=== PATIENT | male | born 1950 | race Caucasian/White ===

== ENCOUNTER 2016-03-28 03:35 | Emergency (ER) | payer OTHER ==
--- NOTE | 2016-03-28 04:19 | ER Document Report ---
ED Foreign Body - General Chief Complaint: Swallowed Foreign Body Stated Complaint: THROAT PROBLEMS Time seen by provider: 04:15 Notes: Patient is a 65-year-old male that comes emergency department for chief complaint of suspected swallowing of a foreign body, he states that he woke to feeling a small creature at the back of his throat and he states he accidentally swallowed this. Patient states there are tons of "tiny mice and lizards" in his room above a garage and he thinks he swallowed one. He states he had a mild discomfort at the back of his throat, denies any other symptoms. TRAVEL OUTSIDE OF THE [place] IN LAST 30 DAYS: No - Related Data Allergies/Adverse Reactions: "cholesterol medicines" Allergy (Uncoded 03/28/16 04:17) Past Medical History - General Information source: Patient - Social History Smoking Status: Never Smoker Chew tobacco use (# tins/day): No Frequency of alcohol use: None Drug Abuse: None Lives with: Alone Family History: Reviewed & Not Pertinent Patient has suicidal ideation: No Patient has homicidal ideation: No - Past Medical History Cardiac Medical History: Reports: Hx Atrial Fibrillation, Hx Hypertension Denies: Hx DVT Neurological Medical History: Reports: Hx Seizures Renal/ Medical History: Denies: Hx Peritoneal Dialysis Past Surgical History: Reports: Hx Neurologic Surgery - as a child for seizures - has not had seizures since that time. - Immunizations Immunizations up to date: Yes Hx Diphtheria, Pertussis, Tetanus Vaccination: No Review of Systems - Review of Systems Constitutional: No symptoms reported EENT: See HPI Cardiovascular: No symptoms reported Respiratory: See HPI Gastrointestinal: No symptoms reported Genitourinary: No symptoms reported Male Genitourinary: No symptoms reported Musculoskeletal: No symptoms reported Skin: No symptoms reported Hematologic/Lymphatic: No symptoms reported Neurological/Psychological: No symptoms reported Physical Exam - Vital signs Vitals: Temp Pulse BP Pulse Ox 97.9 F 114 H 140/74 H 94 03/28/16 03:40 03/28/16 03:40 03/28/16 03:40 03/28/16 03:40 Interpretation: Normal - General General appearance: Appears well, Alert In distress: None - HEENT Head: Normocephalic, Atraumatic Eyes: Normal Conjunctiva: Normal Extraocular movements intact: Yes Eyelashes: Normal Pupils: PERRL Nasal: Normal Mouth/Lips: Normal Mucous membranes: Normal Pharynx: Normal Neck: Normal - Respiratory Respiratory status: No respiratory distress. No: Respiratory distress, Tachypnea Chest status: Nontender Breath sounds: Normal. No: Decreased air movement, Wheezing Chest palpation: Normal - Cardiovascular Rhythm: Irregularly irregular, Tachycardia Heart sounds: S1 appreciated, S2 appreciated Murmur: No - Abdominal Inspection: Normal Distension: No distension Bowel sounds: Normal Tenderness: Nontender. No: Tender, Guarding Organomegaly: No organomegaly - Back Back: Normal, Nontender. No: Tender - Extremities General upper extremity: Normal inspection, Nontender, Normal color, Normal ROM , Normal temperature General lower extremity: Normal inspection, Nontender, Normal color, Normal ROM , Normal temperature, Normal weight bearing. 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 On reexamination patient states his throat no longer feels irritated, he denies any current symptoms. Patient found to have an elevated heart rate, patient is in atrial fibrillation. 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 Patient declines any additional workup, refuses any additional evaluation, states that he does agree that he will return immediately if he develops any chest pain, shortness of breath, dizziness , or any other concerning or worsening symptoms. Despite patient's slightly strange chief complaint, he is informed and clear with his statements about his medical history, his treatments and plan, and he does state clearly symptoms he will return for. - Vital Signs Vital signs: Temp Pulse Resp BP Pulse Ox 98.5 F 116 H 28 H 134/87 H 93 03/28/16 05:09 03/28/16 05:09 03/28/16 05:09 03/28/16 05:09 03/28/16 05:09 Discharge - Discharge Clinical Impression: Throat discomfort Condition: Stable Disposition: HOME, SELF-CARE Additional Instructions: No foreign bodies are seen on imaging, it is possibly swallowed an insect, no concerning findings on imaging. Your heart rate is elevated beyond a normal range, please continue your medications, call your provider for additional management as discussed. Please return immediately for any concerning symptoms including shortness of breath, chest pain, dizziness, etc.
[2016-03-28 05:10] VITALS: BP 134/87
== END 2016-03-28 05:40 | disposition home or self-care (01) ==
LOC: ER 03:35
DX: R09.89 Other specified symptoms and signs involving the circulatory and respiratory systems (principal); I48.91 Unspecified atrial fibrillation; I10 Essential (primary) hypertension; Z79.02 Long term (current) use of antithrombotics/antiplatelets
CPT/HCPCS: 70360; 71020; 99283

== ENCOUNTER 2016-07-17 12:53 | Emergency (ER) | payer SELFPAY ==
--- NOTE | 2016-07-17 13:46 | ER Document Report ---
ED Medical Screen (RME) - General Chief Complaint: Breathing Difficulty Stated Complaint: DIFFICULTY BREATHING Time Seen by Provider: 07/17/16 13:41 Mode of Arrival: Ambulatory Information source: Patient TRAVEL OUTSIDE OF THE [place] 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 Allergies/Adverse Reactions: Penicillins Allergy (Verified 07/17/16 12:56) "cholesterol medicines" Allergy (Uncoded 03/28/16 04:17) Past Medical History - General Information source: Patient - Social History Cigarette use (# per day): No - Past Medical History Cardiac Medical History: Reports: Hx Atrial Fibrillation, Hx Hypertension Denies: Hx DVT Pulmonary Medical History: Reports: None Neurological Medical History: Reports: Hx Seizures Endocrine Medical History: Reports: None Renal/ Medical History: Denies: Hx Peritoneal Dialysis Psychiatric Medical History: Reports: None Past Surgical History: Reports: Hx Neurologic Surgery - as a child for seizures - has not had seizures since that time. - Immunizations Immunizations up to date: Yes Hx Diphtheria, Pertussis, Tetanus Vaccination: No Review of Systems - Review of Systems Constitutional: No symptoms reported EENT: No symptoms reported Cardiovascular: Dyspnea Respiratory: Cough, Short of breath. denies: Wheezing Gastrointestinal: No symptoms reported Neurological/Psychological: No symptoms reported Physical Exam - Vital signs Vitals: Temp Pulse Resp BP Pulse Ox 98.3 F 97 26 H 156/102 H 94 07/17/16 12:56 07/17/16 12:56 07/17/16 12:56 07/17/16 12:56 07/17/16 12:56 Interpretation: Hypertensive, Tachypneic. No: Tachycardic, Hypoxic, Febrile - General General appearance: Appears well, Alert In distress: None - HEENT Head: Normocephalic Eyes: Normal - Respiratory Respiratory status: No respiratory distress Breath sounds: Rales - BIBASILAR - Cardiovascular Rhythm: Irregularly irregular - Abdominal Inspection: Morbidly Obese Course - Vital Signs Vital signs: Temp Pulse Resp BP Pulse Ox 98.3 F 97 26 H 156/102 H 94 07/17/16 12:56 07/17/16 12:56 07/17/16 12:56 07/17/16 12:56 07/17/16 12:56
[2016-07-17] MEDS ORDERED: IPRATROPIUM/ALBUTEROL 0.5-2.5 MG/3 ML AMPUL NEB ONE (14:31)
[2016-07-17 14:40] LABS: ABSOLUTE BASOPHILS # (AUTO) 0.1 10^3/uL (0.0-0.2); ABSOLUTE EOSINOPHILS # (AUTO) 0.5 10^3/uL (0.0-0.6); ABSOLUTE LYMPHOCYTES (AUTO) 1.3 10^3/uL (0.5-4.7); ABSOLUTE MONOCYTES (AUTO) 0.8 10^3/uL (0.1-1.4); ABSOLUTE NEUT (AUTO) 5.7 10^3/uL (1.7-8.2); BASOPHILS % (AUTO) 0.9 % (0-2); EOSINOPHILS % (AUTO) 5.8 % (0-6); HEMATOCRIT 41.8 % (37.9-51.0); HGB HCT DIFFERENCE 0.2; LYMPHOCYTES % (AUTO) 16.1 % (13-45); MEAN CORPUSCULAR HEMOGLOBIN 29.1 pg (27.0-33.4); MEAN CORPUSCULAR HGB CONC 33.5 g/dL (32.0-36.0); MEAN CORPUSCULAR VOLUME 87 fl (80-97); MONOCYTES % (AUTO) 9.4 % (3-13); RED BLOOD COUNT 4.82 10^6/uL (4.35-5.55); RED CELL DISTRIBUTION WIDTH 13.5 % (11.5-14.0); SEGMENTED NEUTROPHILS % (AUTO) 67.8 % (42-78); WHITE BLOOD COUNT 8.4 10^3/uL (4.0-10.5)
--- NOTE | 2016-07-17 14:57 | RADIOLOGY REPORT (SQ) ---
EXAM DESCRIPTION: CHEST PA/LAT COMPLETED DATE/TIME: 07/17/2016 2:39 pm REASON FOR STUDY: DYSPNEA, COUGH COMPARISON: 03/28/2016, 03/12/2015 NUMBER OF VIEWS: Two view TECHNIQUE: Frontal and lateral radiographic images of the chest acquired. LIMITATIONS: None. FINDINGS: LUNGS AND PLEURA: Chronic pleural thickening left costophrenic angle. Chronic volume loss on the left. No effusions. MEDIASTINUM AND HILAR STRUCTURES: Stable heart size and mediastinal structures. HEART AND VASCULAR STRUCTURES: Stable appearance. BONES: No acute findings. HARDWARE: None in the chest. OTHER: No other significant finding. IMPRESSION: Stable, chronic changes. TECHNICAL DOCUMENTATION: JOB ID: [id number] [employer]- All Rights Reserved
[2016-07-17 14:58] LABS: ALANINE AMINOTRANSFERASE 28 U/L (21-72); ALBUMIN 3.8 g/dL (3.5-5.0); ALKALINE PHOSPHATASE 72 U/L (38-126); ANION GAP 10 (5-19); ASPARTATE AMINO TRANSFERASE 30 U/L (17-59); BILIRUBIN,DIRECT 0.3 mg/dL (0.0-0.4); BILIRUBIN,TOTAL 0.5 mg/dL (0.2-1.3); BLOOD UREA NITROGEN 11 mg/dL (7-20); CALCIUM 9.2 mg/dL (8.4-10.2); CARBON DIOXIDE 26 mmol/L (22-30); CHLORIDE 102 mmol/L (98-107); CREATININE RESULT 0.71 mg/dL (0.52-1.25); GLUCOSE 102 mg/dL (75-110); POTASSIUM 4.1 mmol/L (3.6-5.0); TOTAL PROTEIN 6.8 g/dL (6.3-8.2)
--- NOTE | 2016-07-17 15:01 | ER Document Report ---
ED General - General Chief Complaint: Breathing Difficulty Stated Complaint: DIFFICULTY BREATHING Time Seen by Provider: 07/17/16 13:41 Mode of Arrival: Ambulatory Information source: Patient Notes: 66-year-old male presents with complaints of shortness of breath. Patient notes that he has a history of A. fib is on Eliquis patient denies any fevers or chills admits that he is just feeling weak. Denies any chest pain denies any bloody bowel movements or vomiting TRAVEL OUTSIDE OF THE [place] IN LAST 30 DAYS: No - HPI Onset: Other - 2 week duration Onset/Duration: Persistent Quality of pain: No pain Severity: Mild Pain Level: Denies Associated symptoms: Shortness of breath, Weakness Exacerbated by: Denies Relieved by: Denies Similar symptoms previously: Yes Recently seen / treated by doctor: Yes - Related Data Allergies/Adverse Reactions: Penicillins Allergy (Verified 07/17/16 12:56) "cholesterol medicines" Allergy (Uncoded 03/28/16 04:17) Past Medical History - General Information source: Patient - Social History Smoking Status: Never Smoker Cigarette use (# per day): No Chew tobacco use (# tins/day): No Smoking Education Provided: No Frequency of alcohol use: None Family History: Reviewed & Not Pertinent Patient has suicidal ideation: No Patient has homicidal ideation: No - Past Medical History Cardiac Medical History: Reports: Hx Atrial Fibrillation, Hx Hypertension Denies: Hx DVT Pulmonary Medical History: Reports: None Neurological Medical History: Reports: Hx Seizures Endocrine Medical History: Reports: None Renal/ Medical History: Denies: Hx Peritoneal Dialysis Psychiatric Medical History: Reports: None Past Surgical History: Reports: Hx Neurologic Surgery - as a child for seizures - has not had seizures since that time. - Immunizations Immunizations up to date: Yes Hx Diphtheria, Pertussis, Tetanus Vaccination: No Review of Systems - Review of Systems Notes: REVIEW OF SYSTEMS: CONSTITUTIONAL : Denies fever, chills, or sweats. Denies recent illness. EENT: Denies eye, ear, throat, or mouth pain or symptoms. Denies nasal or sinus congestion or discharge. Denies throat, tongue, or mouth swelling or difficulty swallowing. CARDIOVASCULAR: Denies chest pain. Denies palpitations or racing or irregular heart beat. Denies ankle edema. RESPIRATORY: Admits to shortness of breath GASTROINTESTINAL: Denies abdominal pain or distention. Denies nausea, vomiting , or diarrhea. Denies blood in vomitus, stools, or per rectum. Denies black, tarry stools. Denies constipation. GENITOURINARY: Denies difficulty urinating, painful urination, burning, frequency, blood in urine, or discharge. MUSCULOSKELETAL: Denies back or neck pain or stiffness. Denies joint pain or swelling. SKIN: Denies rash, lesions or sores. HEMATOLOGIC : Denies easy bruising or bleeding. LYMPHATIC: Denies swollen, enlarged glands. NEUROLOGICAL: Denies confusion or altered mental status. Denies passing out or loss of consciousness. Denies dizziness or lightheadedness. Denies headache. Denies weakness or paralysis or loss of use of either side. Denies problems with gait or speech. Denies sensory loss, numbness, or tingling. Denies seizures. PSYCHIATRIC: Denies anxiety or stress. Denies depression, suicidal ideation, or homicidal ideation. ALL OTHER SYSTEMS REVIEWED AND NEGATIVE. Dictation was performed using [employer] voice recognition software PHYSICAL EXAMINATION: GENERAL: Well-appearing, well-nourished and in no acute distress. HEAD: Atraumatic, normocephalic. EYES: Pupils equal round and reactive to light, extraocular movements intact, sclera anicteric, conjunctiva are normal. ENT: Nares patent, oropharynx clear without exudates. Moist mucous membranes. NECK: Normal range of motion, supple without lymphadenopathy LUNGS: Breath sounds clear to auscultation bilaterally and equal. No wheezes rales or rhonchi. HEART: Irregular rate and rhythm ABDOMEN: Soft, nontender, nondistended abdomen. No guarding, no rebound. No masses appreciated. Musculoskeletal: Normal range of motion, no pitting or edema. No cyanosis. NEUROLOGICAL: Cranial nerves grossly intact. Normal speech, normal gait. Normal sensory, motor exams PSYCH: Normal mood, normal affect. SKIN: Warm, Dry, normal turgor, no rashes or lesions noted. Physical Exam - Vital signs Vitals: Temp Pulse Resp BP Pulse Ox 98.3 F 97 26 H 156/102 H 94 07/17/16 12:56 07/17/16 12:56 07/17/16 12:56 07/17/16 12:56 07/17/16 12:56 Course - Re-evaluation Re-evalutation: 07/17/16 15:01 Patient is currently in a flutter, he states he is on Cardizem and Eliquis. Otherwise he appears well, a CT of the chest has been ordered nonetheless. 07/17/16 17:25 CT noted no significant abnormality. Patient is otherwise well-appearing in no distress. 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 Patient is covered with both blood thinner and rate control therefore I do not expect his a flutter to be a specific issue After performing a Medical Screening Examination, I estimate there is LOW risk for INTRACRANIAL HEMORRHAGE, ISCHEMIC CVA, MALIGNANT DYSRHYTHMIA, ACUTE CORONARY SYNDROME, MENINGITIS, PULMONARY EMBOLISM, or SEPSIS thus I consider the discharge disposition reasonable. I have reevaluated this patient multiple times and no significant life threatening changes are noted. The patient and I have discussed the diagnosis and risks, and we agree with discharging home with close follow-up with the understanding that symptoms and presentations can change. We also discussed returning to the Emergency Department immediately if new or worsening symptoms occur. We have discussed the symptoms which are most concerning (e.g., changing or worsening pain, weakness, vomiting, fever) that necessitate immediate return. - Vital Signs Vital signs: Temp Pulse Resp BP Pulse Ox 98.3 F 97 26 H 156/102 H 94 07/17/16 12:56 07/17/16 12:56 07/17/16 12:56 07/17/16 12:56 07/17/16 12:56 - Laboratory Result Diagrams: 07/17/16 14:25 07/17/16 14:25 - Diagnostic Test Radiology reviewed: Image reviewed, Reports reviewed - EKG Interpretation by Me EKG shows normal: Sinus rhythm, [place], Intervals Rhythm: A.Flutter Discharge - Discharge Clinical Impression: Atrial flutter Qualifiers: Atrial flutter type: typical Qualified Code(s): I48.3 - Typical atrial flutter High blood pressure Qualifiers: Hypertension type: essential hypertension Qualified Code(s): I10 - Essential ( primary) hypertension Condition: Stable Disposition: HOME, SELF-CARE Instructions: Atrial Fibrillation ([facility]) Referrals: [facility] [Primary Care Provider] - Follow up tomorrow
[2016-07-17 15:19] LABS: TROPONIN I < 0.012 ng/mL
--- NOTE | 2016-07-17 16:41 | RADIOLOGY REPORT (SQ) ---
EXAM DESCRIPTION: CTA CHEST COMPLETED DATE/TIME: 07/17/2016 4:18 pm REASON FOR STUDY: hx afib , sob COMPARISON: None. TECHNIQUE: CT scan of the chest performed using helical scanning technique with dynamic intravenous contrast injection. Images reviewed with lung, soft tissue and bone windows. Reconstructed coronal and sagittal MPR images reviewed. Additional 3 dimensional post-processing performed to develop Maximal Intensity Projection images (TX P). All images stored on PACS. All CT scanners at this facility use dose modulation, iterative reconstruction, and/or weight based d osing when appropriate to reduce radiation dose to as low as reasonably achievable (ALARA). [facility]: Dose Right [facility]: CareDose [facility]: Dose Right [facility]: Teradose 4D [facility]: [employer] CONTRAST TYPE AND DOSE: 86 mL Isovue 370- low osmolar. RENAL FUNCTION: GFR > 60. RADIATION DOSE: 79.69 mGy. LIMITATIONS: None. FINDINGS: LUNGS AND PLEURA: No pneumothorax. Chronic interstitial changes and platelike atelectasis in the left upper lobe and middle lobe. Small bilateral Subpleural nodularity some of which appears calcified. No pleural effusions. AORTA AND GREAT VESSELS: No aneurysm or dissection. HEART: No pericardial effusion. PULMONARY ARTERIES: No emboli visualized in the main pulmonary arteries or the segmental branches. HILAR AND MEDIASTINAL STRUCTURES: Scattered small nodes. HARDWARE: None in the chest. UPPER ABDOMEN: 5 cm left renal cyst. Limited exam. THYROID AND OTHER SOFT TISSUES: No masses. No adenopathy. BONES: No acute or significant finding. 3D MIPS: Confirm above findings. OTHER: No other significant finding. IMPRESSION: No emboli visualized in the main pulmonary arteries or the segmental branches. Chronic interstitial changes and platelike atelectasis in the left upper lobe and middle lobe. Smal l bilateral Subpleural nodularity some of which appears calcified. Consider follow-up scan in 4-6 mo nths to document stability of pulmonary findings. TECHNICAL DOCUMENTATION: JOB ID: [id number] Quality ID # [id number]: Final reports with documentation of one or more dose reduction techniques (e.g., Au tomated exposure control, adjustment of the mA and/or kV according to patient size, use of iterative reconstruction technique) 2010 [employer]- All Rights Reserved
--- NOTE | 2016-07-17 17:06 | EKG REPORT ---
SEVERITY:- ABNORMAL ECG - ATRIAL FLUTTER, A-RATE 283 NONSPECIFIC INTRAVENTRICULAR CONDUCTION DELAY : Confirmed by: Nona Burris 17-Jul-2016 17:05:51
[2016-07-17 17:46] VITALS: BP 135/102
== END 2016-07-17 17:46 | disposition home or self-care (01) ==
LOC: ER 12:53
DX: I48.3 Typical atrial flutter (principal); I10 Essential (primary) hypertension; R53.1 Weakness; R06.02 Shortness of breath
CPT/HCPCS: 93005; 94640; 99285; 36415; 85025; 80053; 84484; 83880; 71020; 71275; 93010; J7620

== ENCOUNTER 2017-02-28 10:22 | Emergency (ER) | payer OTHER ==
--- NOTE | 2017-02-28 10:37 | ER Document Report ---
ED Medical Screen (RME) - General Chief Complaint: Dizziness Stated Complaint: POSSIBLE SIDE EFFECTS TO MEDICATION Time Seen by Provider: 02/28/17 10:36 Mode of Arrival: Wheelchair Information source: Patient TRAVEL OUTSIDE OF THE [place] IN LAST 30 DAYS: No - HPI Patient complains to provider of: dizziness Onset: Other - pt. states he was recently started on diltiazem and feels the medicine is making him dizzy and sleepy - Related Data Allergies/Adverse Reactions: Penicillins Allergy (Verified 02/28/17 10:26) "cholesterol medicines" Allergy (Uncoded 02/28/17 10:26) Past Medical History - Past Medical History Cardiac Medical History: Reports: Hx Atrial Fibrillation, Hx Hypertension Denies: Hx DVT Neurological Medical History: Reports: Hx Seizures Renal/ Medical History: Denies: Hx Peritoneal Dialysis Past Surgical History: Reports: Hx Neurologic Surgery - as a child for seizures - has not had seizures since that time. - Immunizations Immunizations up to date: Yes Hx Diphtheria, Pertussis, Tetanus Vaccination: No Physical Exam - Vital signs Vitals: Temp Pulse Resp BP Pulse Ox 98.1 F 105 H 24 H 164/109 H 92 02/28/17 10:28 02/28/17 10:28 02/28/17 10:28 02/28/17 10:28 02/28/17 10:28 Course - Vital Signs Vital signs: Temp Pulse Resp BP Pulse Ox 98.1 F 105 H 24 H 164/109 H 92 02/28/17 10:28 02/28/17 10:28 02/28/17 10:28 02/28/17 10:28 02/28/17 10:28
[2017-02-28 11:45] LABS: ABSOLUTE BASOPHILS # (AUTO) 0.1 10^3/uL (0.0-0.2); ABSOLUTE EOSINOPHILS # (AUTO) 0.3 10^3/uL (0.0-0.6); ABSOLUTE LYMPHOCYTES (AUTO) 1.4 10^3/uL (0.5-4.7); ABSOLUTE NEUT (AUTO) 7.4 10^3/uL (1.7-8.2); BASOPHILS % (AUTO) 0.5 % (0-2); EOSINOPHILS % (AUTO) 2.6 % (0-6); HEMATOCRIT 42.5 % (37.9-51.0); HEMOGLOBIN 14.6 g/dL (13.5-17.0); LYMPHOCYTES % (AUTO) 13.9 % (13-45); MEAN CORPUSCULAR HEMOGLOBIN 29.8 pg (27.0-33.4); MEAN CORPUSCULAR HGB CONC 34.4 g/dL (32.0-36.0); MEAN CORPUSCULAR VOLUME 87 fl (80-97); MONOCYTES % (AUTO) 10.1 % (3-13); PLATELET COUNT 240 10^3/uL (150-450); RED BLOOD COUNT 4.91 10^6/uL (4.35-5.55); RED CELL DISTRIBUTION WIDTH 13.9 % (11.5-14.0); SEGMENTED NEUTROPHILS % (AUTO) 72.9 % (42-78); TOTAL CELLS COUNTED % (AUTO) 100 %; WHITE BLOOD COUNT 10.2 10^3/uL (4.0-10.5)
[2017-02-28 12:01] LABS: ALBUMIN 4.2 g/dL (3.5-5.0); ANION GAP 10 (5-19); BLOOD UREA NITROGEN 13 mg/dL (7-20); CARBON DIOXIDE 29 mmol/L (22-30); CHLORIDE 101 mmol/L (98-107); GLUCOSE 104 mg/dL (75-110); POTASSIUM 4.2 mmol/L (3.6-5.0); SODIUM 139.9 mmol/L (137-145); TOTAL PROTEIN 6.7 g/dL (6.3-8.2)
[2017-02-28 12:03] LABS: ALANINE AMINOTRANSFERASE 27 U/L (21-72); ALKALINE PHOSPHATASE 80 U/L (38-126); ASPARTATE AMINO TRANSFERASE 26 U/L (17-59); BILIRUBIN,DIRECT 0.2 mg/dL (0.0-0.4); BILIRUBIN,TOTAL 0.5 mg/dL (0.2-1.3); CALCIUM 9.7 mg/dL (8.4-10.2); CREATINE KINASE 132 U/L (55-170)
[2017-02-28 12:08] LABS: APPEARANCE,URINE CLEAR; BILIRUBIN,URINE NEGATIVE (NEGATIVE); COLOR,URINE YELLOW; GLUCOSE, URINE NEGATIVE (NEGATIVE); KETONES,URINE NEGATIVE (NEGATIVE); LEUKOCYTE ESTERASE,URINE NEGATIVE (NEGATIVE); NITRITE,URINE NEGATIVE (NEGATIVE); PROTEIN,URINE NEGATIVE (NEGATIVE); URINE SPECIFIC GRAVITY 1.013
[2017-02-28 12:13] LABS: CREATINE KINASE MB 1.67 ng/mL (<4.55)
[2017-02-28 12:16] LABS: TROPONIN I < 0.012 ng/mL
--- NOTE | 2017-02-28 13:00 | RADIOLOGY REPORT (SQ) ---
EXAM DESCRIPTION: CT HEAD WITHOUT COMPLETED DATE/TIME: 02/28/2017 12:29 pm REASON FOR STUDY: dizziness COMPARISON: None. TECHNIQUE: Axial images acquired through the brain without intravenous contrast. Images reviewed wi th bone, brain and subdural windows. Images stored on PACS. All CT scanners at this facility use dose modulation, iterative reconstruction, and/or weight based d osing when appropriate to reduce radiation dose to as low as reasonably achievable (ALARA). [facility]: Dose Right [facility]: CareDose [facility]: Dose Right [facility]: Teradose 4D [facility]: [employer] RADIATION DOSE: CT Rad equipment meets quality standard of care and radiation dose reduction techniq ues were employed. CTDIvol: 60.5 mGy. DLP: 1163 mGy-cm. mGy. LIMITATIONS: None. FINDINGS: VENTRICLES: Normal size and contour. CEREBRUM: No hemorrhage. No midline shift. Encephalomalacia is noted at the left temporal lobe. O therwise, the lopez-white matter differentiation is preserved. There is no evidence for acute territo rial infarct. CEREBELLUM: No hemorrhage. No alteration of density. No evidence for acute infarction. EXTRAAXIAL SPACES: There is hyperdensity along the left cerebral convexity measuring up to 2 mm in th ickness. ORBITS AND GLOBE: Symmetrical contour of the globes. CALVARIUM: Postsurgical changes of craniotomy at the left calvarium. No depressed fracture. PARANASAL SINUSES: Mild mucosal thickening at the maxillary sinuses. SOFT TISSUES: No hematoma. IMPRESSION: Linear hyperdensity along the left cerebral convexity, may represent a small subdural he morrhage versus postsurgical changes. Comparison with prior studies would be helpful. If none are a vailable, short-term followup CT can be obtained to re-evaluate. No acute territorial infarct. Encephalomalacia at the left temporal lobe, may be related to prior lebron rgery. EVIDENCE OF ACUTE STROKE: NO. COMMENT: Pertinent positive or negative findings of the imaging study reported as a CRITICAL EXAM kimberly AVITIA DO at12:48 hrs on 02/28/2017. Category of Critical Exam: Linear hyperdensity along the left cerebral convexity, may represent a sma ll subdural hemorrhage versus postsurgical changes. Quality ID # [id number]: Final reports with documentation of one or more dose reduction techniques (e.g., Au tomated exposure control, adjustment of the mA and/or kV according to patient size, use of iterative reconstruction technique) TECHNICAL DOCUMENTATION: JOB ID: [id number] [place]-64 2010 [employer]- All Rights Reserved
--- NOTE | 2017-02-28 13:07 | RADIOLOGY REPORT (SQ) ---
EXAM DESCRIPTION: CHEST PA/LAT COMPLETED DATE/TIME: 02/28/2017 12:57 pm REASON FOR STUDY: cough COMPARISON: 07/17/2016, 03/28/2016 EXAM PARAMETERS: NUMBER OF VIEWS: two views TECHNIQUE: Digital Frontal and Lateral radiographic views of the chest acquired. RADIATION DOSE: NA LIMITATIONS: none FINDINGS: LUNGS AND PLEURA: Diffuse chronic pleural and parenchymal changes. All stable no acute op acities. MEDIASTINUM AND HILAR STRUCTURES: No masses or contour abnormalities. HEART AND VASCULAR STRUCTURES: Heart normal size. No evidence for failure. BONES: No acute findings. HARDWARE: None in the chest. OTHER: No other significant finding. IMPRESSION: Chronic changes. No acute findings. TECHNICAL DOCUMENTATION: JOB ID: [id number] [employer]- All Rights Reserved
[2017-02-28 13:16] LABS: INTERNATIONAL RATION (INR) 1.01
[2017-02-28 13:17] LABS: PARTIAL THROMBOPLASTIN TIME 37.8 SEC (23.5-35.8)
--- NOTE | 2017-02-28 14:34 | ER Document Report ---
ED General - General Chief Complaint: Dizziness Stated Complaint: POSSIBLE SIDE EFFECTS TO MEDICATION Time Seen by Provider: 02/28/17 10:36 Mode of Arrival: Wheelchair TRAVEL OUTSIDE OF THE [place] IN LAST 30 DAYS: No - HPI Patient complains to provider of: Dizziness Notes: Patient coming in with a history of A. shani on Xarelto states multiple syncopal episodes over the last week along with associated dyspnea states dizziness last for approximately 15 minutes. Patient states no head trauma states last time he has syncopal episodes approximately night prior when he fell into the toilet however denies hitting his head. Patient denies any other met past medical history other than seizure disorder which he had intracranial surgery performed in 1992 which cured his seizures. Patient states currently followed up with [facility] for his cardiac issues. Patient denies any fevers chills nausea vomiting diarrhea resting comfortably upon my evaluation. - Related Data Allergies/Adverse Reactions: Penicillins Allergy (Verified 02/28/17 10:26) "cholesterol medicines" Allergy (Uncoded 02/28/17 10:26) Home Medications: Current Home Medications Diltiazem HCl [Diltiazem ER] 180 mg PO DAILY 02/28/17 [History] Rivaroxaban [Xarelto] 20 mg PO QPM 02/28/17 [History] Past Medical History - General Information source: Patient - Social History Smoking Status: Former Smoker Frequency of alcohol use: None Drug Abuse: None Family History: Reviewed & Not Pertinent Patient has suicidal ideation: No Patient has homicidal ideation: No - Past Medical History Cardiac Medical History: Reports: Hx Atrial Fibrillation, Hx Hypertension Denies: Hx DVT Neurological Medical History: Reports: Hx Seizures Renal/ Medical History: Denies: Hx Peritoneal Dialysis Past Surgical History: Reports: Hx Neurologic Surgery - as a child for seizures - has not had seizures since that time. - Immunizations Immunizations up to date: Yes Hx Diphtheria, Pertussis, Tetanus Vaccination: No Review of Systems - Review of Systems Constitutional: No symptoms reported EENT: No symptoms reported Cardiovascular: Syncope Respiratory: No symptoms reported Gastrointestinal: No symptoms reported Genitourinary: No symptoms reported Male Genitourinary: No symptoms reported Musculoskeletal: No symptoms reported Skin: No symptoms reported Hematologic/Lymphatic: No symptoms reported Neurological/Psychological: Other - Dizziness -: Yes All other systems reviewed and negative Physical Exam - Vital signs Vitals: Temp Pulse Resp BP Pulse Ox 98.1 F 105 H 24 H 164/109 H 92 02/28/17 10:28 02/28/17 10:28 02/28/17 10:28 02/28/17 10:28 02/28/17 10:28 Interpretation: Normal - General General appearance: Appears well, Alert - HEENT Head: Normocephalic, Atraumatic Eyes: Normal Pupils: PERRL - Respiratory Respiratory status: No respiratory distress Chest status: Nontender Breath sounds: Normal Chest palpation: Normal - Cardiovascular Rhythm: Irregularly irregular Heart sounds: Normal auscultation Murmur: No - Abdominal Inspection: Normal Distension: No distension Bowel sounds: Normal Tenderness: Nontender Organomegaly: No organomegaly - Back Back: Normal, Nontender - Extremities General upper extremity: Normal inspection, Nontender, Normal color, Normal ROM , Normal temperature General lower extremity: Normal inspection, Nontender, Normal color, Normal ROM , Normal temperature, Normal weight bearing. No: Kimberly's sign - Neurological Neuro grossly intact: Yes Cognition: Normal Orientation: AAOx4 Alba Coma Scale Eye Opening: Spontaneous Alba Coma Scale Verbal: Oriented Irving Coma Scale Motor: Obeys Commands Alba Coma Scale Total: 15 Speech: Normal Motor strength normal: LUE, RUE, LLE, RLE Sensory: Normal - Psychological Associated symptoms: Normal affect, Normal mood - Skin Skin Temperature: Warm Skin Moisture: Dry Skin Color: Normal Course - Re-evaluation Re-evalutation: 02/28/17 14:33 Notified by the radiology team concern for possible subdural versus chronic surgical changes this was performed prior to my actual evaluation of the patient upon evaluated patient and obtaining a surgical history I did conference again with the radiologist in the light of the surgery being performed and 1993 the radiologist at this time thinks that the subdurals more likely acute. Patient coming in for dizziness CT scan shows a possible small subdural. Patient is on Xarelto. Patient has significant cardiac history states he gets his care at [facility]. Patient's case was discussed with neurosurgery [facility] however at this time [facility] is on diversion and not accepting any transfers. I will discuss with the team at [facility] patient agrees with this at this time. 02/28/17 15:51 Discussed with neurosurgery team at [facility] discussed with mid-level eduardo covering for attending Waldemar Schmidt is that the patient in transfer. There is a long wait time he did attempt to place the patient on the wait list at [facility] as well however they are also reduced at capacity. At this time patient has GCS 15 no neurological symptoms. We will continue the patient's Cardizem will hold Xarelto I do feel the patient is appropriate to be observed here until transport can be arranged. 02/28/17 15:52 - Vital Signs Vital signs: Temp Pulse Resp BP Pulse Ox 98.2 F 97 26 H 126/114 H 91 L 02/28/17 15:19 02/28/17 12:00 02/28/17 13:01 02/28/17 13:01 02/28/17 13:01 - Laboratory Result Diagrams: 02/28/17 11:10 02/28/17 11:10 Laboratory results interpreted by me: 02/28/17 02/28/17 11:01 11:10 APTT 37.8 H Urine Urobilinogen 4.0 H Discharge - Discharge Clinical Impression: Subdural hemorrhage Atrial fibrillation Qualifiers: Atrial fibrillation type: unspecified Qualified Code(s): I48.91 - Unspecified atrial fibrillation Condition: Good Disposition: [facility] Referrals: [facility] [Primary Care Provider] - Follow up as needed
--- NOTE | 2017-02-28 15:15 | EKG REPORT ---
SEVERITY:- ABNORMAL ECG - ATRIAL FIBRILLATION, V-RATE 79-135 BORDERLINE PROLONGED QT INTERVAL : Confirmed by: Kelechi Isbell MD 28-Feb-2017 15:15:05
[2017-02-28 18:30] VITALS: BP 156/96
--- NOTE | 2017-02-28 19:03 | ER Document Report ---
Doctor's Note Notes: 02/28/17 19:03 Sent has remained stable throughout his stay in the emergency department. Transport is here and they are getting him ready to transport him.
== END 2017-02-28 18:55 | disposition short-term general hospital (02) ==
LOC: ER 10:22
DX: I62.00 Nontraumatic subdural hemorrhage, unspecified (principal); I48.91 Unspecified atrial fibrillation; R42 Dizziness and giddiness; I10 Essential (primary) hypertension; Z88.0 Allergy status to penicillin; Z79.02 Long term (current) use of antithrombotics/antiplatelets
CPT/HCPCS: 36415; 70450; 71046; 80053; 81001; 82550; 82553; 84484; 85025; 85610; 85730; 93005; 93010; 99285

== ENCOUNTER 2017-03-14 16:30 | Inpatient (IN) | payer OTHER ==
--- NOTE | 2017-03-14 16:58 | ER Document Report ---
ED General - General Chief Complaint: Shortness Of Breath Stated Complaint: DIFFICULTY BREATHING TRAVEL OUTSIDE OF THE [place] IN LAST 30 DAYS: No - HPI Notes: Patient is a 66-year-old male with a history of A. fib (on xarelto), COPD, recent pacemaker placement who presents the ED complaining of feeling short of breath and chest tightness over the last 3 hours. Patient states that he is starting to feel better than he did originally. Patient states that he did get an oxygen machine at home in the mail recently, but has not started it yet. Patient states he also has nasal congestion discharge over the last 4-5 days. Patient had his pacemaker placed this past Wednesday was also given the flu vaccine at that time. Patient states he is still eating and drinking without any difficulties. He is urinating normally having normal bowel movements. Patient has not noted any pain anywhere. Patient states he has shortness of breath at rest and with ambulation. He has not noted any leg pains. Denies any prolonged travel. Denies any cardiac stents, NH, or bypass. Denies any headache, fever, neck pain, sore throat, chest pain, palpitations, syncope, cough, abdominal pain, nausea/vomiting/diarrhea, urinary retention, dysuria, hematuria, numbness/tingling, muscle paralysis/weakness, or rash. - Related Data Allergies/Adverse Reactions: Penicillins Allergy (Verified 03/14/17 16:30) "cholesterol medicines" Allergy (Uncoded 03/14/17 16:30) Past Medical History - Social History Smoking Status: Former Smoker Family History: Reviewed & Not Pertinent - Past Medical History Cardiac Medical History: Reports: Hx Atrial Fibrillation, Hx Hypertension Denies: Hx DVT Neurological Medical History: Reports: Hx Seizures Renal/ Medical History: Denies: Hx Peritoneal Dialysis Past Surgical History: Reports: Hx Neurologic Surgery - as a child for seizures - has not had seizures since that time. - Immunizations Immunizations up to date: Yes Hx Diphtheria, Pertussis, Tetanus Vaccination: No Review of Systems - Review of Systems Notes: REVIEW OF SYSTEMS: CONSTITUTIONAL : Denies fever, chills, or sweats. Denies recent illness. EENT: see hpi CARDIOVASCULAR: Denies chest pain. Denies palpitations or racing or irregular heart beat. Denies ankle edema. RESPIRATORY: Denies cough, cold, or chest congestion. see hpi GASTROINTESTINAL: Denies abdominal pain or distention. Denies nausea, vomiting , or diarrhea. Denies blood in vomitus, stools, or per rectum. Denies black, tarry stools. Denies constipation. GENITOURINARY: Denies difficulty urinating, painful urination, burning, frequency, blood in urine, or discharge. MUSCULOSKELETAL: Denies back or neck pain or stiffness. Denies joint pain or swelling. SKIN: Denies rash, lesions or sores. NEUROLOGICAL: Denies confusion or altered mental status. Denies passing out or loss of consciousness. Denies dizziness or lightheadedness. Denies headache. Denies weakness or paralysis or loss of use of either side. Denies problems with gait or speech. Denies sensory loss, numbness, or tingling. Denies seizures. PSYCHIATRIC: Denies anxiety or stress. Denies depression, suicidal ideation, or homicidal ideation. ALL OTHER SYSTEMS REVIEWED AND NEGATIVE. Dictation was performed using [employer] voice recognition software Physical Exam - Vital signs Vitals: Temp Pulse BP Pulse Ox 98.7 F 101 H 142/91 H 92 03/14/17 16:36 03/14/17 16:36 03/14/17 16:36 03/14/17 16:36 - Notes Notes: PHYSICAL EXAMINATION: GENERAL: Well-appearing, well-nourished and in no acute distress. A&Ox4. Answers questions appropriately. HEAD: Atraumatic, normocephalic. EYES: Pupils equal round and reactive to light, extraocular movements intact, sclera anicteric, conjunctiva are normal. ENT: Nares patent and without discharge. oropharynx clear without exudates. No tonsilar hypertrophy or erythema. Moist mucous membranes. No sinus tenderness. NECK: Normal range of motion, supple without lymphadenopathy LUNGS: Pt speaking in 3-4 word sentences before stopping to catch breath. CTAB otherwise. HEART: Regular rate and rhythm without murmurs, rubs, gallops. ABDOMEN: Soft, nontender, nondistended abdomen. No guarding, no rebound. No masses appreciated. Normal bowel sounds present. No CVA tenderness bilaterally. Musculoskeletal: FROM to passive/active. Strength 5+/5. Kimberly neg. No calf erythema/swelling. Extremities: 2-3+ pitting edema b/l. Peripheral pulses 2+. Capillary refill less than 3 seconds. NEUROLOGICAL: Normal speech. Normal sensory, motor exams PSYCH: Normal mood, normal affect. SKIN: Warm, Dry, normal turgor, no rashes or lesions noted. Course - Re-evaluation Re-evalutation: 03/14/17 17:56 Patient is an afebrile, well-hydrated, 66-year-old male who presents to the ED with hypoxia and suspected right lower lobe pneumonia. Vitals are stable on 2 L of oxygen with an oxygen saturation of 93% and not tachycardic. Patient is normotensive. PE is otherwise unremarkable. CBC, CMP, cardiac enzymes 1/EKG 1, rapid influenza were all unremarkable for any acute pathology. See chest x- ray result. Differential does include viral pneumonia. Patient is tolerating p.o. without any difficulties. He has not had any new or worsening symptoms. Low suspicion for any ACS, PE, pneumothorax, pericarditis, dissection, respiratory compromise, severe dehydration, sepsis, meningitis, or other systemic emergent condition at this time. I did review this case with Dr. Ling who is in agreement that patient needs admission. Dr. Ly accepted patient for admit. Pt is in agreement. Ordered magnesium, duoneb, levaquin. - Vital Signs Vital signs: Temp Pulse Resp BP Pulse Ox 98.7 F 101 H 24 H 130/87 H 94 03/14/17 16:36 03/14/17 16:36 03/14/17 17:27 03/14/17 17:27 03/14/17 17:27 - Laboratory Result Diagrams: 03/14/17 16:48 03/14/17 16:48 Laboratory results interpreted by me: 03/14/17 03/14/17 03/14/17 16:48 16:48 16:48 RDW 14.1 H PT 25.6 H Glucose 117 H Discharge - Discharge Clinical Impression: Hypoxia Pneumonia Qualifiers: Pneumonia type: due to unspecified organism Laterality: right Lung location: lower lobe of lung Qualified Code(s): J18.1 - Lobar pneumonia, unspecified organism Condition: Stable Disposition: ADMITTED INPATIENT Admitting Provider: Hospitalist - Dr. Ly Unit Admitted: Telemetry
[2017-03-14 17:00] LABS: ABSOLUTE EOSINOPHILS # (AUTO) 0.4 10^3/uL (0.0-0.6); ABSOLUTE LYMPHOCYTES (AUTO) 1.3 10^3/uL (0.5-4.7); ABSOLUTE MONOCYTES (AUTO) 0.8 10^3/uL (0.1-1.4); ABSOLUTE NEUT (AUTO) 7.2 10^3/uL (1.7-8.2); BASOPHILS % (AUTO) 0.5 % (0-2); EOSINOPHILS % (AUTO) 4.3 % (0-6); HEMATOCRIT 42.3 % (37.9-51.0); HEMOGLOBIN 13.9 g/dL (13.5-17.0); LYMPHOCYTES % (AUTO) 13.8 % (13-45); MEAN CORPUSCULAR HEMOGLOBIN 28.7 pg (27.0-33.4); MEAN CORPUSCULAR HGB CONC 32.9 g/dL (32.0-36.0); MEAN CORPUSCULAR VOLUME 87 fl (80-97); MONOCYTES % (AUTO) 8.3 % (3-13); PLATELET COUNT 238 10^3/uL (150-450); RED BLOOD COUNT 4.84 10^6/uL (4.35-5.55); RED CELL DISTRIBUTION WIDTH 14.1 % (11.5-14.0); SEGMENTED NEUTROPHILS % (AUTO) 73.1 % (42-78); TOTAL CELLS COUNTED % (AUTO) 100 %; WHITE BLOOD COUNT 9.8 10^3/uL (4.0-10.5)
[2017-03-14 17:10] LABS: PROTHROMBIN TIME 25.6 SEC (11.4-15.4)
[2017-03-14 17:21] LABS: ALANINE AMINOTRANSFERASE 29 U/L (21-72); ALBUMIN 4.1 g/dL (3.5-5.0); ALKALINE PHOSPHATASE 82 U/L (38-126); ANION GAP 11 (5-19); ASPARTATE AMINO TRANSFERASE 29 U/L (17-59); BILIRUBIN,DIRECT 0.3 mg/dL (0.0-0.4); BILIRUBIN,TOTAL 0.4 mg/dL (0.2-1.3); BLOOD UREA NITROGEN 14 mg/dL (7-20); CALCIUM 8.7 mg/dL (8.4-10.2); CARBON DIOXIDE 29 mmol/L (22-30); CHLORIDE 103 mmol/L (98-107); CREATINE KINASE 110 U/L (55-170); GLUCOSE 117 mg/dL (75-110); POTASSIUM 4.2 mmol/L (3.6-5.0); SODIUM 142.6 mmol/L (137-145); TOTAL PROTEIN 6.9 g/dL (6.3-8.2)
[2017-03-14 17:33] LABS: CREATINE KINASE MB 1.42 ng/mL (<4.55)
[2017-03-14 17:37] LABS: TROPONIN I < 0.012 ng/mL
--- NOTE | 2017-03-14 17:39 | RADIOLOGY REPORT (SQ) ---
EXAM DESCRIPTION: CHEST SINGLE VIEW COMPLETED DATE/TIME: 03/14/2017 5:29 pm REASON FOR STUDY: Shortness of breath. COMPARISON: Chest x-ray 02/28/2017. EXAM PARAMETERS: NUMBER OF VIEWS: One view. TECHNIQUE: Single frontal radiographic view of the chest acquired. RADIATION DOSE: NA LIMITATIONS: None. FINDINGS: LUNGS AND PLEURA: Airspace opacity noted at the right lung base. No sizable pleural effus ion or pneumothorax. MEDIASTINUM AND HILAR STRUCTURES: No masses. Contour normal. HEART AND VASCULAR STRUCTURES: Heart normal in size. Normal vasculature. BONES: No acute findings. HARDWARE: None in the chest. IMPRESSION: Airspace opacity at the right lung base, may be secondary to atelectasis or pneumonia. TECHNICAL DOCUMENTATION: JOB ID: [id number] [employer]- All Rights Reserved
[2017-03-14 17:40] LABS: A TYPE INFLUENZA AG NEGATIVE (NEGATIVE); B INFLUENZA AG NEGATIVE (NEGATIVE)
[2017-03-14] MEDS ORDERED: ALBUTEROL SULFATE 0.083% NEB 2.5 MG/3 ML AMPUL NEB PRN (17:53)
[2017-03-14] MEDS ORDERED: ONDANSETRON HCL INJ/PF 4 MG/2 ML SDV IV PRN (17:53)
[2017-03-14] MEDS ORDERED: ACETAMINOPHEN 325 MG TABLET PO PRN (17:53)
[2017-03-14] MEDS ORDERED: LEVOFLOXACIN 750 MG/D5W RTU 750 MG/150 ML RTUPB IV ONE (17:53)
[2017-03-14] MEDS ORDERED: OXYCODONE-ACETAMINOPHEN 5-325 MG TABLET PO PRN (17:53)
[2017-03-14] MEDS ORDERED: ZOLPIDEM TARTRATE 5 MG TABLET PO PRN (17:53)
[2017-03-14] MEDS ORDERED: IPRATROPIUM/ALBUTEROL 0.5-2.5 MG/3 ML AMPUL NEB ONE (17:59)
[2017-03-14] MEDS: MAGNESIUM SULFATE/D5W 1 GM/100 ML RTUPB IV SCH ×2 (18:34→18:42)
--- NOTE | 2017-03-14 18:41 | PDOC H&P ---
History of Present Illness Admission Date/PCP: 03/14/17 18:03 Patient complains of: Shortness of breath since yesterday History of Present Illness: YARELI LIMON III is a 66 year old maleArrived to ED via private vehicle complaining of shortness of breath. Patient states that he had a pacemaker placement on Wednesday and he was advised that if he had any concerns about his health to go immediately to emergency room. Since he had been short of breath since yesterday prompted to come to emergency room for further evaluation. Patient denies any fever or chills. Patient refers that he has been having dry mouth for the past 6-7 days. He keeps nose congestion. Patient complains of having swelling of both of his legs but the right one is worse than the left one. Accordingly had been going on for a while but worse this past week. He admits that he thinks he has a history of COPD since he used to be a smoker. He had been tested for sleep apnea but is not currently using any CPAP.On arrival to emergency room pulse ox was 88% and patient was placed on 2 L O2 by nasal cannula. X-ray obtained raised the concern about the possibility of a pneumonia versus atelectasis. Our service was consulted and prompted to admit for further management Past Medical History Cardiac Medical History: Reports: Atrial Fibrillation, Hypertension Denies: DVT Pulmonary Medical History: Reports: Chronic Obstructive Pulmonary Disease (COPD) , Sleep Apnea EENT Medical History: Reports: None Neurological Medical History: Reports: None, Seizures Endocrine Medical History: Reports: None Renal/ Medical History: Reports: None Malignancy Medical History: Reports: None GI Medical History: Reports: None Musculoskeltal Medical History: Reports: None Skin Medical History: Reports: None Psychiatric Medical History: Reports: None Traumatic Medical History: Reports: None Hematology: Reports: Other - chronic anticoagulation Infectious Medical History: Reports: None Past Surgical History Past Surgical History: Reports: Pacemaker, Other - brain surgery Social History Smoking Status: Former Smoker Frequency of Alcohol Use: None Hx Recreational Drug Use: No Drugs: None Hx Prescription Drug Abuse: No - Advance Directive Resuscitation Status: Full Code Family History Family History: Reviewed & Not Pertinent Parental Family History Reviewed: Yes Children Family History Reviewed: Yes Sibling(s) Family History Reviewed.: Yes - Patient denies any medical illnesses in his family Medication/Allergy Home Medications: Diltiazem HCl [Diltiazem ER] 180 mg PO DAILY 02/28/17 Rivaroxaban [Xarelto] 20 mg PO QPM 02/28/17 Allergies/Adverse Reactions: Penicillins Allergy (Verified 03/14/17 16:30) "cholesterol medicines" Allergy (Uncoded 03/14/17 16:30) Review of Systems Constitutional: PRESENT: fatigue, weight gain. ABSENT: night sweats Eyes: ABSENT: visual disturbances Ears: ABSENT: hearing changes Nose, Mouth, and Throat: ABSENT: mouth pain, sore throat Cardiovascular: PRESENT: edema, orthropnea. ABSENT: chest pain Respiratory: PRESENT: dyspnea Gastrointestinal: PRESENT: abdominal pain, nausea Genitourinary: ABSENT: dysuria, hematuria Musculoskeletal: PRESENT: other - swelling of legs Neurological: PRESENT: dizziness Physical Exam Vital Signs: Temp Pulse Resp BP Pulse Ox 98.7 F 101 H 24 H 130/87 H 94 03/14/17 16:36 03/14/17 16:36 03/14/17 17:27 03/14/17 17:27 03/14/17 17:27 General appearance: PRESENT: no acute distress, cooperative, morbidly obese Head exam: PRESENT: atraumatic, normocephalic Eye exam: PRESENT: conjunctiva pink, EOMI, PERRLA Ear exam: PRESENT: normal external ear exam, TM's normal bilaterally Mouth exam: PRESENT: moist, neck supple Neck exam: PRESENT: full ROM. ABSENT: JVD, lymphadenopathy, tenderness Respiratory exam: PRESENT: crackles - Mild left-sided crackles., decreased breath sounds Cardiovascular exam: PRESENT: irregular rhythm. ABSENT: diastolic murmur, systolic murmur Vascular exam: PRESENT: normal capillary refill GI/Abdominal exam: PRESENT: distended, normal bowel sounds, soft. ABSENT: tenderness Extremities exam: PRESENT: other - 4+ pitting edema`. ABSENT: clubbing, tenderness Musculoskeletal exam: PRESENT: ambulatory, full ROM Neurological exam: PRESENT: alert, awake, oriented to person, oriented to time, oriented to situation, CN II-XII grossly intact Psychiatric exam: PRESENT: appropriate affect, normal mood Skin exam: PRESENT: intact, normal color Results Impressions: Chest X-Ray 03/14/17 16:45 IMPRESSION: Airspace opacity at the right lung base, may be secondary to atelectasis or pneumonia. Assessment & Plan - Diagnosis (1) Acute respiratory failure with hypoxemia Is this a current diagnosis for this admission?: Yes Plan: Continue oxygen supplementation and will wean off as tolerated. Patient will be placed on CPAP (2) COPD (chronic obstructive pulmonary disease) Qualifiers: COPD type: unspecified COPD Qualified Code(s): J44.9 - Chronic obstructive pulmonary disease, unspecified Is this a current diagnosis for this admission?: Yes Plan: I do not think is having an exacerbation but will place patient on DuoNeb's (3) Anasarca Is this a current diagnosis for this admission?: Yes Plan: Patient will be placed on Lasix IV and CPAP. Likely culprit for sleep apnea will order echocardiogram (4) Atrial fibrillation Qualifiers: Atrial fibrillation type: paroxysmal Qualified Code(s): I48.0 - Paroxysmal atrial fibrillation Is this a current diagnosis for this admission?: Yes Plan: At the present time he is paced. Will continue Toprol XL and Cardizem (5) Status post cardiac pacemaker procedure Is this a current diagnosis for this admission?: Yes Plan: Stable (6) Chronic anticoagulation Is this a current diagnosis for this admission?: Yes Plan: Continue Xarelto as outpatient (7) Morbid obesity with BMI of 50.0-59.9, adult Is this a current diagnosis for this admission?: Yes Plan: Patient made aware that weight is putting a lot of stress both in his lungs and heart and would benefit from losing weight (8) HTN (hypertension) Qualifiers: Hypertension type: essential hypertension Qualified Code(s): I10 - Essential (primary) hypertension Is this a current diagnosis for this admission?: Yes Plan: Continue outpatient regimen (9) PNA (pneumonia) Qualifiers: Pneumonia type: due to unspecified organism Laterality: left Is this a current diagnosis for this admission?: Yes Plan: Likely presentation relates to atelectasis but for now will place on Zithromax and incentive spirometry. Will follow up response - Time Time Spent: 50 to 70 Minutes Medications reviewed and adjusted accordingly: Yes Anticipated discharge: Home with Homehealth Within: within 72 hours - Inpatient Certification Based on my medical assessment, after consideration of the patient's comorbidities, presenting symptoms, or acuity I expect that the services needed warrant INPATIENT care.: Yes I certify that my determination is in accordance with my understanding of Medicare's requirements for reasonable and necessary INPATIENT services [42 CFR 412.3e].: Yes Medical Necessity: Need Close Monitoring Due to Risk of Patient Decompensation - IV Lasix, Need For Continuous Telemetry Monitoring
[2017-03-14] MEDS: FUROSEMIDE INJ/PF 20 MG/2 ML SDV IV SCH (19:02)
[2017-03-14] MEDS: GUAIFENESIN 600 MG TABLET.SA PO SCH (19:02)
[2017-03-14] MEDS: IPRATROPIUM/ALBUTEROL 0.5-2.5 MG/3 ML AMPUL NEB SCH (19:41)
[2017-03-14] MEDS: HEPARIN SOD (PORCINE) 5,000 UNIT/ML 1 ML SYRINGE SUBCUT SCH (22:48)
[2017-03-14] MEDS: NORMAL SALINE 1000 ML 1,000 ML IV PRN (22:50)
--- NOTE | 2017-03-15 01:31 | EKG REPORT ---
SEVERITY:- ABNORMAL ECG - ATRIAL-SENSED VENTRICULAR-PACED COMPLEXES NONSPECIFIC IVCD WITH LAD : Confirmed by: Amara Handy MD 15-Mar-2017 01:30:58
[2017-03-15] MEDS: HEPARIN SOD (PORCINE) 5,000 UNIT/ML 1 ML SYRINGE SUBCUT SCH ×3 (06:12→23:10)
[2017-03-15] MEDS: NORMAL SALINE 1000 ML 1,000 ML IV PRN (06:12)
[2017-03-15] MEDS: FUROSEMIDE INJ/PF 20 MG/2 ML SDV IV SCH ×2 (06:12→18:00)
[2017-03-15] MEDS: IPRATROPIUM/ALBUTEROL 0.5-2.5 MG/3 ML AMPUL NEB SCH ×3 (07:43→21:09)
[2017-03-15 07:45] LABS: ABSOLUTE BASOPHILS # (AUTO) 0.1 10^3/uL (0.0-0.2); ABSOLUTE EOSINOPHILS # (AUTO) 0.3 10^3/uL (0.0-0.6); ABSOLUTE LYMPHOCYTES (AUTO) 0.9 10^3/uL (0.5-4.7); ABSOLUTE MONOCYTES (AUTO) 0.7 10^3/uL (0.1-1.4); ABSOLUTE NEUT (AUTO) 5.4 10^3/uL (1.7-8.2); BASOPHILS % (AUTO) 0.7 % (0-2); EOSINOPHILS % (AUTO) 4.2 % (0-6); HEMATOCRIT 40.3 % (37.9-51.0); HEMOGLOBIN 13.4 g/dL (13.5-17.0); LYMPHOCYTES % (AUTO) 12.6 % (13-45); MEAN CORPUSCULAR HGB CONC 33.3 g/dL (32.0-36.0); MEAN CORPUSCULAR VOLUME 87 fl (80-97); MONOCYTES % (AUTO) 9.6 % (3-13); PLATELET COUNT 198 10^3/uL (150-450); RED BLOOD COUNT 4.62 10^6/uL (4.35-5.55); SEGMENTED NEUTROPHILS % (AUTO) 72.9 % (42-78); TOTAL CELLS COUNTED % (AUTO) 100 %; WHITE BLOOD COUNT 7.4 10^3/uL (4.0-10.5)
[2017-03-15 08:06] LABS: ANION GAP 8 (5-19); BLOOD UREA NITROGEN 12 mg/dL (7-20); CARBON DIOXIDE 31 mmol/L (22-30); CHLORIDE 101 mmol/L (98-107); GLUCOSE 103 mg/dL (75-110); POTASSIUM 4.2 mmol/L (3.6-5.0); SODIUM 140.1 mmol/L (137-145)
[2017-03-15] MEDS: GUAIFENESIN 600 MG TABLET.SA PO SCH ×2 (11:08→18:22)
[2017-03-15] MEDS: DILTIAZEM HCL 240 MG CAPSULE.CR PO SCH (11:08)
[2017-03-15] MEDS: DOCUSATE SODIUM 100 MG CAPSULE PO SCH (11:08)
[2017-03-15] MEDS: ASPIRIN 81 MG TABLET, ENT COATED PO SCH (11:09)
[2017-03-15] MEDS: METOPROLOL SUCCINATE 50 MG TAB.SR.24H PO SCH (11:09)
[2017-03-15] MEDS: LISINOPRIL 10 MG TABLET PO SCH (11:09)
[2017-03-15] MEDS: AZITHROMYCIN 250 MG TABLET PO SCH (11:11)
--- NOTE | 2017-03-15 12:42 | PDOC PROGRESS REPORT ---
Subjective Progress Note for:: 03/15/17 Subjective:: Patient complains that he does not like the food in this hospital because he does not have any salt. Had lengthy conversation with patient about limiting salt intake and losing weight. Otherwise patient states that his breathing is better Review of system All organ systems evaluated and negative except as in subjective All significant diagnostics and laboratories have been reviewed Reason For Visit: ACUTE RESPIRATORY FAILURE, ANASARCA, COPD Physical Exam Vital Signs: Temp Pulse Resp BP Pulse Ox 98.3 F 86 18 128/71 H 96 03/15/17 03:40 03/15/17 03:40 03/15/17 03:40 03/15/17 03:40 03/15/17 03:40 Intake & Output 03/14/17 03/15/17 03/16/17 06:59 06:59 06:59 Intake Total 322 Output Total 800 Balance -478 Weight 152.2 kg General appearance: PRESENT: no acute distress, cooperative, morbidly obese Head exam: PRESENT: atraumatic, normocephalic Eye exam: PRESENT: EOMI, PERRLA Ear exam: PRESENT: normal external ear exam Mouth exam: PRESENT: moist, neck supple Neck exam: PRESENT: full ROM. ABSENT: JVD, lymphadenopathy Respiratory exam: PRESENT: clear to auscultation tami. ABSENT: tachypnea, unlabored, wheezes Cardiovascular exam: PRESENT: RRR. ABSENT: diastolic murmur, systolic murmur Vascular exam: PRESENT: normal capillary refill GI/Abdominal exam: PRESENT: normal bowel sounds, soft. ABSENT: tenderness Extremities exam: PRESENT: full ROM, other - $+ edema. ABSENT: clubbing Musculoskeletal exam: PRESENT: ambulatory Neurological exam: PRESENT: alert, awake, oriented to person, oriented to place , oriented to time, oriented to situation, CN II-XII grossly intact Psychiatric exam: PRESENT: appropriate affect, normal mood Skin exam: PRESENT: intact, normal color Results Impressions: Chest X-Ray 03/14/17 16:45 IMPRESSION: Airspace opacity at the right lung base, may be secondary to atelectasis or pneumonia. Assessment & Plan - Diagnosis (1) Acute respiratory failure with hypoxemia Is this a current diagnosis for this admission?: Yes Plan: Continue oxygen supplementation and wean off as tolerated. Continue CPAP at bedtime (2) COPD (chronic obstructive pulmonary disease) Qualifiers: COPD type: unspecified COPD Qualified Code(s): J44.9 - Chronic obstructive pulmonary disease, unspecified Is this a current diagnosis for this admission?: Yes Plan: Continue DuoNeb's (3) Anasarca Is this a current diagnosis for this admission?: Yes Plan: Continue CPAP and Lasix IV. Echocardiogram ordered (4) Atrial fibrillation Qualifiers: Atrial fibrillation type: paroxysmal Qualified Code(s): I48.0 - Paroxysmal atrial fibrillation Is this a current diagnosis for this admission?: Yes Plan: At the present time he is paced. Continue Toprol XL and Cardizem. (5) Status post cardiac pacemaker procedure Is this a current diagnosis for this admission?: Yes Plan: Stable (6) Chronic anticoagulation Is this a current diagnosis for this admission?: Yes Plan: Continue Xarelto as outpatient (7) Morbid obesity with BMI of 50.0-59.9, adult Is this a current diagnosis for this admission?: Yes Plan: Patient made aware that weight is putting a lot of stress both in his lungs and heart and would benefit from losing weight (8) HTN (hypertension) Qualifiers: Hypertension type: essential hypertension Qualified Code(s): I10 - Essential (primary) hypertension Is this a current diagnosis for this admission?: Yes Plan: Continue outpatient regimen. May need further adjustment (9) PNA (pneumonia) Qualifiers: Pneumonia type: due to unspecified organism Laterality: left Is this a current diagnosis for this admission?: Yes Plan: Likely presentation relates to atelectasis. Will continue on Zithromax and incentive spirometry. To repeat cxr to evaluate for resolution of infiltrate. - Time Time Spent with patient: 15-24 minutes Medications reviewed and adjusted accordingly: Yes Anticipated discharge: Home Within: within 72 hours - Inpatient Certification Based on my medical assessment, after consideration of the patient's comorbidities, presenting symptoms, or acuity I expect that the services needed warrant INPATIENT care.: Yes I certify that my determination is in accordance with my understanding of Medicare's requirements for reasonable and necessary INPATIENT services [42 CFR 412.3e].: Yes Medical Necessity: Need For Continuous Telemetry Monitoring - IV diuresis
[2017-03-15] MEDS ORDERED: ZOLPIDEM TARTRATE 5 MG TABLET PO PRN (13:00)
[2017-03-15] MEDS: RIVAROXABAN 10 MG TABLET PO SCH (18:01)
--- NOTE | 2017-03-15 18:09 | XCELERA REPORT ---
[address] [address] Transthoracic Echocardiogram Report Name: YARELI LIMON III Age: 66 yrs Gender: Male : 1950 Patient Status: Inpatient Patient Location: [address] [place] [address] Study Date: 03/15/2017 08:55 AM Height: 67 in Weight: 330 lb BSA: 2.5 m2 Procedure: A complete two-dimensional transthoracic echocardiogram was performed (2D, M-mode, spectral and color flow Doppler). The study was technically difficult with many images being suboptimal in quality. Reason For Study: anasarca Ordering Physician: MERY WHITE Performed By: Ju Carmona Interpretation Summary The study was technically difficult with many images being suboptimal in quality. The left ventricle is grossly normal size. There is borderline concentric left ventricular hypertrophy. Left ventricular systolic function is low normal. LV diastolic function could not be adequately assessed. Not all wall segments were well visualized. Wall motion cannot be accurately commented on, but no definite regional wall motion abnormalities noted. The right ventricle is mildly dilated. The right atrium is moderately dilated. The left atrium is mildly dilated. There is a trace amount of mitral regurgitation There is no mitral valve stenosis. There is no aortic valve stenosis No aortic regurgitation is present. There is a trace or physiologic amount of tricuspid regurgitation Tricuspid regurgitation jet envelope not well defined to measure RV systolic pressure accurately. The aortic root is not well visualized. The inferior vena cava appeared normal and decreased > 50% with respiration (RAP 5-10 mmHg) There is no pericardial effusion. MMode/2D Measurements & Calculations RVDd: 3.6 cm LVIDd: 5.1 cm FS: 38.3 % Ao root diam: 3.3 cm IVSd: 1.0 cm LVIDs: 3.2 cm EDV(Teich): 125.9 ml LVPWd: 1.0 cm ESV(Teich): 40.1 ml Ao root area: 8.8 cm2 EF(Teich): 68.2 % Doppler Measurements & Calculations MV E max aniceto: MV dec slope: Ao V2 max: LV V1 max P.3 cm/sec 146.6 cm/sec 6.6 mmHg MV A max aniceto: 667.5 cm/sec2 Ao max PG: LV V1 max: 61.2 cm/sec MV dec time: 8.6 mmHg 128.4 cm/sec MV E/A: 1.7 0.15 sec PA V2 max: TR max aniceto: 89.1 cm/sec 198.2 cm/sec PA max P.2 mmHgTR max P.7 mmHg Left Ventricle The left ventricle is grossly normal size. There is borderline concentric left ventricular hypertrophy. Left ventricular systolic function is low normal. LV diastolic function could not be adequately assessed. Not all wall segments were well visualized. Wall motion cannot be accurately commented on, but no definite regional wall motion abnormalities noted. Right Ventricle The right ventricle is mildly dilated. There is normal right ventricular wall thickness. The right ventricular systolic function is normal. Atria The right atrium is moderately dilated. The left atrium is mildly dilated. Interarterial septum not well visualized and not well dopplered. Cannot comment on ASD/PFO presence. Mitral Valve The mitral valve is grossly normal. There is no mitral valve stenosis. There is a trace amount of mitral regurgitation. Aortic Valve The aortic valve is grossly normal. There is no aortic valve stenosis. No aortic regurgitation is present. Tricuspid Valve The tricuspid valve is not well visualized, but is grossly normal. There is no tricuspid stenosis. There is a trace or physiologic amount of tricuspid regurgitation. Tricuspid regurgitation jet envelope not well defined to measure RV systolic pressure accurately. Pulmonic Valve The pulmonic valve is not well visualized. Great Vessels The aortic root is not well visualized. The inferior vena cava appeared normal and decreased > 50% with respiration (RAP 5-10 mmHg). Effusions There is no pericardial effusion. : MERY WHITE > Nona Burris
[2017-03-16] MEDS: FUROSEMIDE INJ/PF 20 MG/2 ML SDV IV SCH ×2 (05:37→18:26)
[2017-03-16] MEDS: HEPARIN SOD (PORCINE) 5,000 UNIT/ML 1 ML SYRINGE SUBCUT SCH ×3 (05:37→22:45)
[2017-03-16] MEDS: IPRATROPIUM/ALBUTEROL 0.5-2.5 MG/3 ML AMPUL NEB SCH ×3 (07:30→19:56)
--- NOTE | 2017-03-16 08:16 | RADIOLOGY REPORT (SQ) ---
EXAM DESCRIPTION: CHEST PA/LAT COMPLETED DATE/TIME: 03/16/2017 7:55 am REASON FOR STUDY: follow up COMPARISON: 02/28/2017. EXAM PARAMETERS: NUMBER OF VIEWS: two views TECHNIQUE: Digital Frontal and Lateral radiographic views of the chest acquired. RADIATION DOSE: NA LIMITATIONS: none FINDINGS: LUNGS AND PLEURA: No significant change in chronic pleuroparenchymal changes at left lung base. Chronic right pleural thickening. Calcified granulomata right upper lobe. MEDIASTINUM AND HILAR STRUCTURES: No masses or contour abnormalities. HEART AND VASCULAR STRUCTURES: Heart normal size. No evidence for failure. BONES: Dorsal spondylosis. HARDWARE: None in the chest. OTHER: No other significant finding. IMPRESSION: Chronic pleuroparenchymal changes at left lung base with left pleural thickening. Old g ranulomatous disease. No significant interval change. TECHNICAL DOCUMENTATION: JOB ID: [id number] [id number] 2010 [employer]- All Rights Reserved
[2017-03-16] MEDS: GUAIFENESIN 600 MG TABLET.SA PO SCH ×2 (11:23→18:25)
[2017-03-16] MEDS: AZITHROMYCIN 250 MG TABLET PO SCH (11:24)
[2017-03-16] MEDS: METOPROLOL SUCCINATE 50 MG TAB.SR.24H PO SCH (11:25)
[2017-03-16] MEDS: ASPIRIN 81 MG TABLET, ENT COATED PO SCH (11:26)
[2017-03-16] MEDS: LISINOPRIL 10 MG TABLET PO SCH (11:26)
[2017-03-16] MEDS: DOCUSATE SODIUM 100 MG CAPSULE PO SCH (11:27)
[2017-03-16] MEDS: DILTIAZEM HCL 240 MG CAPSULE.CR PO SCH (11:27)
--- NOTE | 2017-03-16 13:04 | PDOC PROGRESS REPORT ---
Subjective Progress Note for:: 03/16/17 Subjective:: Patient states that he is breathing better He has no chest pain At times he is tachycardic over 100 Most times he is in a paced rhythm He has no fever no chills no pleuritic chest pain Reason For Visit: ACUTE RESPIRATORY FAILURE, ANASARCA, COPD Physical Exam Vital Signs: Temp Pulse Resp BP Pulse Ox 97.9 F 75 19 124/86 H 99 03/16/17 07:38 03/16/17 07:38 03/16/17 07:38 03/16/17 07:38 03/16/17 07:38 Intake & Output 03/15/17 03/16/17 03/17/17 00:59 00:59 00:59 Intake Total 864 665 Output Total 800 900 Balance -800 864 -235 Weight 152.2 kg 146 kg General appearance: PRESENT: no acute distress, obese Head exam: PRESENT: atraumatic, normocephalic Eye exam: PRESENT: conjunctiva pink, EOMI, PERRLA. ABSENT: scleral icterus Respiratory exam: PRESENT: decreased breath sounds. ABSENT: accessory muscle use, rales, retraction, tachypnea, wheezes Cardiovascular exam: PRESENT: bradycardia Vascular exam: PRESENT: normal capillary refill GI/Abdominal exam: PRESENT: normal bowel sounds, soft. ABSENT: distended, guarding, mass, organolmegaly, rebound, tenderness Extremities exam: PRESENT: +1 edema Neurological exam: PRESENT: alert, awake, oriented to person, oriented to place , oriented to time, oriented to situation, CN II-XII grossly intact. ABSENT: motor sensory deficit Results Laboratory Results: 03/15/17 06:18 03/15/17 06:18 Impressions: Chest X-Ray 03/16/17 00:00 IMPRESSION: Chronic pleuroparenchymal changes at left lung base with left pleural thickening. Old granulomatous disease. No significant interval change. Assessment & Plan - Diagnosis (1) Atrial fibrillation Qualifiers: Atrial fibrillation type: chronic Qualified Code(s): I48.2 - Chronic atrial fibrillation Is this a current diagnosis for this admission?: Yes (2) COPD (chronic obstructive pulmonary disease) Qualifiers: COPD type: unspecified COPD Qualified Code(s): J44.9 - Chronic obstructive pulmonary disease, unspecified Is this a current diagnosis for this admission?: Yes (3) Chronic anticoagulation Is this a current diagnosis for this admission?: Yes (4) Hypoxia Is this a current diagnosis for this admission?: Yes Plan: Hypoxemia secondary to COPD exacerbation morbid obesity obstructive sleep apnea and diastolic dysfunction Continue the present management Noted that the patient is not hypoxemic at this time that his oxygenation is adequate on room air (5) Morbid obesity with BMI of 50.0-59.9, adult Is this a current diagnosis for this admission?: Yes (6) Chronic systolic CHF (congestive heart failure) Is this a current diagnosis for this admission?: Yes Plan: Echocardiogram performed 03/15/17 showed low normal systolic function and diastolic function could not be assessed Patient likely has some degree of cardiomyopathy we will Continue diuresis with Lasix (7) Obstructive sleep apnea Is this a current diagnosis for this admission?: Yes (8) Obesity hypoventilation syndrome Is this a current diagnosis for this admission?: Yes - Time Time Spent with patient: We will continue to diurese the patient in the next 2448 hrs. We will obtain reports from sleep study Patient to be evaluated for CPAP if he did indeed qualify Time Spent with patient: 25-34 minutes
[2017-03-16] MEDS: RIVAROXABAN 10 MG TABLET PO SCH (16:41)
[2017-03-16] MEDS ORDERED: HYDROXYZINE HCL 10 MG TABLET PO PRN (16:47)
[2017-03-16] MEDS ORDERED: HYDROXYZINE PAMOATE 25 MG CAPSULE PO PRN (18:13)
--- NOTE | 2017-03-16 19:01 | EKG REPORT ---
SEVERITY:- ABNORMAL ECG - AFIB/FLUT AND V-PACED COMPLEXES BORDERLINE T ABNORMALITIES, ANT-LAT LEADS : Confirmed by: Kelechi Isbell MD 16-Mar-2017 19:00:48
[2017-03-16] MEDS ORDERED: FUROSEMIDE INJ/PF 40 MG/4 ML SDV IV SCH (22:00)
[2017-03-17] MEDS: FUROSEMIDE INJ/PF 20 MG/2 ML SDV IV SCH ×2 (05:42→19:07)
[2017-03-17] MEDS: HEPARIN SOD (PORCINE) 5,000 UNIT/ML 1 ML SYRINGE SUBCUT SCH ×3 (05:42→21:55)
[2017-03-17] MEDS: IPRATROPIUM/ALBUTEROL 0.5-2.5 MG/3 ML AMPUL NEB SCH ×3 (08:35→19:46)
[2017-03-17] MEDS: AZITHROMYCIN 250 MG TABLET PO SCH (09:37)
[2017-03-17] MEDS: GUAIFENESIN 600 MG TABLET.SA PO SCH ×2 (09:38→18:56)
[2017-03-17] MEDS: ASPIRIN 81 MG TABLET, ENT COATED PO SCH (09:38)
[2017-03-17] MEDS: LISINOPRIL 10 MG TABLET PO SCH (09:39)
[2017-03-17] MEDS: METOPROLOL SUCCINATE 50 MG TAB.SR.24H PO SCH (09:39)
[2017-03-17] MEDS: DILTIAZEM HCL 240 MG CAPSULE.CR PO SCH (09:39)
[2017-03-17] MEDS: DOCUSATE SODIUM 100 MG CAPSULE PO SCH (09:40)
[2017-03-17] MEDS: RIVAROXABAN 10 MG TABLET PO SCH (18:00)
--- NOTE | 2017-03-17 18:40 | PDOC PROGRESS REPORT ---
Subjective Progress Note for:: 03/17/17 Subjective:: Patient is feeling a lot better Breathing is improved He has diuresed a great deal Reason For Visit: ACUTE RESPIRATORY FAILURE, ANASARCA, COPD Physical Exam Vital Signs: Temp Pulse Resp BP Pulse Ox 97.6 F 86 18 94/70 L 95 03/17/17 15:59 03/17/17 15:59 03/17/17 15:59 03/17/17 15:59 03/17/17 15:59 Intake & Output 03/16/17 03/17/17 03/18/17 00:59 00:59 00:59 Intake Total 864 1725 582 Output Total 2225 1100 Balance 864 500 518 Weight 152.2 kg 146 kg 146 kg General appearance: PRESENT: no acute distress, obese Head exam: PRESENT: atraumatic, normocephalic Eye exam: PRESENT: conjunctiva pink, EOMI, PERRLA. ABSENT: scleral icterus Respiratory exam: PRESENT: decreased breath sounds. ABSENT: accessory muscle use, rales, retraction, tachypnea, wheezes Cardiovascular exam: PRESENT: bradycardia Vascular exam: PRESENT: normal capillary refill GI/Abdominal exam: PRESENT: normal bowel sounds, soft. ABSENT: distended, guarding, mass, organolmegaly, rebound, tenderness Extremities exam: PRESENT: +1 edema Neurological exam: PRESENT: alert, awake, oriented to person, oriented to place , oriented to time, oriented to situation, CN II-XII grossly intact. ABSENT: motor sensory deficit Results Laboratory Results: 03/15/17 06:18 03/15/17 06:18 Impressions: Chest X-Ray 03/16/17 00:00 IMPRESSION: Chronic pleuroparenchymal changes at left lung base with left pleural thickening. Old granulomatous disease. No significant interval change. Assessment & Plan - Diagnosis (1) Atrial fibrillation Qualifiers: Atrial fibrillation type: chronic Qualified Code(s): I48.2 - Chronic atrial fibrillation Is this a current diagnosis for this admission?: Yes (2) COPD (chronic obstructive pulmonary disease) Qualifiers: COPD type: unspecified COPD Qualified Code(s): J44.9 - Chronic obstructive pulmonary disease, unspecified Is this a current diagnosis for this admission?: Yes (3) Chronic anticoagulation Is this a current diagnosis for this admission?: Yes (4) Hypoxia Is this a current diagnosis for this admission?: Yes Plan: Hypoxemia secondary to COPD exacerbation morbid obesity obstructive sleep apnea and diastolic dysfunction Continue the present management Noted that the patient is not hypoxemic at this time that his oxygenation is adequate on room air (5) Morbid obesity with BMI of 50.0-59.9, adult Is this a current diagnosis for this admission?: Yes (6) Chronic systolic CHF (congestive heart failure) Is this a current diagnosis for this admission?: Yes Plan: Echocardiogram performed 03/15/17 showed low normal systolic function and diastolic function could not be assessed Patient likely has some degree of cardiomyopathy we will Continue diuresis with Lasix (7) Obstructive sleep apnea Is this a current diagnosis for this admission?: Yes (8) Obesity hypoventilation syndrome Is this a current diagnosis for this admission?: Yes - Time Time Spent with patient: Continue continue present management will likely discharge the patient in a.m. Time Spent with patient: 25-34 minutes
[2017-03-17] MEDS ORDERED: HYDROCORTISONE 1% CREAM 28.35 GM TP SCH (20:00)
[2017-03-17] MEDS: CLOTRIMAZOLE 1% CREAM 15 GM TP SCH (21:55)
[2017-03-17] MEDS: HYDROCORTISONE 1% OINTMENT 28.35 GM TP SCH (21:55)
[2017-03-18] MEDS: FUROSEMIDE INJ/PF 20 MG/2 ML SDV IV SCH ×2 (05:23→17:26)
[2017-03-18] MEDS: HEPARIN SOD (PORCINE) 5,000 UNIT/ML 1 ML SYRINGE SUBCUT SCH ×2 (05:24→15:13)
[2017-03-18 05:48] LABS: ANION GAP 10 (5-19); BLOOD UREA NITROGEN 17 mg/dL (7-20); CALCIUM 9.7 mg/dL (8.4-10.2); CARBON DIOXIDE 29 mmol/L (22-30); CHLORIDE 99 mmol/L (98-107); GLUCOSE 103 mg/dL (75-110); POTASSIUM 4.1 mmol/L (3.6-5.0); SODIUM 138.2 mmol/L (137-145)
[2017-03-18] MEDS ORDERED: METOPROLOL TARTRATE PF/INJ 5 MG/5 ML SDV IV ONE ×2 (07:52→08:30)
[2017-03-18] MEDS ORDERED: METOPROLOL SUCCINATE 50 MG TAB.SR.24H PO ONE (08:30)
[2017-03-18] MEDS: IPRATROPIUM/ALBUTEROL 0.5-2.5 MG/3 ML AMPUL NEB SCH ×3 (08:47→20:25)
[2017-03-18] MEDS: LISINOPRIL 10 MG TABLET PO SCH (09:53)
[2017-03-18] MEDS: AZITHROMYCIN 250 MG TABLET PO SCH (09:54)
[2017-03-18] MEDS: ASPIRIN 81 MG TABLET, ENT COATED PO SCH (09:54)
[2017-03-18] MEDS: DILTIAZEM HCL 240 MG CAPSULE.CR PO SCH (09:55)
[2017-03-18] MEDS: GUAIFENESIN 600 MG TABLET.SA PO SCH ×2 (09:55→17:25)
[2017-03-18] MEDS: CLOTRIMAZOLE 1% CREAM 15 GM TP SCH ×2 (09:56→21:05)
[2017-03-18] MEDS: DOCUSATE SODIUM 100 MG CAPSULE PO SCH (09:56)
--- NOTE | 2017-03-18 11:28 | EKG REPORT ---
SEVERITY:- ABNORMAL ECG - ATRIAL-SENSED VENTRICULAR-PACED COMPLEXES : Confirmed on behalf of: Kelechi Isbell MD 18-Mar-2017 11:28:19
--- NOTE | 2017-03-18 16:23 | PDOC PROGRESS REPORT ---
Subjective Progress Note for:: 03/18/17 Subjective:: Patient has no complaints actually he feels a lot better but on the monitor at times patient's heart rate is uncontrolled He is in A. fib at a rate of 130-150 when he ambulates He has no chest pain No shortness of breath the edema is resolving Reason For Visit: ACUTE RESPIRATORY FAILURE, ANASARCA, COPD Physical Exam Vital Signs: Temp Pulse Resp BP Pulse Ox 97.5 F 104 H 20 113/75 92 03/18/17 11:30 03/18/17 14:00 03/18/17 14:00 03/18/17 11:30 03/18/17 11:30 Intake & Output 03/17/17 03/18/17 03/19/17 00:59 00:59 00:59 Intake Total 1725 829 Output Total 2225 1400 Balance -500 -571 Weight 146 kg 146 kg 146 kg General appearance: PRESENT: no acute distress, obese Head exam: PRESENT: atraumatic, normocephalic Eye exam: PRESENT: conjunctiva pink, EOMI, PERRLA. ABSENT: scleral icterus Respiratory exam: PRESENT: decreased breath sounds. ABSENT: accessory muscle use, rales, retraction, tachypnea, wheezes Cardiovascular exam: PRESENT: bradycardia Vascular exam: PRESENT: normal capillary refill GI/Abdominal exam: PRESENT: normal bowel sounds, soft. ABSENT: distended, guarding, mass, organolmegaly, rebound, tenderness Extremities exam: PRESENT: +1 edema Neurological exam: PRESENT: alert, awake, oriented to person, oriented to place , oriented to time, oriented to situation, CN II-XII grossly intact. ABSENT: motor sensory deficit Results Laboratory Results: 03/15/17 06:18 03/18/17 04:08 03/18/17 04:08 Sodium 138.2 Potassium 4.1 Chloride 99 Carbon Dioxide 29 Anion Gap 10 BUN 17 Creatinine 0.89 Est GFR ( Amer) > 60 Est GFR (Non-Af Amer) > 60 Glucose 103 Calcium 9.7 Impressions: Chest X-Ray 03/16/17 00:00 IMPRESSION: Chronic pleuroparenchymal changes at left lung base with left pleural thickening. Old granulomatous disease. No significant interval change. Assessment & Plan - Diagnosis (1) Atrial fibrillation Qualifiers: Atrial fibrillation type: chronic Qualified Code(s): I48.2 - Chronic atrial fibrillation Is this a current diagnosis for this admission?: Yes Plan: A. fib with rapid ventricular rate at times overriding the pacemaker We have increased metoprolol We will consult Dr. Burris before discharging him home (2) COPD (chronic obstructive pulmonary disease) Qualifiers: COPD type: unspecified COPD Qualified Code(s): J44.9 - Chronic obstructive pulmonary disease, unspecified Is this a current diagnosis for this admission?: Yes (3) Chronic anticoagulation Is this a current diagnosis for this admission?: Yes (4) Hypoxia Is this a current diagnosis for this admission?: Yes (5) Morbid obesity with BMI of 50.0-59.9, adult Is this a current diagnosis for this admission?: Yes (6) Chronic systolic CHF (congestive heart failure) Is this a current diagnosis for this admission?: Yes (7) Obstructive sleep apnea Is this a current diagnosis for this admission?: Yes (8) Obesity hypoventilation syndrome Is this a current diagnosis for this admission?: Yes - Time Time Spent with patient: 25-34 minutes
[2017-03-18] MEDS: RIVAROXABAN 10 MG TABLET PO SCH (17:25)
--- NOTE | 2017-03-18 20:08 | PDOC CONSULTATION ---
Consultation Consult Date: 03/18/17 Attending physician:: FREDI JIMENEZ Consult reason:: Shortness of breath and CHF, atrial fibrillation History of Present Illness Admission Date/PCP: 03/14/17 18:03 Patient complains of: Shortness of breath History of Present Illness: YARELI LIMON III is a 66 year old maleArrived to ED via private vehicle complaining of shortness of breath. Patient states that he had a pacemaker placement on Wednesday and he was advised that if he had any concerns about his health to go immediately to emergency room. Since he had been short of breath since yesterday prompted to come to emergency room for further evaluation. Patient denies any fever or chills. Patient refers that he has been having dry mouth for the past 6-7 days. He keeps nose congestion. Patient complains of having swelling of both of his legs but the right one is worse than the left one. Accordingly had been going on for a while but worse this past week. He admits that he thinks he has a history of COPD since he used to be a smoker. He had been tested for sleep apnea but is not currently using any CPAP.On arrival to emergency room pulse ox was 88% and patient was placed on 2 L O2 by nasal cannula. X-ray obtained raised the concern about the possibility of a pneumonia versus atelectasis. Our service was consulted and prompted to admit for further management. This history was reviewed and confirmed. Patient claims he had a new type of pacemaker placed through his groin area. No pacemaker noted in the upper chest area. We do not have any discharge summary from [facility]. Patient also did not carry a card of any device placement. Past Medical History Cardiac Medical History: Reports: Atrial Fibrillation, Hypertension Denies: DVT Pulmonary Medical History: Reports: Chronic Obstructive Pulmonary Disease (COPD) , Sleep Apnea EENT Medical History: Reports: None, Other - chronic anticoagulation Neurological Medical History: Reports: None, Seizures Endocrine Medical History: Reports: None Renal/ Medical History: Reports: None Malignancy Medical History: Reports: None GI Medical History: Reports: None Musculoskeltal Medical History: Reports: None Skin Medical History: Reports: None Psychiatric Medical History: Reports: None Denies: Depression Traumatic Medical History: Reports: None Hematology: Reports: Other - chronic anticoagulation Infectious Medical History: Reports: None Past Surgical History Past Surgical History: Reports: Pacemaker - Pacemaker however not noted on chest x-ray., Other - brain surgery Social History Information Source: Patient Smoking Status: Former Smoker Frequency of Alcohol Use: None Hx Recreational Drug Use: No Drugs: None Hx Prescription Drug Abuse: No - Advance Directive Resuscitation Status: Full Code Surrogate healthcare decision maker:: Patient's father is the surrogate decision-maker Family History Family History: Hypertension Parental Family History Reviewed: Yes Children Family History Reviewed: Yes Sibling(s) Family History Reviewed.: Yes Medication/Allergy Home Medications: Rivaroxaban [Xarelto] 20 mg PO QPM 02/28/17 Lisinopril [Zestril] 20 mg PO DAILY 03/15/17 Diltiazem HCl [Cardizem Cd 240 mg Capsule.cr] 240 mg PO DAILY 30 Days #30 capsule.cr 03/19/17 Doxycycline Hyclate 100 mg PO BID #10 capsule 03/19/17 Furosemide [Lasix 40 mg Tablet] 40 mg PO QAM #30 tablet 03/19/17 Metoprolol Succinate [Toprol Xl 50 mg Tab.sr] 50 mg PO Q12 #60 tab.sr.24h Potassium Chloride [K-Tab ER] 20 meq PO DAILY #60 tablet.er 03/19/17 Allergies/Adverse Reactions: Penicillins Allergy (Verified 03/14/17 16:30) "cholesterol medicines" Allergy (Uncoded 03/14/17 16:30) Review of Systems Review of Systems: Please see history of present illness and past medical history as wall. Constitutional: No fever or chills reported. Head : No recent chronic headaches, recent head injury. Eyes: No recent eye pain, diplopia, redness, discharge, acute visual changes. Ears: No recent chronic ear pain, acute hearing loss, ear discharge. Oral cavity: No recent ulcerations, bleeding, oral cavity discomfort. Neck: No recent acute neck pain reported. Hematologic: No recent easy bruising or bleeding or hematologic malignancy reported. Lymphatic: No recent lymphatic malignancy, chronic lymphadenopathy reported yet Cardiovascular system review: See history of present illness. Occasional palpitations and dizziness. Respiratory system review: No recent chronic cough, hemoptysis, blood clots in the lungs reported. Significant shortness of breath on exertion Gastrointestinal system review: Negative for any recent acute or chronic abdominal pain, hematemesis, melena, recent change in bowel habits. Genitourinary system review: No recent acute or chronic hematuria, flank pain, UTI etc. reported. Skin system review: Negative for any recent abnormal bruising, no rash, no pruritus reported. Neurologic: No prior history of strokes, mini strokes, seizure disorder. Psychologic: No history of major psychosis or major depression reported. Musculoskeletal: Minor aches and pains reported. No acute joint swelling reported. Endocrine: No recent polyuria, polydipsia, recent heat or cold intolerance. Physical Exam Vital Signs: Temp Pulse Resp BP Pulse Ox 97.3 F 97 19 100/59 L 93 03/18/17 15:37 03/18/17 15:37 03/18/17 15:37 03/18/17 15:37 03/18/17 15:37 Intake & Output 03/17/17 03/18/17 03/19/17 06:59 06:59 06:59 Intake Total 1060 829 562 Output Total 1325 1400 550 Balance -265 -571 12 Weight 146 kg 146 kg Exam: GENERAL: well-nourished and in no acute distress. Alert and oriented x3 HEAD: Atraumatic, normocephalic. EYES: Pupils equal round and reactive to light, extraocular movements intact, sclera anicteric, conjunctiva are normal. ENT: TMs normal, nares patent, oropharynx clear without exudates. Moist mucous membranes. No oral ulcerations or bleeding gums noted NECK: supple without lymphadenopathy. Trachea is central. No cervical or axillary lymphadenopathy noted. Carotids are 2+, JVD difficult to evaluate due to short thick neck LUNGS: Respiration seems nonlabored, no significant accessory muscle action noted. Breath sounds clear to auscultation bilaterally and equal noted. No wheezes rales or rhonchi noted. No significant dullness noted on percussion. CHEST: Palpation of the chest wall shows no significant chest wall tenderness. No other significant abnormalities noted. HEART: [place] [employer], No PSH, 1/6 RIA aortic area, 1/6 fine systolic murmur mitral area, no rubs, no gallops. ABDOMEN: Soft, no significant tenderness appreciated, normoactive bowel sounds. No guarding, no rebound. No rigidity noted . No masses appreciated. EXTREMITIES: Pedal pulses are 1-2+, no calf tenderness noted. No clubbing or cyanosis. 2-3+ bilateral pedal edema noted NEUROLOGICAL: Focused neurological exam showed no significant neurologic deficit. Normal speech, no focal weakness appreciated. PSYCH: Normal mood, normal affect. Judgment and insight within normal limits. SKIN: No significant ecchymosis, rash, ulcerations or signs of pruritus noted. MUSCULOSKELETAL EXAM: No significant joint swelling noted. Results Laboratory Results: 03/15/17 06:18 03/18/17 04:08 03/18/17 04:08 Sodium 138.2 Potassium 4.1 Chloride 99 Carbon Dioxide 29 Anion Gap 10 BUN 17 Creatinine 0.89 Est GFR ( Amer) > 60 Est GFR (Non-Af Amer) > 60 Glucose 103 Calcium 9.7 EKG Comments: Atrial fibrillation, VPCs couplet versus ventricular paced beats Impressions: Chest X-Ray 03/16/17 00:00 IMPRESSION: Chronic pleuroparenchymal changes at left lung base with left pleural thickening. Old granulomatous disease. No significant interval change. Assessment & Plan - Diagnosis (1) Atrial fibrillation Qualifiers: Atrial fibrillation type: chronic Qualified Code(s): I48.2 - Chronic atrial fibrillation Is this a current diagnosis for this admission?: Yes (2) COPD (chronic obstructive pulmonary disease) Qualifiers: COPD type: unspecified COPD Qualified Code(s): J44.9 - Chronic obstructive pulmonary disease, unspecified Is this a current diagnosis for this admission?: Yes (3) Chronic systolic CHF (congestive heart failure) Is this a current diagnosis for this admission?: Yes (4) HTN (hypertension) Qualifiers: Hypertension type: essential hypertension Qualified Code(s): I10 - Essential (primary) hypertension Is this a current diagnosis for this admission?: Yes - Notes Notes: Atrial fibrillation: Patient currently anticoagulated. Rate seems reasonably well-controlled. Further rate control can be performed by way of event monitoring as an outpatient. Agree with increasing metoprolol succinate therapy. COPD: Continue current therapeutic regimen. CHF: Diastolic based on echocardiogram review. Continue diuretic therapy. Hypertension: Currently well controlled. I feel patient may have had a device placed in the pulmonary artery to measure wedge pressure and for volume determination rather than a pacemaker. Have asked for records to be obtained from [facility]. - Time Time Spent: 30 to 50 Minutes - CODE STATUS was discussed, patient remains full code. Surrogate decision-maker patient's father. Multiple medical problems were addressed. More than 50% of the time spent coordinating care, discussing management plans with involved caregivers. Management plans discussed with involved personnels. Medical decision making was of moderate to high complexity , patient's has multiple comorbidities. Medications reviewed and adjusted accordingly: Yes
[2017-03-18] MEDS: METOPROLOL SUCCINATE 50 MG TAB.SR.24H PO SCH (21:05)
[2017-03-18] MEDS: HYDROCORTISONE 1% OINTMENT 28.35 GM TP SCH (21:05)
[2017-03-19] MEDS: FUROSEMIDE INJ/PF 20 MG/2 ML SDV IV SCH (05:37)
[2017-03-19] MEDS: IPRATROPIUM/ALBUTEROL 0.5-2.5 MG/3 ML AMPUL NEB SCH (08:37)
--- NOTE | 2017-03-19 09:55 | PDOC DISCHARGE SUMMARY ---
General - Admit/Disc Date/PCP Admission Date/Primary Care Provider: 03/14/17 18:03 Discharge Date: 03/19/17 - Discharge Diagnosis (1) Atrial fibrillation Is this a current diagnosis for this admission?: Yes (2) COPD (chronic obstructive pulmonary disease) Is this a current diagnosis for this admission?: Yes (3) Chronic anticoagulation Is this a current diagnosis for this admission?: Yes (4) Hypoxia Is this a current diagnosis for this admission?: Yes (5) Morbid obesity with BMI of 50.0-59.9, adult Is this a current diagnosis for this admission?: Yes (6) Chronic systolic CHF (congestive heart failure) Is this a current diagnosis for this admission?: Yes (7) Obstructive sleep apnea Is this a current diagnosis for this admission?: Yes (8) Obesity hypoventilation syndrome Is this a current diagnosis for this admission?: Yes - Additional Information Resuscitation Status: Full Code Prescriptions: Diltiazem HCl [Cardizem Cd 240 mg Capsule.cr] 240 mg PO DAILY 30 Days #30 capsule.cr Doxycycline Hyclate 100 mg PO BID #10 capsule Furosemide [Lasix 40 mg Tablet] 40 mg PO QAM #30 tablet Metoprolol Succinate [Toprol Xl 50 mg Tab.sr] 50 mg PO Q12 #60 tab.sr.24h Potassium Chloride [K-Tab ER] 20 meq PO DAILY #60 tablet.er Home Medications: Rivaroxaban [Xarelto] 20 mg PO QPM 02/28/17 Lisinopril [Zestril] 20 mg PO DAILY 03/15/17 Diltiazem HCl [Cardizem Cd 240 mg Capsule.cr] 240 mg PO DAILY 30 Days #30 capsule.cr 03/19/17 Doxycycline Hyclate 100 mg PO BID #10 capsule 03/19/17 Furosemide [Lasix 40 mg Tablet] 40 mg PO QAM #30 tablet 03/19/17 Metoprolol Succinate [Toprol Xl 50 mg Tab.sr] 50 mg PO Q12 #60 tab.sr.24h Potassium Chloride [K-Tab ER] 20 meq PO DAILY #60 tablet.er 03/19/17 History of Present Illness Patient complains of: shortness of breath History of Present Illness: YARELI LIMON III is a 66 year old male Arrived to ED via private vehicle complaining of shortness of breath. Patient states that he had a pacemaker placement on Wednesday and he was advised that if he had any concerns about his health to go immediately to emergency room. Since he had been short of breath since yesterday prompted to come to emergency room for further evaluation. Patient denies any fever or chills. Patient refers that he has been having dry mouth for the past 6-7 days. He keeps nose congestion. Patient complains of having swelling of both of his legs but the right one is worse than the left one. Accordingly had been going on for a while but worse this past week. He admits that he thinks he has a history of COPD since he used to be a smoker. He had been tested for sleep apnea but is not currently using any CPAP.On arrival to emergency room pulse ox was 88% and patient was placed on 2 L O2 by nasal cannula. X-ray obtained raised the concern about the possibility of a pneumonia versus atelectasis. Our service was consulted and prompted to admit for further management Hospital Course Hospital Course: (1) Atrial fibrillation A. fib with rapid ventricular rate Medications were adjusted Cardizem was increased to 240 mg daily And patient was prescribed Toprol-XL 50 mg twice daily At discharge is rate is controlled (2) COPD (chronic obstructive pulmonary disease) Patient was thought to have COPD exacerbation ; he was continued on his prior medications Doxycycline was prescribed as discharge (3) Chronic anticoagulation We continue Xarelto (4) Hypoxia Acute on chronic respiratory failure secondary to COPD exacerbation ; acute on chronic systolic CHF and obesity hypoventilation syndrome Associated with sleep apnea Patient's oxygen requirements are decreased at discharge and his oxygen is adequate on room air (5) Morbid obesity with BMI of 50.0-59.9, adult Is this a current diagnosis for this admission?: Yes (6) acute on chronic systolic CHF (congestive heart failure) Echocardiogram was performed and it showed low normal left ventricular function Patient was diuresed with Lasix; continued on beta-blockers and lisinopril (7) Obstructive sleep apnea Patient had sleep study in the past Should be reevaluated for CPAP at home Physical Exam Vital Signs: Temp Pulse Resp BP Pulse Ox 98.2 F 55 L 16 113/74 93 03/19/17 07:49 03/19/17 07:49 03/19/17 03:20 03/19/17 07:49 03/19/17 07:49 Intake & Output 03/18/17 03/19/17 03/20/17 00:59 00:59 00:59 Intake Total 829 802 Output Total 1400 950 Balance -571 -148 Weight 146 kg 146 kg 146 kg General appearance: PRESENT: no acute distress, obese Head exam: PRESENT: atraumatic, normocephalic Eye exam: PRESENT: conjunctiva pink, EOMI, PERRLA. ABSENT: scleral icterus Respiratory exam: PRESENT: decreased breath sounds. ABSENT: accessory muscle use, rales, retraction, tachypnea, wheezes Cardiovascular exam: PRESENT: bradycardia Vascular exam: PRESENT: normal capillary refill GI/Abdominal exam: PRESENT: normal bowel sounds, soft. ABSENT: distended, guarding, mass, organolmegaly, rebound, tenderness Extremities exam: PRESENT: +1 edema Neurological exam: PRESENT: alert, awake, oriented to person, oriented to place , oriented to time, oriented to situation, CN II-XII grossly intact. ABSENT: motor sensory deficit Results Laboratory Results: 03/15/17 06:18 03/18/17 04:08 03/18/17 20:20 NT-Pro-B Natriuret Pep 321 Impressions: Chest X-Ray 03/16/17 00:00 IMPRESSION: Chronic pleuroparenchymal changes at left lung base with left pleural thickening. Old granulomatous disease. No significant interval change. Plan Discharge Plan: Discharge home follow up with the clinic in a week Follow-up with cardiology as scheduled Time Spent: Greater than 30 Minutes
[2017-03-19] MEDS: AZITHROMYCIN 250 MG TABLET PO SCH (10:15)
[2017-03-19] MEDS: ASPIRIN 81 MG TABLET, ENT COATED PO SCH (10:15)
[2017-03-19] MEDS: DOCUSATE SODIUM 100 MG CAPSULE PO SCH (10:15)
[2017-03-19] MEDS: GUAIFENESIN 600 MG TABLET.SA PO SCH (10:16)
[2017-03-19] MEDS: LISINOPRIL 10 MG TABLET PO SCH (10:16)
[2017-03-19] MEDS: CLOTRIMAZOLE 1% CREAM 15 GM TP SCH (10:16)
[2017-03-19] MEDS: DILTIAZEM HCL 240 MG CAPSULE.CR PO SCH (10:16)
[2017-03-19] MEDS: METOPROLOL SUCCINATE 50 MG TAB.SR.24H PO SCH (10:16)
[2017-03-19 10:43] VITALS: BP 137/87
--- NOTE | 2017-03-19 13:35 | PDOC PROGRESS REPORT ---
Subjective Progress Note for:: 03/19/17 Subjective:: Patient seems to be doing better with significant improvement. Pt is denying any chest arm or neck discomfort. Patient denying any PND, orthopnea. Patient denied any sustained palpitations, dizziness, syncope, near syncope. Patient denying any fever chills. Patient denying any other significant discomfort. Patient is maintaining atrial fibrillation, with intermittent rapid heartbeat. Review of systems: Rest review of systems negative. Medications: Medications have been reviewed. Reason For Visit: ACUTE RESPIRATORY FAILURE, ANASARCA, COPD Physical Exam Vital Signs: Temp Pulse Resp BP Pulse Ox 98.2 F 55 L 16 137/87 H 93 03/19/17 10:41 03/19/17 10:41 03/19/17 10:41 03/19/17 10:41 03/19/17 10:41 Intake & Output 03/18/17 03/19/17 03/20/17 06:59 06:59 06:59 Intake Total 829 802 Output Total 1400 950 Balance -571 -148 Weight 146 kg 146 kg Exam: GENERAL: well-nourished and in no acute distress. Alert and oriented x3 HEAD: Atraumatic, normocephalic. EYES: Pupils equal round and reactive to light, extraocular movements intact, sclera anicteric, conjunctiva are normal. ENT: TMs normal, nares patent, oropharynx clear without exudates. Moist mucous membranes. No oral ulcerations or bleeding gums noted NECK: supple without lymphadenopathy. Trachea is central. No cervical or axillary lymphadenopathy noted. Carotids are 2+, JVD difficult to evaluate feels not elevated LUNGS: Respiration seems nonlabored, no significant accessory muscle action noted. Breath sounds clear to auscultation bilaterally and equal noted. No wheezes rales or rhonchi noted. No significant dullness noted on percussion. CHEST: Palpation of the chest wall shows no significant chest wall tenderness. No other significant abnormalities noted. 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 ABDOMEN: Soft, no significant tenderness appreciated, normoactive bowel sounds. No guarding, no rebound. No rigidity noted . No masses appreciated. EXTREMITIES: Pedal pulses are 1-2+, no calf tenderness noted. No clubbing or cyanosis. 2 + pedal edema noted NEUROLOGICAL: Focused neurological exam showed no significant neurologic deficit. Normal speech, no focal weakness appreciated. PSYCH: Normal mood, normal affect. Judgment and insight within normal limits. SKIN: No significant ecchymosis, rash, ulcerations or signs of pruritus noted. MUSCULOSKELETAL EXAM: No significant joint swelling noted. Results Laboratory Results: 03/15/17 06:18 03/18/17 04:08 03/18/17 20:20 NT-Pro-B Natriuret Pep 321 EKG Comments: Atrial fibrillation with reasonably controlled heart rate response. No significant ventricular tachyarrhythmias noted. Impressions: Chest X-Ray 03/16/17 00:00 IMPRESSION: Chronic pleuroparenchymal changes at left lung base with left pleural thickening. Old granulomatous disease. No significant interval change. Assessment & Plan - Diagnosis (1) Atrial fibrillation Qualifiers: Atrial fibrillation type: chronic Qualified Code(s): I48.2 - Chronic atrial fibrillation Is this a current diagnosis for this admission?: Yes (2) COPD (chronic obstructive pulmonary disease) Qualifiers: COPD type: unspecified COPD Qualified Code(s): J44.9 - Chronic obstructive pulmonary disease, unspecified Is this a current diagnosis for this admission?: Yes (3) Chronic systolic CHF (congestive heart failure) Is this a current diagnosis for this admission?: Yes (4) HTN (hypertension) Qualifiers: Hypertension type: essential hypertension Qualified Code(s): I10 - Essential (primary) hypertension Is this a current diagnosis for this admission?: Yes (5) Obesity Qualifiers: Obesity type: unspecified obesity type Is this a current diagnosis for this admission?: Yes (6) Sleep apnea syndrome Qualifiers: Sleep apnea type: unspecified type Qualified Code(s): G47.30 - Sleep apnea , unspecified Is this a current diagnosis for this admission?: Yes - Notes Notes: Atrial fibrillation: Chronic. Continue chronic anticoagulation. Rate reasonably well controlled. Further adjustment can be done as an outpatient. Currently patient seems to be tolerating intermittent high rate well. 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 COPD: Currently stable. Continue current therapeutic regimen. Chronic congestive heart failure: Patient being managed by another nozzle worker. Currently symptomatically stable enough for discharge. Hypertension: Currently reasonably well controlled. Agree with increasing beta- neto dose for rate control and for control of hypertension. Obesity: Patient has been encouraged in weight loss. Sleep apnea syndrome: Patient will benefit from continued CPAP therapy. CPAP therapy has been shown to reduce CHF related hospitalization and will also reduce recurrence of atrial fibrillation should patient get cardioverted or have ablation therapy. - Time Time with patient: Greater than 35 minutes - CODE STATUS was discussed, patient remains full code. Surrogate decision-maker unchanged. Multiple medical problems were addressed. More than 50% of the time spent coordinating care, discussing management plans with involved caregivers. Management plans discussed with involved personnels. Medical decision making was of moderate to high complexity, patient's has multiple comorbidities. Significant time spent discussing management plans with the patient and what he needs to do to prevent recurrent hospitalization and regarding management of atrial fibrillation. Patient to follow-up with his primary care nozzle worker in [place]. Medications reviewed and adjusted accordingly: Yes
== END 2017-03-19 11:20 | disposition home or self-care (01) | DRG 308 ==
LOC: ER 16:30 → EH 18:03 → 5 03-15 00:50
PROVIDERS: ADMIT Family Medicine; ATTEND Family Medicine
PROC: 3E0F73Z Introduction of Anti-inflammatory into Respiratory Tract, Via Natural or Artificial Opening (ICD-10-PCS; 2017-03-14)
PROC: 5A09357 Assistance with Respiratory Ventilation, Less than 24 Consecutive Hours, Continuous Positive Airway Pressure (ICD-10-PCS; principal; 2017-03-15)
DX: I48.0 Paroxysmal atrial fibrillation (principal); J96.21 Acute and chronic respiratory failure with hypoxia; I50.23 Acute on chronic systolic (congestive) heart failure; J18.1 Lobar pneumonia, unspecified organism; Z68.43 Body mass index [BMI] 50.0-59.9, adult; E66.2 Morbid (severe) obesity with alveolar hypoventilation; J44.1 Chronic obstructive pulmonary disease with (acute) exacerbation; J44.0 Chronic obstructive pulmonary disease with (acute) lower respiratory infection; I11.0 Hypertensive heart disease with heart failure; I48.2 Chronic atrial fibrillation; Z79.01 Long term (current) use of anticoagulants; Z79.899 Other long term (current) drug therapy; Z87.891 Personal history of nicotine dependence; Z95.0 Presence of cardiac pacemaker; Z88.3 Allergy status to other anti-infective agents; Z88.0 Allergy status to penicillin; Z82.49 Family history of ischemic heart disease and other diseases of the circulatory system
CPT/HCPCS: 36415; 71045; 71046; 80048; 80053; 82550; 82553; 83880; 84484; 85025; 85610; 87040; 87804; 93005; 93010; 93306; 94640; 94660; 94799; 99285; J1644; J1940; J1956; J3475; J3490; J7030; J7620

== ENCOUNTER 2017-06-19 17:55 | Emergency (ER) | payer MEDICAID ==
--- NOTE | 2017-06-19 19:11 | ER Document Report ---
ED Medical Screen (RME) - General Chief Complaint: Foot Injury Stated Complaint: FOOT INJURY Time Seen by Provider: 06/19/17 18:41 Mode of Arrival: Ambulatory TRAVEL OUTSIDE OF THE [place] IN LAST 30 DAYS: No - HPI Notes: 06/19/17 19:07 66-year-old male with a past medical history A. fib, pacemaker, systolic CHF, sleep apnea, COPD, hypoxia presents to the ER for complaints of right foot pain after he had his foot against a steel at nighttime. Patient states he has not been taking all of his blood thinners because he does not want to "run out". Patient states he typically does not have high blood pressure, patient states he does not wear oxygen at home and did not know that he had COPD. Patient states pain is 6 out of 10, throbbing achy. Has not tried any [id number] medications. Patient recently had a pacemaker placed back in February. I have greeted and performed a rapid initial assessment of this patient. A comprehensive ED assessment and evaluation of the patient, analysis of test results and completion of medical decision making process will be conducted by an additional ED providers. 06/19/17 19:09 - Related Data Allergies/Adverse Reactions: Penicillins Allergy (Verified 06/19/17 18:00) "cholesterol medicines" Allergy (Uncoded 06/19/17 18:00) Past Medical History - Past Medical History Cardiac Medical History: Reports: Hx Atrial Fibrillation, Hx Hypertension Denies: Hx DVT Pulmonary Medical History: Reports: Hx COPD, Hx Sleep Apnea Neurological Medical History: Reports: Hx Seizures Renal/ Medical History: Denies: Hx Peritoneal Dialysis Psychiatric Medical History: Denies: Hx Depression Past Surgical History: Reports: Hx Cardiac Surgery - Pacemaker, Hx Neurologic Surgery - as a child for seizures - has not had seizures since that time., Hx Pacemaker - Pacemaker however not noted on chest x-ray., Other - brain surgery - Immunizations Immunizations up to date: Yes Hx Diphtheria, Pertussis, Tetanus Vaccination: No History of Influenza Vaccine for 11/2016 - 04/2017 Season: Yes Influenza Administration Date for 11/2016 - 04/2017 Season: 01/15/17 Physical Exam - Vital signs Vitals: Temp Pulse Resp BP Pulse Ox 98.7 F 111 H 20 151/110 H 91 L 06/19/17 18:07 06/19/17 18:07 06/19/17 18:07 06/19/17 18:07 06/19/17 18:07 Course - Vital Signs Vital signs: Temp Pulse Resp BP Pulse Ox 98.7 F 111 H 20 151/110 H 91 L 06/19/17 18:07 06/19/17 18:07 06/19/17 18:07 06/19/17 18:07 06/19/17 18:07 Doctor's Discharge - Discharge Referrals: RAY BHATT MD [Primary Care Provider] - Follow up as needed
[2017-06-19] MEDS ORDERED: OXYCODONE-ACETAMINOPHEN 5-325 MG TABLET PO ONE ×2 (19:48→21:30)
[2017-06-19] MEDS ORDERED: METOPROLOL SUCCINATE 50 MG TAB.SR.24H PO ONE (19:48)
[2017-06-19 19:49] LABS: ABSOLUTE BASOPHILS # (AUTO) 0.1 10^3/uL (0.0-0.2); ABSOLUTE EOSINOPHILS # (AUTO) 0.5 10^3/uL (0.0-0.6); ABSOLUTE LYMPHOCYTES (AUTO) 1.6 10^3/uL (0.5-4.7); ABSOLUTE NEUT (AUTO) 8.3 10^3/uL (1.7-8.2); BASOPHILS % (AUTO) 0.7 % (0-2); EOSINOPHILS % (AUTO) 4.4 % (0-6); HEMATOCRIT 42.5 % (37.9-51.0); LYMPHOCYTES % (AUTO) 14.1 % (13-45); MEAN CORPUSCULAR HGB CONC 32.9 g/dL (32.0-36.0); MEAN CORPUSCULAR VOLUME 88 fl (80-97); MONOCYTES % (AUTO) 8.9 % (3-13); PLATELET COUNT 228 10^3/uL (150-450); RED BLOOD COUNT 4.82 10^6/uL (4.35-5.55); RED CELL DISTRIBUTION WIDTH 14.4 % (11.5-14.0); SEGMENTED NEUTROPHILS % (AUTO) 71.9 % (42-78); TOTAL CELLS COUNTED % (AUTO) 100 %; WHITE BLOOD COUNT 11.5 10^3/uL (4.0-10.5)
--- NOTE | 2017-06-19 19:53 | ER Document Report ---
ED General - General Chief Complaint: Foot Injury Stated Complaint: FOOT INJURY Time Seen by Provider: 06/19/17 18:41 Mode of Arrival: Ambulatory Information source: Patient Notes: 66-year-old male with a history of COPD, hypertension, atrial fibrillation, CAD , pacemaker placement in February 2016 presents from home with complaint of left great toe pain. Patient states that he was running up the stairs to get his phone that was ringing when he stubbed his toe on the stairs. He denies falling , hitting his head or loss of consciousness. When evaluated by EMS he was found to have elevated blood pressure. Patient denies dizziness, visual changes , chest pain, shortness of breath. He denies prior injury to this foot. TRAVEL OUTSIDE OF THE [place] IN LAST 30 DAYS: No - HPI Onset: Just prior to arrival Onset/Duration: Sudden Quality of pain: Throbbing Severity: Moderate Pain Level: 2 Associated symptoms: None. denies: Chest pain, Nonproductive cough, Nausea, Vomiting, Shortness of breath Exacerbated by: Movement Relieved by: Remaining still Similar symptoms previously: No Recently seen / treated by doctor: Yes - Related Data Allergies/Adverse Reactions: Penicillins Allergy (Verified 06/19/17 18:00) "cholesterol medicines" Allergy (Uncoded 06/19/17 18:00) Past Medical History - General Information source: Patient - Social History Smoking Status: Former Smoker Frequency of alcohol use: None Drug Abuse: None Lives with: Family Family History: Hypertension - Past Medical History Cardiac Medical History: Reports: Hx Atrial Fibrillation, Hx Hypertension Denies: Hx DVT Pulmonary Medical History: Reports: Hx COPD, Hx Sleep Apnea Neurological Medical History: Reports: Hx Seizures Renal/ Medical History: Denies: Hx Peritoneal Dialysis Psychiatric Medical History: Denies: Hx Depression Past Surgical History: Reports: Hx Cardiac Surgery - Pacemaker, Hx Neurologic Surgery - as a child for seizures - has not had seizures since that time., Hx Pacemaker - Pacemaker however not noted on chest x-ray., Other - brain surgery - Immunizations Immunizations up to date: Yes Hx Diphtheria, Pertussis, Tetanus Vaccination: No Review of Systems - Review of Systems Notes: Patient denies fever, chills, nausea, vomiting, headache, ear pain, sore throat , cough, chest pain, shortness of breath, abdominal pain, back pain, dysuria, hematuria, rash, SI/HI. Physical Exam - Vital signs Vitals: Temp Pulse Resp BP Pulse Ox 98.7 F 111 H 20 151/110 H 91 L 06/19/17 18:07 06/19/17 18:07 06/19/17 18:07 06/19/17 18:07 06/19/17 18:07 Interpretation: Normal, Hypertensive, Tachycardic Notes: PHYSICAL EXAMINATION: GENERAL: Well-appearing, well-nourished and in no acute distress. HEAD: Atraumatic, normocephalic. EYES: Pupils equal round and reactive to light, extraocular movements intact, sclera anicteric, conjunctiva are normal. ENT: Nares patent, oropharynx clear without exudates. Moist mucous membranes. NECK: Normal range of motion, supple without lymphadenopathy LUNGS: Breath sounds clear to auscultation bilaterally and equal. No wheezes rales or rhonchi. HEART: Regular rate and rhythm without murmurs ABDOMEN: Soft, nontender, nondistended abdomen. No guarding, no rebound. No masses appreciated. Musculoskeletal: Left great toe erythematous, tender to palpation, no obvious deformity, DP pulse intact, cap refill less than 2 seconds. Patient able to wiggle his toes. 5/5 dorsi and plantar flexion. NEUROLOGICAL: Cranial nerves grossly intact. Normal speech, normal gait. Normal sensory, motor exams PSYCH: Normal mood, normal affect. SKIN: Warm, Dry, normal turgor, no rashes or lesions noted. Course - Re-evaluation Re-evalutation: Laboratory 06/19/17 06/19/17 06/19/17 19:37 19:37 19:37 WBC 11.5 H RBC 4.82 Hgb 14.0 Hct 42.5 MCV 88 MCH 29.0 MCHC 32.9 RDW 14.4 H Plt Count 228 Seg Neutrophils % 71.9 Lymphocytes % 14.1 Monocytes % 8.9 Eosinophils % 4.4 Basophils % 0.7 Absolute Neutrophils 8.3 H Absolute Lymphocytes 1.6 Absolute Monocytes 1.0 Absolute Eosinophils 0.5 Absolute Basophils 0.1 D-Dimer 0.54 H Sodium 144.1 Potassium 4.1 Chloride 101 Carbon Dioxide 32 H Anion Gap 11 BUN 18 Creatinine 0.96 Est GFR ( Amer) > 60 Est GFR (Non-Af Amer) > 60 Glucose 101 Lactic Acid Calcium 9.1 Total Bilirubin 0.4 Direct Bilirubin 0.3 Neonat Total Bilirubin Not Reportable Neonat Direct Bilirubin Not Reportable Neonat Indirect Bili Not Reportable AST 20 ALT 20 L Alkaline Phosphatase 71 CK-MB (CK-2) Troponin I NT-Pro-B Natriuret Pep Total Protein 6.6 Albumin 3.9 06/19/17 06/19/17 19:37 19:37 WBC RBC Hgb Hct MCV MCH MCHC RDW Plt Count Seg Neutrophils % Lymphocytes % Monocytes % Eosinophils % Basophils % Absolute Neutrophils Absolute Lymphocytes Absolute Monocytes Absolute Eosinophils Absolute Basophils D-Dimer Sodium Potassium Chloride Carbon Dioxide Anion Gap BUN Creatinine Est GFR ( Amer) Est GFR (Non-Af Amer) Glucose Lactic Acid 0.8 Calcium Total Bilirubin Direct Bilirubin Neonat Total Bilirubin Neonat Direct Bilirubin Neonat Indirect Bili AST ALT Alkaline Phosphatase CK-MB (CK-2) 0.66 Troponin I < 0.012 NT-Pro-B Natriuret Pep 1250 H Total Protein Albumin Foot X-Ray 06/19/17 18:20 IMPRESSION: NEGATIVE STUDY OF THE LEFT FOOT. NO RADIOGRAPHIC EVIDENCE OF ACUTE INJURY. Chest X-Ray 06/19/17 19:04 IMPRESSION: NO ACUTE RADIOGRAPHIC FINDING IN THE CHEST. 06/20/17 19:33 66-year-old male with a history of COPD, hypertension, atrial fibrillation, CAD , pacemaker placement in February 2016 presents from home with complaint of left great toe pain. Patient states that he was running up the stairs to get his phone that was ringing when he stubbed his toe on the stairs. He denies falling , hitting his head or loss of consciousness. When evaluated by EMS he was found to have elevated blood pressure. Patient denies dizziness, visual changes , chest pain, shortness of breath. He denies prior injury to this foot. Patient was seen by myself upon arrival. Vital signs were reviewed. Patient is afebrile, normotensive and not hypoxic. Patient does not appear toxic or dehydrated. They are in no acute distress. Previous medical records and nursing notes reviewed. Cardiac workup was initiated through triage because of the patient's elevated blood pressure. Patient consistently denies chest pain, shortness of breath. Patient found to have a mildly elevated BNP and reports that he does take Lasix at home. Patient also found to have a mildly elevated d -dimer but is without shortness of breath and is currently on Xarelto. Patient received [place] for his toe pain. X-rays show no fracture. Patient did receive his home dose of metoprolol for his elevated blood pressure. He is requesting a prescription for Xarelto because there has been a delay in his medication delivery. Patient provided the opportunity to ask questions, and express concerns. Discharge instructions discussed. Patient is agreeable with discharge home. Return indications explained and discussed with the patient who displays understanding. Patient encouraged to return to the emergency department immediately with any concerns. - Vital Signs Vital signs: Temp Pulse Resp BP Pulse Ox 97.7 F 98 20 158/90 H 92 06/19/17 22:58 06/19/17 22:58 06/19/17 22:58 06/19/17 22:58 06/19/17 22:58 - Laboratory Result Diagrams: 06/19/17 19:37 06/19/17 19:37 Laboratory results interpreted by me: 06/19/17 06/19/17 06/19/17 19:37 19:37 19:37 WBC 11.5 H RDW 14.4 H Absolute Neutrophils 8.3 H D-Dimer 0.54 H Carbon Dioxide 32 H ALT 20 L NT-Pro-B Natriuret Pep 06/19/17 19:37 WBC RDW Absolute Neutrophils D-Dimer Carbon Dioxide ALT NT-Pro-B Natriuret Pep 1250 H - Diagnostic Test Radiology reviewed: Image reviewed - EKG Interpretation by Me Rate: Tachycardia Rhythm: A.Fib Discharge - Discharge Clinical Impression: HTN (hypertension) Qualifiers: Hypertension type: unspecified Qualified Code(s): I10 - Essential (primary) hypertension Atrial fibrillation Qualifiers: Atrial fibrillation type: chronic Qualified Code(s): I48.2 - Chronic atrial fibrillation Obesity Qualifiers: Obesity type: unspecified obesity type Obesity classification: unspecified obesity classification Serious obesity comorbidity presence: unspecified whether serious comorbidity present Qualified Code(s): E66.9 - Obesity, unspecified Contusion of foot including toes Qualifiers: Encounter type: initial encounter Laterality: left Qualified Code(s): S90.32XA - Contusion of left foot, initial encounter Condition: Good Disposition: HOME, SELF-CARE Instructions: Atrial Fibrillation ([facility]), Contusion ([facility]) Additional Instructions: Follow up with your physician tomorrow for further care or return to the ED IMMEDIATELY if symptoms worsen or new concerns occur. If you cannot afford to follow up with your primary care physician a list of low cost clinics have been provided at the end of your discharge papers as well. Prescriptions: Rivaroxaban [Xarelto] 20 mg PO DAILY #30 tablet Forms: Elevated Blood Pressure Referrals: RAY BHATT MD [Primary Care Provider] - 06/21/17
--- NOTE | 2017-06-19 19:55 | RADIOLOGY REPORT (SQ) ---
EXAM DESCRIPTION: FOOT LEFT COMPLETE COMPLETED DATE/TIME: 06/19/2017 7:33 pm REASON FOR STUDY: injury hit foot on step COMPARISON: None. NUMBER OF VIEWS: Three views. TECHNIQUE: AP, lateral and oblique radiographic images acquired of the left foot. LIMITATIONS: None. FINDINGS: MINERALIZATION: Normal. BONES: No acute fracture or dislocation. No worrisome bone lesions. JOINTS: No effusions. SOFT TISSUES: No soft tissue swelling. No foreign body. OTHER: No other significant finding. IMPRESSION: NEGATIVE STUDY OF THE LEFT FOOT. NO RADIOGRAPHIC EVIDENCE OF ACUTE INJURY. TECHNICAL DOCUMENTATION: JOB ID: [id number] [employer]- All Rights Reserved Reading location - IP/workstation name: [email or web address]
[2017-06-19 20:02] LABS: ALANINE AMINOTRANSFERASE 20 U/L (21-72); ALBUMIN 3.9 g/dL (3.5-5.0); ALKALINE PHOSPHATASE 71 U/L (38-126); ANION GAP 11 (5-19); ASPARTATE AMINO TRANSFERASE 20 U/L (17-59); BILIRUBIN,DIRECT 0.3 mg/dL (0.0-0.4); BILIRUBIN,TOTAL 0.4 mg/dL (0.2-1.3); BLOOD UREA NITROGEN 18 mg/dL (7-20); CALCIUM 9.1 mg/dL (8.4-10.2); CARBON DIOXIDE 32 mmol/L (22-30); CHLORIDE 101 mmol/L (98-107); GLUCOSE 101 mg/dL (75-110); POTASSIUM 4.1 mmol/L (3.6-5.0); SODIUM 144.1 mmol/L (137-145); TOTAL PROTEIN 6.6 g/dL (6.3-8.2)
[2017-06-19 20:14] LABS: CREATINE KINASE MB 0.66 ng/mL (<4.55); NT PRO BNP 1250 pg/mL (5-900)
--- NOTE | 2017-06-19 20:19 | EKG REPORT ---
SEVERITY:- ABNORMAL ECG - ATRIAL FIBRILLATION, V-RATE 88-127 BORDERLINE PROLONGED QT INTERVAL : Confirmed by: Nona Burris 19-Jun-2017 20:18:31
--- NOTE | 2017-06-19 20:20 | RADIOLOGY REPORT (SQ) ---
EXAM DESCRIPTION: CHEST 2 VIEWS COMPLETED DATE/TIME: 06/19/2017 8:03 pm REASON FOR STUDY: tachycardia, HTN, pulse ox 91, no hx of copd COMPARISON: 03/16/2017 EXAM PARAMETERS: NUMBER OF VIEWS: two views TECHNIQUE: Digital Frontal and Lateral radiographic views of the chest acquired. RADIATION DOSE: NA LIMITATIONS: none FINDINGS: LUNGS AND PLEURA: No opacities, masses or pneumothorax. No pleural effusion. Chronic harman ges at the left base. MEDIASTINUM AND HILAR STRUCTURES: No masses or contour abnormalities. HEART AND VASCULAR STRUCTURES: Heart normal size. No evidence for failure. BONES: No acute findings. HARDWARE: None in the chest. OTHER: No other significant finding. IMPRESSION: NO ACUTE RADIOGRAPHIC FINDING IN THE CHEST. TECHNICAL DOCUMENTATION: JOB ID: [id number] [employer]- All Rights Reserved Reading location - IP/workstation name: [email or web address]
[2017-06-19 20:23] LABS: TROPONIN I < 0.012 ng/mL
[2017-06-19 23:00] VITALS: BP 158/90
[2017-06-23 08:45] LABS: CK MACRO TYPE 1 0 % (Not Observed); CK MACRO TYPE 2 0 % (Not Observed); CK-MB 0 % (0-3); CK-MM 100 % (97-100); CREATINE KINASE TOTAL 68 U/L (24-204)
[2017-06-23 09:24] LABS: CK-BB 0 % (0)
== END 2017-06-19 23:02 | disposition home or self-care (01) ==
LOC: ER 17:55
DX: S90.32XA Contusion of left foot, initial encounter (principal); E66.9 Obesity, unspecified; I48.2 Chronic atrial fibrillation; I10 Essential (primary) hypertension; M79.675 Pain in left toe(s); W22.8XXA Striking against or struck by other objects, initial encounter; J44.9 Chronic obstructive pulmonary disease, unspecified; I25.10 Atherosclerotic heart disease of native coronary artery without angina pectoris; Z95.0 Presence of cardiac pacemaker; Z87.891 Personal history of nicotine dependence
CPT/HCPCS: 93005; 99284; 36415; 82553; 82552; 85025; 80053; 84484; 85379; 83605; 83880; 71046; 73630; 93010; J3490

== ENCOUNTER 2017-08-06 02:10 | Inpatient (IN) | payer MEDICARE, MEDICAID, OTHER ==
[2017-08-06 02:42] LABS: ALANINE AMINOTRANSFERASE 23 U/L (21-72); ALBUMIN 4.1 g/dL (3.5-5.0); ALKALINE PHOSPHATASE 83 U/L (38-126); ANION GAP 12 (5-19); ASPARTATE AMINO TRANSFERASE 23 U/L (17-59); BILIRUBIN,DIRECT 0.4 mg/dL (0.0-0.4); BILIRUBIN,TOTAL 0.7 mg/dL (0.2-1.3); BLOOD UREA NITROGEN 20 mg/dL (7-20); CARBON DIOXIDE 27 mmol/L (22-30); CHLORIDE 103 mmol/L (98-107); CREATINE KINASE 121 U/L (55-170); GLUCOSE 125 mg/dL (75-110); POTASSIUM 4.4 mmol/L (3.6-5.0); SODIUM 141.6 mmol/L (137-145); TOTAL PROTEIN 6.8 g/dL (6.3-8.2)
--- NOTE | 2017-08-06 02:44 | ER Document Report ---
ED Respiratory Problem - General Mode of Arrival: Ambulatory Information source: Patient TRAVEL OUTSIDE OF THE [place] IN LAST 30 DAYS: No <TERA MONTIEL - Last Filed: 08/06/17 04:27> <SHIKHA KING - Last Filed: 08/06/17 05:43> - General Chief Complaint: Respiratory Distress Stated Complaint: RESPIRATORY DISTRESS Time Seen by Provider: 08/06/17 02:26 Notes: Patient is a 67 year old male with A. fib, COPD, a pacemaker, hypertension presents to the emergency department via EMS complaining of difficulty breathing. Patient states around 00:00 this morning he had chest pain which lasted only for a few seconds. He states he then went to bed at approximately 01 :00 and 30 minutes later he woke up extremely short of breath. He states he used his father's inhaler which seemed to help his breathing prior to EMS arrival. Upon EMS arrival patient received a DuoNeb which patient states also helped his shortness of breath. At bedside patient is currently on oxygen and states he feels this has also relieved some of his difficulty breathing. He states he does not normally wear oxygen at home. Patient is currently prescribed Xarelto. (TERA MONTIEL) - Related Data Allergies/Adverse Reactions: Penicillins Allergy (Verified 08/06/17 02:44) "cholesterol medicines" Allergy (Uncoded 08/06/17 02:44) Past Medical History - General Information source: Patient - Social History Smoking Status: Unknown if Ever Smoked Frequency of alcohol use: None Drug Abuse: None Family History: Hypertension Patient has suicidal ideation: No Patient has homicidal ideation: No - Past Medical History Cardiac Medical History: Reports: Hx Atrial Fibrillation, Hx Hypertension Pulmonary Medical History: Reports: Hx COPD, Hx Sleep Apnea Neurological Medical History: Reports: Hx Seizures Past Surgical History: Reports: Hx Cardiac Surgery - Pacemaker, Hx Neurologic Surgery - as a child for seizures - has not had seizures since that time., Hx Pacemaker - Pacemaker however not noted on chest x-ray., Other - brain surgery - Immunizations Immunizations up to date: Yes Hx Diphtheria, Pertussis, Tetanus Vaccination: No <TERA MONTIEL - Last Filed: 08/06/17 04:27> Review of Systems - Review of Systems Constitutional: No symptoms reported EENT: No symptoms reported Cardiovascular: See HPI, Chest pain Respiratory: See HPI, Short of breath Gastrointestinal: No symptoms reported Genitourinary: No symptoms reported Male Genitourinary: No symptoms reported Musculoskeletal: No symptoms reported Skin: No symptoms reported Hematologic/Lymphatic: No symptoms reported Neurological/Psychological: No symptoms reported -: Yes All other systems reviewed and negative <TERA MONTIEL - Last Filed: 08/06/17 04:27> Physical Exam - General General appearance: Appears well, Alert In distress: None - HEENT Head: Normocephalic, Atraumatic Eyes: Normal Conjunctiva: Normal Extraocular movements intact: Yes Pupils: PERRL Neck: Normal - Respiratory Respiratory status: Respiratory distress, Labored Chest status: Nontender Breath sounds: Normal Chest palpation: Normal - Cardiovascular Rhythm: Regular Heart sounds: Normal auscultation Murmur: No Friction rub: No Gallop: None auscultated - Abdominal Inspection: Obese Distension: No distension Bowel sounds: Normal Tenderness: Nontender Organomegaly: No organomegaly - Back Back: Normal - Extremities General upper extremity: Normal ROM General lower extremity: Normal ROM - Neurological Neuro grossly intact: Yes Cognition: Normal Orientation: AAOx4 [place] Coma Scale Eye Opening: Spontaneous [place] Coma Scale Verbal: Oriented [place] Coma Scale Motor: Obeys Commands [place] Coma Scale Total: 15 Speech: Normal - Psychological Associated symptoms: Normal affect, Normal mood - Skin Skin Temperature: Warm Skin Moisture: Dry Skin Color: Normal <TERA MONTIEL - Last Filed: 08/06/17 04:27> - Vital signs Vitals: Resp 26 H 08/06/17 02:10 Course - Laboratory Result Diagrams: 08/06/17 01:40 08/06/17 01:40 <TERA MONTIEL - Last Filed: 08/06/17 04:27> - Laboratory Result Diagrams: 08/06/17 01:40 08/06/17 01:40 - Diagnostic Test Radiology reviewed: Reports reviewed - Radiologist read the portable chest x- ray is mixed interstitial and airspace opacity with new/worsened left lower lobe opacity/effusion. He did recommend CT in several weeks after clinical management. - EKG Interpretation by Az Rate: Normal - 84 Rhythm: A.Fib, Other - This is most likely aa Atrial sensed-Ventricular paced rhythm When compared to previous EKG there are: No significant change - This paced rhythm is compared to an EKG done on 03/14/2017 which was also paced - Consults Dr. Alicia Time consulted: 05:15 Consulted provider: will come to ER <SHIKHA KING - Last Filed: 08/06/17 05:43> - Re-evaluation Re-evalutation: 08/06/17 04:34 On 5 L nasal cannula patient's pulse ox is running about 91%. He does have obstructive sleep apnea and morbid obesity. His INR is 3.21, he does not take Coumadin but does take Xarelto. On 03/14/2017 his INR was 2.20 on Xarelto, this was never discussed during his admission at that time. Chest x-ray is read by the radiologist possibly worsening airspace disease in the left lower lobe. There is no leukocytosis or fever. The BNP is 1020 the patient reports his breathing does seem to be temporarily better with breathing treatments. 08/06/17 05:17 Patient was put on BiPAP, O2 saturations are now running 97%. (SHIKHA KING) - Vital Signs Vital signs: Temp Pulse Resp BP Pulse Ox 98.2 F 31 H 155/89 H 96 08/06/17 02:26 08/06/17 04:33 08/06/17 02:24 08/06/17 04:33 - Laboratory Laboratory results interpreted by me: 08/06/17 08/06/17 08/06/17 01:40 01:40 01:40 RDW 14.9 H PT Glucose 125 H NT-Pro-B Natriuret Pep 1020 H 08/06/17 01:40 RDW PT 34.3 H Glucose NT-Pro-B Natriuret Pep Critical Care Note - Critical Care Note Total time excluding time spent on procedures (mins): 40 <SHIKHA KING - Last Filed: 08/06/17 05:43> Discharge <TERA MONTIEL - Last Filed: 08/06/17 04:27> - Discharge Admitting Provider: Hospitalist Unit Admitted: Telemetry <SHIKHA KING - Last Filed: 08/06/17 05:43> - Discharge Clinical Impression: Respiratory distress, Hypoxemia, Hypoxia, Morbid obesity with BMI of 50.0-59.9 , adult, Obstructive sleep apnea, Obesity hypoventilation syndrome, Excessive anticoagulation COPD (chronic obstructive pulmonary disease) Qualifiers: COPD type: unspecified COPD Qualified Code(s): J44.9 - Chronic obstructive pulmonary disease, unspecified Condition: Stable Disposition: ADMITTED INPATIENT Scribe Attestation: 08/06/17 04:38 I personally performed the services described in the documentation, reviewed and edited the documentation which was dictated to the scribe in my presence, and it accurately records my words and actions. (SHIKHA KING) Scribe Documentation - Scribe Written by Scribe:: Rajeev Rai, 08/06/2017 02:45 acting as scribe for :: Eloy <TERA MONTIEL - Last Filed: 08/06/17 04:27>
[2017-08-06 02:45] LABS: ABSOLUTE BASOPHILS # (AUTO) 0.1 10^3/uL (0.0-0.2); ABSOLUTE EOSINOPHILS # (AUTO) 0.4 10^3/uL (0.0-0.6); ABSOLUTE LYMPHOCYTES (AUTO) 1.2 10^3/uL (0.5-4.7); ABSOLUTE MONOCYTES (AUTO) 0.7 10^3/uL (0.1-1.4); ABSOLUTE NEUT (AUTO) 6.2 10^3/uL (1.7-8.2); BASOPHILS % (AUTO) 0.9 % (0-2); EOSINOPHILS % (AUTO) 4.9 % (0-6); HEMATOCRIT 42.4 % (37.9-51.0); HEMOGLOBIN 13.9 g/dL (13.5-17.0); LYMPHOCYTES % (AUTO) 13.8 % (13-45); MEAN CORPUSCULAR HEMOGLOBIN 28.2 pg (27.0-33.4); MEAN CORPUSCULAR HGB CONC 32.9 g/dL (32.0-36.0); MEAN CORPUSCULAR VOLUME 86 fl (80-97); MONOCYTES % (AUTO) 8.4 % (3-13); PLATELET COUNT 259 10^3/uL (150-450); RED BLOOD COUNT 4.95 10^6/uL (4.35-5.55); RED CELL DISTRIBUTION WIDTH 14.9 % (11.5-14.0); TOTAL CELLS COUNTED % (AUTO) 100 %; WHITE BLOOD COUNT 8.6 10^3/uL (4.0-10.5)
[2017-08-06 02:49] LABS: INTERNATIONAL RATION (INR) 3.21; PROTHROMBIN TIME 34.3 SEC (11.4-15.4)
[2017-08-06 02:54] LABS: CREATINE KINASE MB 1.97 ng/mL (<4.55); NT PRO BNP 1020 pg/mL (5-900)
[2017-08-06 02:55] LABS: TROPONIN I < 0.012 ng/mL
--- NOTE | 2017-08-06 02:57 | RADIOLOGY REPORT (SQ) ---
EXAM DESCRIPTION: XR CHEST 1 VIEW COMPLETED DATE/TME: 08/06/2017 02:27 CLINICAL HISTORY: 67 years Male, chest pain COMPARISON: 5.5.18 NUMBER OF VIEWS/TECHNIQUE: 1/AP FINDINGS: Adequate lung volume, mixed interstitial and airspace opacity, new/worsened left lower hemithoracic opacity-effusion, normal cardiac silhouette. Normal cardiac silhouette, and intact bony thorax. IMPRESSION: Mixed interstitial and airspace opacity with new/worsened left lower lobar opacity/effusion. Recommend CR/CT surveillance including at 7-12 weeks following initiation of clinically warranted therapy.
[2017-08-06] MEDS ORDERED: IPRATROPIUM/ALBUTEROL 0.5-2.5 MG/3 ML AMPUL NEB ONE (03:08)
[2017-08-06] MEDS ORDERED: IPRATROPIUM/ALBUTEROL 0.5-2.5 MG/3 ML AMPUL NEB PRN ×2 (05:17→05:18)
[2017-08-06] MEDS ORDERED: CHLORPHENIRAMINE MALEATE 4 MG TABLET PO ONE (05:17)
[2017-08-06] MEDS ORDERED: LACTULOSE SYRUP 20 GM/30 ML UDCUP PO ONE (05:39)
[2017-08-06] MEDS ORDERED: METOPROLOL SUCCINATE 50 MG TAB.SR.24H PO ONE (05:45)
[2017-08-06] MEDS ORDERED: FLUTICASONE NASAL SPRAY 50 MCG/SPRY 120 SPRAY/16 GM NASL ONE (05:45)
[2017-08-06] MEDS ORDERED: FUROSEMIDE INJ/PF 40 MG/4 ML SDV IV ONE (05:45)
[2017-08-06] MEDS ORDERED: DOXYCYCLINE HYCLATE 100 MG TABLET PO ONE (06:00)
--- NOTE | 2017-08-06 06:52 | PDOC H&P ---
History of Present Illness Admission Date/PCP: 08/06/17 05:37 Patient complains of: Shortness of breath History of Present Illness: YARELI LIMON III is a 67 year old male with history of atrial fibrillation atrial flutter status post permanent pacemaker placement 5 months ago, hypertension, morbid obesity, obstructive sleep apnea and schizophrenia. Patient presents with 48 hours of shortness of breath and a nonproductive cough , denying chest pain fever chills nausea vomiting, admitting noncompliance with diltiazem and CPAP. He is also unaware of dietary restrictions in the emergency room he is found to have congestive heart failure with uncontrolled blood pressure, a BNP greater than 1000 and +2 edema of the lower extremity bilaterally. He is placed on BiPAP and referred to the hospitalist for admission. Past Medical History Cardiac Medical History: Reports: Atrial Fibrillation, Hypertension Denies: DVT Pulmonary Medical History: Reports: Bronchitis, Chronic Obstructive Pulmonary Disease (COPD), Sleep Apnea Neurological Medical History: Reports: Seizures Psychiatric Medical History: Reports: Schizoaffective Disorder Denies: Depression Past Surgical History Past Surgical History: Reports: Pacemaker - Pacemaker however not noted on chest x-ray., Other - brain surgery Social History Information Source: Patient, [facility] Records Lives with: Alone Smoking Status: Unknown if Ever Smoked Frequency of Alcohol Use: None Hx Recreational Drug Use: No Drugs: None Hx Prescription Drug Abuse: No - Advance Directive Resuscitation Status: Full Code Family History Family History: Hypertension Parental Family History Reviewed: Yes Children Family History Reviewed: Yes Sibling(s) Family History Reviewed.: Yes Medication/Allergy Home Medications: Rivaroxaban [Xarelto] 20 mg PO QPM 02/28/17 Lisinopril [Zestril] 20 mg PO DAILY 03/15/17 Diltiazem HCl [Cardizem Cd 240 mg Capsule.cr] 240 mg PO DAILY 30 Days #30 capsule.cr 03/19/17 Doxycycline Hyclate 100 mg PO BID #10 capsule 03/19/17 Furosemide [Lasix 40 mg Tablet] 40 mg PO QAM #30 tablet 03/19/17 Metoprolol Succinate [Toprol Xl 50 mg Tab.sr] 50 mg PO Q12 #60 tab.sr.24h Potassium Chloride [K-Tab ER] 20 meq PO DAILY #60 tablet.er 03/19/17 Rivaroxaban [Xarelto] 20 mg PO DAILY #30 tablet 06/19/17 Allergies/Adverse Reactions: Penicillins Allergy (Verified 08/06/17 02:44) "cholesterol medicines" Allergy (Uncoded 08/06/17 02:44) Review of Systems Constitutional: PRESENT: as per HPI, fatigue, weakness, weight gain. ABSENT: chills, fever(s), headache(s), weight loss Eyes: ABSENT: visual disturbances Ears: ABSENT: hearing changes Cardiovascular: PRESENT: as per HPI, dyspnea on exertion, edema, orthropnea. ABSENT: chest pain, palpitations Respiratory: PRESENT: as per HPI, cough, dyspnea. ABSENT: hemoptysis, sputum Gastrointestinal: ABSENT: abdominal pain, constipation, diarrhea, hematemesis, hematochezia, nausea, vomiting Genitourinary: ABSENT: dysuria, hematuria Musculoskeletal: ABSENT: joint swelling Integumentary: ABSENT: rash, wounds Neurological: ABSENT: abnormal gait, abnormal speech, confusion, dizziness, focal weakness, syncope Psychiatric: ABSENT: anxiety, depression, homidical ideation, suicidal ideation Endocrine: ABSENT: cold intolerance, heat intolerance, polydipsia, polyuria Hematologic/Lymphatic: ABSENT: easy bleeding, easy bruising Physical Exam Vital Signs: Temp Pulse Resp BP Pulse Ox 98.2 F 19 151/105 H 95 08/06/17 02:26 08/06/17 06:04 08/06/17 06:04 08/06/17 06:31 General appearance: PRESENT: cooperative, disheveled, mild distress, morbidly obese. ABSENT: hard of hearing Head exam: PRESENT: atraumatic, normocephalic Eye exam: PRESENT: conjunctiva pink, EOMI, PERRLA. ABSENT: scleral icterus Ear exam: PRESENT: normal external ear exam Mouth exam: PRESENT: moist, tongue midline Neck exam: ABSENT: carotid bruit, JVD, lymphadenopathy, thyromegaly Respiratory exam: PRESENT: accessory muscle use, crackles, prolonged expiratory phas, retraction, symmetrical, tachypnea. ABSENT: rhonchi Cardiovascular exam: PRESENT: RRR. ABSENT: diastolic murmur, rubs, systolic murmur Pulses: PRESENT: normal dorsalis pedis pul Vascular exam: PRESENT: normal capillary refill GI/Abdominal exam: PRESENT: normal bowel sounds, soft. ABSENT: distended, guarding, mass, organolmegaly, rebound, tenderness Rectal exam: PRESENT: deferred Extremities exam: PRESENT: pedal edema, +2 edema. ABSENT: calf tenderness, clubbing, joint swelling Neurological exam: PRESENT: alert, awake, oriented to person, oriented to place , oriented to time, oriented to situation, CN II-XII grossly intact. ABSENT: motor sensory deficit Psychiatric exam: PRESENT: anxious, unusual affect Skin exam: PRESENT: dry, intact, warm. ABSENT: cyanosis, rash Results Impressions: Chest X-Ray 08/06/17 02:27 IMPRESSION: Mixed interstitial and airspace opacity with new/worsened left lower lobar opacity/effusion. Recommend CR/CT surveillance including at 7-12 weeks following initiation of clinically warranted therapy. Assessment & Plan - Diagnosis (1) Chronic systolic CHF (congestive heart failure) Is this a current diagnosis for this admission?: Yes Plan: Acutely decompensated congestive heart failure with uncontrolled hypertension, likely secondary to noncompliance with diltiazem and CPAP. IV Lasix, BiPAP, resumption of diltiazem and BiPAP. Education (2) COPD (chronic obstructive pulmonary disease) Qualifiers: COPD type: unspecified COPD Qualified Code(s): J44.9 - Chronic obstructive pulmonary disease, unspecified Is this a current diagnosis for this admission?: Yes Plan: BiPAP, albuterol and Atrovent, incentive spirometry. Empiric antibiotic for bronchitis (3) Morbid obesity with BMI of 50.0-59.9, adult Is this a current diagnosis for this admission?: Yes Plan: Morbid obesity will evaluate for metabolic cause with evaluation of thyroid function and dietitian consultation (4) Obstructive sleep apnea Is this a current diagnosis for this admission?: Yes Plan: BiPAP (5) Respiratory distress Is this a current diagnosis for this admission?: Yes Plan: Secondary to #1, BiPAP - Time Time Spent: 50 to 70 Minutes - Inpatient Certification Medical Necessity: Need Close Monitoring Due to Risk of Patient Decompensation
--- NOTE | 2017-08-06 08:23 | EKG REPORT ---
SEVERITY:- ABNORMAL ECG - ATRIAL FIBRILLATION, V-RATE 88-88 NONSPECIFIC IVCD WITH LAD IVCD : Confirmed by: Nona Burris 06-Aug-2017 08:23:22
[2017-08-06 09:14] LABS: APPEARANCE,URINE CLEAR; BILIRUBIN,URINE NEGATIVE (NEGATIVE); COLOR,URINE COLORLESS; GLUCOSE, URINE NEGATIVE (NEGATIVE); KETONES,URINE NEGATIVE (NEGATIVE); LEUKOCYTE ESTERASE,URINE NEGATIVE (NEGATIVE); NITRITE,URINE NEGATIVE (NEGATIVE); PROTEIN,URINE NEGATIVE (NEGATIVE); URINE SPECIFIC GRAVITY 1.006; UROBILINOGEN,URINE NEGATIVE mg/dL (<2.0)
[2017-08-06] MEDS: DILTIAZEM HCL 240 MG CAPSULE.CR PO SCH (09:22)
[2017-08-06] MEDS: IPRATROPIUM/ALBUTEROL 0.5-2.5 MG/3 ML AMPUL NEB SCH ×2 (09:31→16:40)
[2017-08-06] MEDS: RIVAROXABAN 10 MG TABLET PO SCH (17:04)
[2017-08-06] MEDS: DOXYCYCLINE HYCLATE 100 MG TABLET PO SCH (17:04)
[2017-08-06] MEDS: METOPROLOL SUCCINATE 50 MG TAB.SR.24H PO SCH (21:49)
[2017-08-06] MEDS: FLUTICASONE NASAL SPRAY 50 MCG/SPRY 120 SPRAY/16 GM NASL SCH (21:49)
[2017-08-07] MEDS: IPRATROPIUM/ALBUTEROL 0.5-2.5 MG/3 ML AMPUL NEB SCH ×4 (00:20→22:44)
[2017-08-07 05:12] LABS: ABSOLUTE BASOPHILS # (AUTO) 0.1 10^3/uL (0.0-0.2); ABSOLUTE EOSINOPHILS # (AUTO) 0.6 10^3/uL (0.0-0.6); ABSOLUTE LYMPHOCYTES (AUTO) 1.2 10^3/uL (0.5-4.7); ABSOLUTE MONOCYTES (AUTO) 0.9 10^3/uL (0.1-1.4); ABSOLUTE NEUT (AUTO) 5.5 10^3/uL (1.7-8.2); BASOPHILS % (AUTO) 1.1 % (0-2); EOSINOPHILS % (AUTO) 6.8 % (0-6); HEMATOCRIT 42.7 % (37.9-51.0); HEMOGLOBIN 14.1 g/dL (13.5-17.0); LYMPHOCYTES % (AUTO) 14.5 % (13-45); MEAN CORPUSCULAR HEMOGLOBIN 28.2 pg (27.0-33.4); MEAN CORPUSCULAR HGB CONC 32.9 g/dL (32.0-36.0); MEAN CORPUSCULAR VOLUME 86 fl (80-97); MONOCYTES % (AUTO) 11.1 % (3-13); PLATELET COUNT 207 10^3/uL (150-450); RED BLOOD COUNT 4.98 10^6/uL (4.35-5.55); RED CELL DISTRIBUTION WIDTH 14.3 % (11.5-14.0); SEGMENTED NEUTROPHILS % (AUTO) 66.5 % (42-78); TOTAL CELLS COUNTED % (AUTO) 100 %; WHITE BLOOD COUNT 8.2 10^3/uL (4.0-10.5)
[2017-08-07 05:31] LABS: ANION GAP 11 (5-19); BLOOD UREA NITROGEN 16 mg/dL (7-20); CALCIUM 9.1 mg/dL (8.4-10.2); CARBON DIOXIDE 28 mmol/L (22-30); CHLORIDE 102 mmol/L (98-107); GLUCOSE 97 mg/dL (75-110); POTASSIUM 4.9 mmol/L (3.6-5.0); SODIUM 140.9 mmol/L (137-145)
[2017-08-07] MEDS: DOXYCYCLINE HYCLATE 100 MG TABLET PO SCH ×2 (05:49→17:11)
[2017-08-07] MEDS: ACETAMINOPHEN 325 MG TABLET PO PRN ×2 (07:26→21:19)
[2017-08-07] MEDS: DILTIAZEM HCL 240 MG CAPSULE.CR PO SCH (09:07)
[2017-08-07] MEDS: FLUTICASONE NASAL SPRAY 50 MCG/SPRY 120 SPRAY/16 GM NASL SCH ×2 (09:21→21:19)
[2017-08-07] MEDS: METOPROLOL SUCCINATE 50 MG TAB.SR.24H PO SCH ×2 (09:21→21:19)
[2017-08-07] MEDS: FUROSEMIDE INJ/PF 40 MG/4 ML SDV IV SCH (09:21)
--- NOTE | 2017-08-07 16:10 | PDOC PROGRESS REPORT ---
Subjective Progress Note for:: 08/07/17 Subjective:: He was sitting up in the chair off oxygen this morning. He said he still gets short of breath whenever he gets up and walks to the bathroom. At rest he says his breathing is okay. He does not have any chest pain. Reason For Visit: COPD, DIASTOLIC CHF Physical Exam Vital Signs: Temp Pulse Resp BP Pulse Ox 98.3 F 80 20 117/72 94 08/07/17 11:28 08/07/17 11:28 08/07/17 11:28 08/07/17 11:28 08/07/17 11:28 Pulse Oximeter Continuous Start: 08/06/17 05: 18 Freq: RTQ4 Status: Active Document 08/07/17 08:32 JDR (Rec: 08/07/17 08:46 JDR [email or web address]) Pulse Oximetry Assessment Oxygen Saturation (92-100) 90 Oxygen Delivery Method Room Air Fraction of Inspired Oxygen (FIO2) 21 Equipment Usage Equipment in Use Continuous SpO2 Machine # 7 Intake & Output 08/06/17 08/07/17 08/08/17 06:59 06:59 06:59 Intake Total 400 Output Total 1050 Balance -650 Weight 135.5 kg 135.5 kg General appearance: PRESENT: no acute distress, morbidly obese, well-developed Head exam: PRESENT: atraumatic, normocephalic Respiratory exam: PRESENT: rales - Bibasilar, unlabored. ABSENT: rhonchi, wheezes Cardiovascular exam: PRESENT: RRR. ABSENT: diastolic murmur, rubs, systolic murmur GI/Abdominal exam: PRESENT: normal bowel sounds, soft. ABSENT: distended, guarding, mass, organolmegaly, rebound, tenderness Extremities exam: PRESENT: pedal edema - Bilateral, +1 edema - Bilateral lower extremities. ABSENT: calf tenderness, clubbing Neurological exam: PRESENT: alert, awake, oriented to person, oriented to place , oriented to time Results Laboratory Results: 08/07/17 04:20 08/07/17 04:20 08/07/17 08/07/17 04:20 04:20 WBC 8.2 RBC 4.98 Hgb 14.1 Hct 42.7 MCV 86 MCH 28.2 MCHC 32.9 RDW 14.3 H Plt Count 207 Seg Neutrophils % 66.5 Lymphocytes % 14.5 Monocytes % 11.1 Eosinophils % 6.8 H Basophils % 1.1 Absolute Neutrophils 5.5 Absolute Lymphocytes 1.2 Absolute Monocytes 0.9 Absolute Eosinophils 0.6 Absolute Basophils 0.1 Sodium 140.9 Potassium 4.9 Chloride 102 Carbon Dioxide 28 Anion Gap 11 BUN 16 Creatinine 0.81 Est GFR ( Amer) > 60 Est GFR (Non-Af Amer) > 60 Glucose 97 Calcium 9.1 Impressions: Chest X-Ray 08/06/17 02:27 IMPRESSION: Mixed interstitial and airspace opacity with new/worsened left lower lobar opacity/effusion. Recommend CR/CT surveillance including at 7-12 weeks following initiation of clinically warranted therapy. Assessment & Plan - Diagnosis (1) Acute exacerbation of CHF (congestive heart failure) Qualifiers: Heart failure type: systolic Qualified Code(s): I50.23 - Acute on chronic systolic (congestive) heart failure Is this a current diagnosis for this admission?: Yes Plan: Fluid restriction. IV Lasix. Monitoring electrolytes and renal function. He is improved today not requiring supplemental oxygen at rest. He still fluid overloaded and requires IV Lasix at this point. - Time Time Spent with patient: 15-24 minutes Medications reviewed and adjusted accordingly: Yes
[2017-08-07] MEDS: RIVAROXABAN 10 MG TABLET PO SCH (17:10)
[2017-08-08] MEDS: DOXYCYCLINE HYCLATE 100 MG TABLET PO SCH ×2 (05:28→17:11)
[2017-08-08] MEDS: IPRATROPIUM/ALBUTEROL 0.5-2.5 MG/3 ML AMPUL NEB SCH ×3 (07:57→22:37)
[2017-08-08] MEDS: DILTIAZEM HCL 240 MG CAPSULE.CR PO SCH (09:07)
[2017-08-08] MEDS: FLUTICASONE NASAL SPRAY 50 MCG/SPRY 120 SPRAY/16 GM NASL SCH ×2 (09:12→21:28)
[2017-08-08] MEDS: FUROSEMIDE INJ/PF 40 MG/4 ML SDV IV SCH (09:12)
[2017-08-08] MEDS: METOPROLOL SUCCINATE 50 MG TAB.SR.24H PO SCH ×2 (09:12→21:27)
--- NOTE | 2017-08-08 12:52 | PDOC PROGRESS REPORT ---
Subjective Progress Note for:: 08/08/17 Subjective:: Patient admitted with difficulty breathing and shortness of breath without any chest pain. He says he is feeling better. He did not use CPAP last night and says he does not show that he can follow-up as outpatient as he does not have the money to buy a machine. I have encouraged him to go back to [place] where he had recent procedure so that he can be referred to the appropriate specialist to get his test done and I have reassured him that they will be some kind of help available so that he can get the machine if required Reason For Visit: COPD, DIASTOLIC CHF Physical Exam Vital Signs: Temp Pulse Resp BP Pulse Ox 98.2 F 81 20 130/59 H 96 08/08/17 11:11 08/08/17 11:11 08/08/17 11:11 08/08/17 11:11 08/08/17 11:11 Pulse Oximeter Continuous Start: 08/06/17 05: 18 Freq: RTQ4 Status: Active Document 08/08/17 08:00 JDR (Rec: 08/08/17 08:08 JDR [email or web address]) Pulse Oximetry Assessment Oxygen Saturation (92-100) 96 Oxygen Flow Rate (L/min) 2 Oxygen Delivery Method Nasal Cannula Fraction of Inspired Oxygen (FIO2) 28 Equipment Usage Equipment in Use Continuous SpO2 Machine # 7 Intake & Output 08/07/17 08/08/17 08/09/17 06:59 06:59 06:59 Intake Total 400 1219 Output Total 1050 925 Balance -650 294 Weight 135.5 kg 130.9 kg General appearance: PRESENT: no acute distress, morbidly obese, well-developed, well-nourished Head exam: PRESENT: atraumatic, normocephalic Eye exam: PRESENT: conjunctiva pink, EOMI, PERRLA. ABSENT: scleral icterus Ear exam: PRESENT: normal external ear exam Mouth exam: PRESENT: moist, tongue midline Neck exam: ABSENT: carotid bruit, JVD, lymphadenopathy, thyromegaly Respiratory exam: PRESENT: crackles, decreased breath sounds. ABSENT: rales, rhonchi, wheezes Cardiovascular exam: PRESENT: RRR. ABSENT: diastolic murmur, rubs, systolic murmur Pulses: PRESENT: normal dorsalis pedis pul Vascular exam: PRESENT: normal capillary refill GI/Abdominal exam: PRESENT: normal bowel sounds, soft. ABSENT: distended, guarding, mass, organolmegaly, rebound, tenderness Rectal exam: PRESENT: deferred Extremities exam: PRESENT: full ROM, +1 edema. ABSENT: calf tenderness, clubbing, pedal edema Neurological exam: PRESENT: alert, awake, oriented to person, oriented to place , oriented to time, oriented to situation, CN II-XII grossly intact. ABSENT: motor sensory deficit Psychiatric exam: PRESENT: appropriate affect, normal mood. ABSENT: homicidal ideation, suicidal ideation Skin exam: PRESENT: dry, intact, warm. ABSENT: cyanosis, rash Results Laboratory Results: 08/07/17 04:20 08/07/17 04:20 Impressions: Chest X-Ray 08/06/17 02:27 IMPRESSION: Mixed interstitial and airspace opacity with new/worsened left lower lobar opacity/effusion. Recommend CR/CT surveillance including at 7-12 weeks following initiation of clinically warranted therapy. Assessment & Plan - Diagnosis (1) Acute exacerbation of CHF (congestive heart failure) Qualifiers: Heart failure type: systolic Qualified Code(s): I50.23 - Acute on chronic systolic (congestive) heart failure Is this a current diagnosis for this admission?: Yes (3) Morbid obesity with BMI of 50.0-59.9, adult Is this a current diagnosis for this admission?: Yes - Time Time Spent with patient: 15-24 minutes Medications reviewed and adjusted accordingly: Yes Anticipated discharge: Home Within: within 72 hours - Inpatient Certification Based on my medical assessment, after consideration of the patient's comorbidities, presenting symptoms, or acuity I expect that the services needed warrant INPATIENT care.: Yes Medical Necessity: Need for Nebulizer Therapy and Monitoring of Response, Risk of Complication if Not Cared For in Hospital - Plan Summary Plan Summary: Acutely decompensated congestive heart failure on chronic systolic CHF currently on Lasix it appears patient has been somewhat noncompliant with his prescribed regimen including BiPAP, diltiazem and Lasix. We will continue to diurese him. 2. COPD currently on bronchodilators as well as empiric antibiotics for bronchitis 3. Morbid obesity 4. Obstructive sleep apnea patient encouraged to follow-up with sleep study test 5. Patient will need more education and reinforcement as he keeps insisting that he does not have money for all this testing doctors and says does not have time to follow-up with this test. I have explained to him that it is imperative that he follows up as advised to prevent recurrent admissions and even prematurely
[2017-08-08] MEDS: RIVAROXABAN 10 MG TABLET PO SCH (17:11)
[2017-08-08] MEDS: ACETAMINOPHEN 325 MG TABLET PO PRN (22:35)
[2017-08-09] MEDS: DOXYCYCLINE HYCLATE 100 MG TABLET PO SCH ×2 (05:22→17:12)
[2017-08-09] MEDS: IPRATROPIUM/ALBUTEROL 0.5-2.5 MG/3 ML AMPUL NEB SCH ×3 (08:41→23:48)
[2017-08-09] MEDS: FLUTICASONE NASAL SPRAY 50 MCG/SPRY 120 SPRAY/16 GM NASL SCH ×2 (09:28→21:41)
[2017-08-09] MEDS: FUROSEMIDE INJ/PF 40 MG/4 ML SDV IV SCH (09:28)
[2017-08-09] MEDS: DILTIAZEM HCL 240 MG CAPSULE.CR PO SCH (09:29)
[2017-08-09] MEDS: METOPROLOL SUCCINATE 50 MG TAB.SR.24H PO SCH ×2 (09:29→21:41)
--- NOTE | 2017-08-09 14:31 | PDOC PROGRESS REPORT ---
Subjective Progress Note for:: 08/09/17 Subjective:: Patient admitted with difficulty breathing and shortness of breath without any chest pain. He says he is feeling better. He did not use CPAP last night and says he does not show that he can follow-up as outpatient as he does not have the money to buy a machine. I have encouraged him to go back to [place] where he had recent procedure so that he can be referred to the appropriate specialist to get his test done and I have reassured him that they will be some kind of help available so that he can get the machine if required Reason For Visit: COPD, DIASTOLIC CHF Physical Exam Vital Signs: Temp Pulse Resp BP Pulse Ox 98.2 F 79 17 102/54 L 96 08/09/17 11:26 08/09/17 11:26 08/09/17 11:26 08/09/17 11:26 08/09/17 11:26 Pulse Oximeter Continuous Start: 08/06/17 05: 18 Freq: RTQ4 Status: Active Document 08/09/17 08:41 HCR (Rec: 08/09/17 10:35 HCR [email or web address]) Pulse Oximetry Assessment Oxygen Saturation (92-100) 94 Oxygen Flow Rate (L/min) 2 Oxygen Delivery Method Nasal Cannula Equipment Usage Equipment in Use Continuous SpO2 Machine # 7 Intake & Output 08/08/17 08/09/17 08/10/17 06:59 06:59 06:59 Intake Total 1219 1080 Output Total 925 500 Balance 294 580 Weight 130.9 kg 130.9 kg General appearance: PRESENT: no acute distress, morbidly obese, well-developed, well-nourished Head exam: PRESENT: atraumatic, normocephalic Eye exam: PRESENT: conjunctiva pink, EOMI, PERRLA. ABSENT: scleral icterus Ear exam: PRESENT: normal external ear exam Mouth exam: PRESENT: moist, tongue midline Neck exam: ABSENT: carotid bruit, JVD, lymphadenopathy, thyromegaly Respiratory exam: PRESENT: clear to auscultation tami. ABSENT: rales, rhonchi, wheezes Cardiovascular exam: PRESENT: RRR. ABSENT: diastolic murmur, rubs, systolic murmur Pulses: PRESENT: normal dorsalis pedis pul Vascular exam: PRESENT: normal capillary refill GI/Abdominal exam: PRESENT: normal bowel sounds, soft. ABSENT: distended, guarding, mass, organolmegaly, rebound, tenderness Rectal exam: PRESENT: deferred Extremities exam: PRESENT: full ROM. ABSENT: calf tenderness, clubbing, pedal edema Neurological exam: PRESENT: alert, awake, oriented to person, oriented to place , oriented to time, oriented to situation, CN II-XII grossly intact. ABSENT: motor sensory deficit Psychiatric exam: PRESENT: appropriate affect, normal mood. ABSENT: homicidal ideation, suicidal ideation Skin exam: PRESENT: dry, intact, warm. ABSENT: cyanosis, rash Results Laboratory Results: 08/07/17 04:20 08/07/17 04:20 Impressions: Chest X-Ray 08/06/17 02:27 IMPRESSION: Mixed interstitial and airspace opacity with new/worsened left lower lobar opacity/effusion. Recommend CR/CT surveillance including at 7-12 weeks following initiation of clinically warranted therapy. Assessment & Plan - Diagnosis (1) Acute exacerbation of CHF (congestive heart failure) Qualifiers: Heart failure type: systolic Qualified Code(s): I50.23 - Acute on chronic systolic (congestive) heart failure Is this a current diagnosis for this admission?: Yes (3) Morbid obesity with BMI of 50.0-59.9, adult Is this a current diagnosis for this admission?: Yes (4) Acute respiratory failure Qualifiers: Respiratory failure complication: hypoxia Qualified Code(s): J96.01 - Acute respiratory failure with hypoxia Is this a current diagnosis for this admission?: Yes Plan: He was initially on 6 L of oxygen and this has improved however he still hypoxemic with his oxygen at about 87% at rest as well as on ambulation. He likely will need oxygen on discharge home. Likely secondary to decompensated CHF - Time Time Spent with patient: 15-24 minutes Medications reviewed and adjusted accordingly: Yes Anticipated discharge: Home Within: within 48 hours - Inpatient Certification Based on my medical assessment, after consideration of the patient's comorbidities, presenting symptoms, or acuity I expect that the services needed warrant INPATIENT care.: Yes Medical Necessity: Need For Continuous Telemetry Monitoring - Plan Summary Plan Summary: 1. Acutely decompensated congestive heart failure on chronic systolic CHF currently on Lasix it appears patient has been somewhat noncompliant with his prescribed regimen including BiPAP, diltiazem and Lasix. We will continue to diurese him. Discussed the need to be compliant with the patient however he continues to say that he does not have money time to follow instructions 2. COPD currently on bronchodilators as well as empiric antibiotics for bronchitis 3. Morbid obesity 4. Obstructive sleep apnea patient encouraged to follow-up with sleep study test 5. Patient will need more education and reinforcement as he keeps insisting that he does not have money for all this testing doctors and says does not have time to follow-up with this test. I have explained to him that it is imperative that he follows up as advised to prevent recurrent admissions and even prematurely 6. Recent pacemaker placement for atrial fibrillation. Patient currently remains in sinus rhythm. 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 #7 patient is hypoxemic with his resting O2 going down as low as 87% and ambulatory O2 also going down below 87%. He will need home oxygen however his has also told me that he does not have money for that. Discharge planning will be consulted to see how we can help this gentleman 8. Acute respiratory failure 9. Abnormal chest x-ray with follow-up CT suggested in about 7 weeks
[2017-08-09] MEDS: ACETAMINOPHEN 325 MG TABLET PO PRN (17:13)
[2017-08-09] MEDS: RIVAROXABAN 10 MG TABLET PO SCH (17:13)
[2017-08-10] MEDS: DOXYCYCLINE HYCLATE 100 MG TABLET PO SCH (06:14)
[2017-08-10] MEDS: IPRATROPIUM/ALBUTEROL 0.5-2.5 MG/3 ML AMPUL NEB SCH (09:20)
[2017-08-10] MEDS: FUROSEMIDE INJ/PF 40 MG/4 ML SDV IV SCH (10:17)
[2017-08-10] MEDS: FLUTICASONE NASAL SPRAY 50 MCG/SPRY 120 SPRAY/16 GM NASL SCH (10:18)
[2017-08-10] MEDS: DILTIAZEM HCL 240 MG CAPSULE.CR PO SCH (10:18)
[2017-08-10] MEDS: METOPROLOL SUCCINATE 50 MG TAB.SR.24H PO SCH (10:18)
--- NOTE | 2017-08-10 11:59 | PDOC DISCHARGE SUMMARY ---
General - Admit/Disc Date/PCP Admission Date/Primary Care Provider: 08/06/17 11:30 Discharge Date: 08/10/17 - Discharge Diagnosis (1) Acute exacerbation of CHF (congestive heart failure) Is this a current diagnosis for this admission?: Yes (3) Morbid obesity with BMI of 50.0-59.9, adult Is this a current diagnosis for this admission?: Yes (4) Acute respiratory failure Is this a current diagnosis for this admission?: Yes (5) Abnormal CXR (chest x-ray) Is this a current diagnosis for this admission?: Yes (6) Chronic anticoagulation Is this a current diagnosis for this admission?: Yes - Additional Information Resuscitation Status: Full Code Discharge Diet: Cardiac Discharge Activity: Activity As Tolerated, Balance Activity w/Rest, Weigh Daily Prescriptions: Doxycycline Hyclate [Vibramycin 100 mg Tablet] 100 mg PO Q12A #7 tablet Fluticasone Propionate [Flonase Nasal [place] 50 Mcg/[place] 16 gm] 2 spray NASL Q12 #1 spray.pump Home Medications: Rivaroxaban [Xarelto] 20 mg PO QPM 02/28/17 Lisinopril [Zestril] 20 mg PO BID 03/15/17 Diltiazem HCl [Cardizem Cd 240 mg Capsule.cr] 240 mg PO DAILY 30 Days #30 capsule.cr 03/19/17 Furosemide [Lasix 40 mg Tablet] 40 mg PO QAM #30 tablet 03/19/17 Potassium Chloride [K-Tab ER] 20 meq PO DAILY #60 tablet.er 03/19/17 Metoprolol Tartrate [Lopressor 50 mg Tablet] 50 mg PO Q12H 08/06/17 [place]-3 Fatty Acids/Fish Oil [Fish Oil 1,000 mg Capsule] 1 each PO DAILY Doxycycline Hyclate [Vibramycin 100 mg Tablet] 100 mg PO Q12A #7 tablet Fluticasone Propionate [Flonase Nasal [place] 50 Mcg/[place] 16 gm] 2 spray NASL Q12 #1 spray.pump 08/10/17 History of Present Illness Patient complains of: This patient was admitted with difficulty breathing and shortness of breath. He was found to be in acute respiratory failure likely secondary to see CHF decompensation. Patient has a history of atrial fibrillation and atrial flutter and he is on diltiazem as well as Eliquis patient however appears to be somewhat noncompliant and a little bit nonchalant about his care. History of Present Illness: YARELI LIMON III is a 67 year old male patient was admitted with difficulty breathing and shortness of breath. He was found to be in acute respiratory failure likely secondary to see CHF decompensation. Patient has a history of atrial fibrillation and atrial flutter and he is on diltiazem as well as Eliquis patient however appears to be somewhat noncompliant and a little bit nonchalant about his care. Hospital Course Hospital Course: This patient was admitted with difficulty breathing and shortness of breath. He was found to be in acute respiratory failure likely secondary to see CHF decompensation. Patient has a history of atrial fibrillation and atrial flutter and he is on diltiazem as well as Eliquis patient however appears to be somewhat noncompliant and a little bit nonchalant about his care. His BNP was elevated initially. Patient was started on intravenous Lasix and he has gradually improved while in hospital. He was also found to have elevated blood pressure with hypertensive emergency but his blood pressure is much better controlled today. Patient likely also has sleep apnea but although he used his CPAP while in hospital. Patient was also treated for COPD with bronchodilators as well as empiric antibiotics although he received no steroids Patient has continued to improve. He will be discharged home on oxygen as he was found to be hypoxemic with his resting and ambulatory oxygen less than 88%. Patient has also been advised of the need to follow-up with cloth calender as outpatient for sleep study as he would benefit from a CPAP. Patient has been encouraged to be compliant with his medications as prescribed. A chest x-ray done on admission revealed new or worsened left lower lobe opacity or effusion and imaging surveillance including a 7-12 weeks following treatment is recommended. Next Patient has remained hemodynamically stable and would no further interventions been planned is been discharged home Physical Exam Vital Signs: Temp Pulse Resp BP Pulse Ox 97.8 F 81 16 131/73 H 92 08/10/17 07:33 08/10/17 09:21 08/10/17 09:21 08/10/17 07:33 08/10/17 09:21 Pulse Oximeter Continuous Start: 08/06/17 05: 18 Freq: RTQ4 Status: Active Document 08/10/17 09:21 [facility] [place] (Rec: 08/10/17 09:33 [facility] [place] [id number]) Pulse Oximetry Assessment Oxygen Saturation (92-100) 92 Oxygen Flow Rate (L/min) 2 Oxygen Delivery Method Nasal Cannula Fraction of Inspired Oxygen (FIO2) 28 Equipment Usage Equipment in Use Continuous SpO2 Machine # N 7 Intake & Output 08/09/17 08/10/17 08/11/17 06:59 06:59 06:59 Intake Total 1080 767 Output Total 500 300 Balance 580 467 Weight 130.9 kg 131.2 kg General appearance: PRESENT: no acute distress, morbidly obese, well-developed, well-nourished Head exam: PRESENT: atraumatic, normocephalic Eye exam: PRESENT: conjunctiva pink, EOMI, PERRLA. ABSENT: scleral icterus Ear exam: PRESENT: normal external ear exam Mouth exam: PRESENT: moist, tongue midline Neck exam: ABSENT: carotid bruit, JVD, lymphadenopathy, thyromegaly Respiratory exam: PRESENT: clear to auscultation tami. ABSENT: rales, rhonchi, wheezes Cardiovascular exam: PRESENT: RRR. ABSENT: diastolic murmur, rubs, systolic murmur Pulses: PRESENT: normal dorsalis pedis pul Vascular exam: PRESENT: normal capillary refill GI/Abdominal exam: PRESENT: normal bowel sounds, soft. ABSENT: distended, guarding, mass, organolmegaly, rebound, tenderness Rectal exam: PRESENT: deferred Extremities exam: PRESENT: full ROM. ABSENT: calf tenderness, clubbing, pedal edema Neurological exam: PRESENT: alert, awake, oriented to person, oriented to place , oriented to time, oriented to situation, CN II-XII grossly intact. ABSENT: motor sensory deficit Psychiatric exam: PRESENT: appropriate affect, normal mood. ABSENT: homicidal ideation, suicidal ideation Skin exam: PRESENT: dry, intact, warm. ABSENT: cyanosis, rash Results Laboratory Results: 08/07/17 04:20 08/07/17 04:20 Impressions: Chest X-Ray 08/06/17 02:27 IMPRESSION: Mixed interstitial and airspace opacity with new/worsened left lower lobar opacity/effusion. Recommend CR/CT surveillance including at 7-12 weeks following initiation of clinically warranted therapy. Qualifiers - * PATIENT BEING DISCHARGED WITH ANY OF THE FOLLOWING DIAGNOSIS: Heart Failure HF Pt being discharged on ACEI for LVEF less than 40%?: Yes HF Pt being discharged on ARBS for LVEF less than 40%?: No Reason(s) for not prescribing ARBS:: Not indicated HF Pt with Afib discharged with Warfarin?: Yes HF Pt discharged on evidence-based Beta Sabrina:: Yes Plan Time Spent: Greater than 30 Minutes
[2017-08-10 15:19] VITALS: BP 121/62
== END 2017-08-10 15:46 | disposition home or self-care (01) | DRG 292 ==
LOC: ER 02:10 → INTOOBSV 05:37 → EH 05:37 → 5 06:44 → OBSVTOIN 11:30
PROVIDERS: ADMIT Internal Medicine; ATTEND Internal Medicine
DX: I11.0 Hypertensive heart disease with heart failure (principal); Z68.42 Body mass index [BMI] 45.0-49.9, adult; I50.23 Acute on chronic systolic (congestive) heart failure; I48.91 Unspecified atrial fibrillation; J44.9 Chronic obstructive pulmonary disease, unspecified; G47.33 Obstructive sleep apnea (adult) (pediatric); E66.01 Morbid (severe) obesity due to excess calories; Z79.01 Long term (current) use of anticoagulants; Z95.0 Presence of cardiac pacemaker
CPT/HCPCS: 36415; 71045; 80048; 80053; 81001; 82550; 82553; 83735; 83880; 84443; 84484; 85025; 85610; 93005; 93010; 94640; 94660; 94667; 94668; 94762; 94799; 99291; G0378; J1940; J3490; J7620

== ENCOUNTER 2017-12-12 09:29 | Emergency (ER) | payer MEDICAID, MEDICARE, OTHER ==
[2017-12-12] MEDS ORDERED: FUROSEMIDE INJ/PF 40 MG/4 ML SDV IV ONE (09:55)
--- NOTE | 2017-12-12 09:59 | EKG REPORT ---
SEVERITY:- ABNORMAL ECG - A-FLUTTER/FIBRILLATION WITH JUNCTIONAL ESCAPE VS VENTRICULAR PACED BEATS NONSPECIFIC IVCD WITH LAD LEFT VENTRICULAR HYPERTROPHY EXTENSIVE ANTERIOR INFARCT, POSSIBLY ACUTE : Confirmed by: Nona Burris 12-Dec-2017 09:58:59
[2017-12-12 10:17] LABS: ABSOLUTE BASOPHILS # (AUTO) 0.1 10^3/uL (0.0-0.2); ABSOLUTE EOSINOPHILS # (AUTO) 0.6 10^3/uL (0.0-0.6); ABSOLUTE LYMPHOCYTES (AUTO) 1.5 10^3/uL (0.5-4.7); ABSOLUTE MONOCYTES (AUTO) 0.9 10^3/uL (0.1-1.4); ABSOLUTE NEUT (AUTO) 7.2 10^3/uL (1.7-8.2); BASOPHILS % (AUTO) 0.8 % (0-2); EOSINOPHILS % (AUTO) 5.7 % (0-6); HEMATOCRIT 41.5 % (37.9-51.0); LYMPHOCYTES % (AUTO) 14.3 % (13-45); MEAN CORPUSCULAR HEMOGLOBIN 29.4 pg (27.0-33.4); MEAN CORPUSCULAR HGB CONC 33.7 g/dL (32.0-36.0); MEAN CORPUSCULAR VOLUME 87 fl (80-97); MONOCYTES % (AUTO) 8.4 % (3-13); PLATELET COUNT 255 10^3/uL (150-450); RED BLOOD COUNT 4.75 10^6/uL (4.35-5.55); RED CELL DISTRIBUTION WIDTH 15.4 % (11.5-14.0); SEGMENTED NEUTROPHILS % (AUTO) 70.8 % (42-78); TOTAL CELLS COUNTED % (AUTO) 100 %; WHITE BLOOD COUNT 10.2 10^3/uL (4.0-10.5)
--- NOTE | 2017-12-12 10:21 | RADIOLOGY REPORT (SQ) ---
EXAM DESCRIPTION: CHEST SINGLE VIEW COMPLETED DATE/TIME: 12/12/2017 10:06 am REASON FOR STUDY: sob COMPARISON: 06/19/2017 and earlier EXAM PARAMETERS: NUMBER OF VIEWS: One view. TECHNIQUE: Single frontal radiographic view of the chest acquired. RADIATION DOSE: NA LIMITATIONS: None. FINDINGS: LUNGS AND PLEURA: Small bibasilar opacities with associated blunting of the costophrenic a ngles. No pneumothorax. MEDIASTINUM AND HILAR STRUCTURES: No masses. Contour normal. HEART AND VASCULAR STRUCTURES: Unchanged mild cardiomegaly. Central pulmonary vasculature is indisti nct. BONES: Old left-sided rib fractures. HARDWARE: None in the chest. OTHER: No other significant finding. IMPRESSION: 1. Cardiomegaly with mild pulmonary vascular congestion and trace bilateral pleural effusions. 2. Small bibasilar opacities which may represent atelectasis, pneumonia, are component of pulmonary e bonnie. TECHNICAL DOCUMENTATION: JOB ID: [id number] [employer]- All Rights Reserved Reading location - IP/workstation name: [email or web address]
--- NOTE | 2017-12-12 10:29 | ER Document Report ---
ED General - General Mode of Arrival: Ambulatory Information source: Patient TRAVEL OUTSIDE OF THE [place] IN LAST 30 DAYS: No <EVELIN WEBSTER - Last Filed: 12/12/17 10:46> <SHIKHA KING - Last Filed: 12/12/17 15:30> - General Chief Complaint: Shortness Of Breath Stated Complaint: SHORTNESS OF BREATH Time Seen by Provider: 12/12/17 09:42 Notes: 67-year-old male who presents to the emergency department today with complaints of shortness of breath for the last 3 days. Patient mentions that 2 months ago he was taken off Lasix and he is unsure if this is related to his shortness of breath or not. Patient states he is also noticed lower extremity swelling for the past 2 days. (EVELIN WEBSTER) The patient did contact his nurse practitioner, who sent in prescription yesterday for Lasix 20 mg twice a daily and potassium. 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 ( SHIKHA KING) - Related Data Allergies/Adverse Reactions: Penicillins Allergy (Verified 08/06/17 09:42) "cholesterol medicines" Allergy (Uncoded 08/06/17 09:42) Past Medical History - General Information source: Patient - Social History Smoking Status: Former Smoker Frequency of alcohol use: None Drug Abuse: None Lives with: Family Family History: Reviewed & Not Pertinent, Hypertension - Past Medical History Cardiac Medical History: Reports: Hx Atrial Fibrillation, Hx Hypertension Pulmonary Medical History: Reports: Hx Bronchitis, Hx COPD, Hx Sleep Apnea Neurological Medical History: Reports: Hx Seizures Psychiatric Medical History: Reports: Hx Schizoaffective Disorder Past Surgical History: Reports: Hx Cardiac Surgery - Pacemaker, Hx Neurologic Surgery - as a child for seizures - has not had seizures since that time., Hx Pacemaker - Pacemaker however not noted on chest x-ray., Other - brain surgery - Immunizations Immunizations up to date: Yes Hx Diphtheria, Pertussis, Tetanus Vaccination: No <EVELIN WEBSTER - Last Filed: 12/12/17 10:46> Review of Systems - Review of Systems Constitutional: No symptoms reported EENT: No symptoms reported Cardiovascular: No symptoms reported Respiratory: See HPI, Short of breath Gastrointestinal: No symptoms reported Genitourinary: No symptoms reported Male Genitourinary: No symptoms reported Musculoskeletal: See HPI, Other - lower extremity swelling Skin: No symptoms reported Hematologic/Lymphatic: No symptoms reported Neurological/Psychological: No symptoms reported -: Yes All other systems reviewed and negative <EVELIN WEBSTER - Last Filed: 12/12/17 10:46> Physical Exam <EVELIN WEBSTER - Last Filed: 12/12/17 10:46> <SHIKHA KING - Last Filed: 12/12/17 15:30> - Vital signs Vitals: Temp Pulse Resp BP Pulse Ox 98.3 F 95 26 H 182/143 H 85 L 12/12/17 09:34 12/12/17 09:34 12/12/17 09:34 12/12/17 09:34 12/12/17 09:34 - Notes Notes: Physical Exam: General: Alert, appears well. HEENT: Normocephalic. Atraumatic. PERRL. Extraocular movements intact. Oropharynx clear. Neck: Supple. Non-tender. Respiratory: Tachypneic. Rales at the bases bilaterally, saturating 94-96% on room air. Cardiovascular: Irregularly irregular. Abdominal: Obese. Non-tender. No distension. Normal Bowel Sounds. Back: Non-tender. No deformity or step off. Extremities: Moves all four extremities. Upper extremities: Normal inspection. Normal ROM. Lower extremities: Normal inspection. No edema. Normal ROM. Neurological: Normal cognition. AAOx4. Normal speech. Psychological: Normal affect. Normal Mood. Skin: Warm. Dry. Normal color. (DARINJERRODEVELIN) Course - Laboratory Result Diagrams: 12/12/17 09:52 12/12/17 09:52 <EVELIN WEBSTER - Last Filed: 12/12/17 10:46> - Laboratory Result Diagrams: 12/12/17 09:52 12/12/17 09:52 - Diagnostic Test Radiology reviewed: Image reviewed, Reports reviewed - Chest x-ray shows enlarged heart with pulmonary vascular congestion - EKG Interpretation by Md EKG shows normal: [place], Intervals, QRS Complexes, ST-T Waves Rate: Normal - 64 Rhythm: A.Fib, A.Flutter Hardin/QRS: Left axis deviation. No: IVCD Voltage: Consistant with LVH When compared to previous EKG there are: No significant change <SHIKHA KING - Last Filed: 12/12/17 15:30> - Re-evaluation Re-evalutation: 12/12/17 12:50 The patient has urinated a little over 1.5 L at this point and notes that his breathing does feel better. 12/12/17 14:58 At this time the patient was oxygen saturation on room air goes between 88 and 94%. Reviewing records shows that previous visits for nonrespiratory issues shows a baseline room air pulse oximetry reading of about 91%. 12/12/17 15:25 The patient was walked up and down the hallway with pulse oximetry on and was able to maintain his pulse oximetry readings at or above his baseline. He states that his breathing felt fine during this activity. (SHIKHA KING) - Vital Signs Vital signs: Temp Pulse Resp BP Pulse Ox 98.3 F 95 20 139/99 H 95 12/12/17 09:34 12/12/17 09:34 12/12/17 13:58 12/12/17 13:58 12/12/17 13:31 - Laboratory Laboratory results interpreted by me: 12/12/17 12/12/17 12/12/17 09:52 09:52 09:52 RDW 15.4 H ALT 20 L NT-Pro-B Natriuret Pep 1350 H Discharge <EVELIN WEBSTER - Last Filed: 12/12/17 10:46> <SHIKHA KING - Last Filed: 12/12/17 15:30> - Discharge Clinical Impression: Chronic systolic CHF (congestive heart failure), Hypoxia, Pulmonary vascular congestion Dyspnea Qualifiers: Dyspnea type: unspecified Qualified Code(s): R06.00 - Dyspnea, unspecified Condition: Stable Disposition: HOME, SELF-CARE Additional Instructions: Congestive Heart Failure You have been diagnosed as having congestive heart failure (CHF). CHF occurs when the heart is unable to pump blood efficiently, leading to fluid buildup in the veins and lungs. Typical symptoms are swelling of the legs, shortness of breath on minor exertion, and fatigue. CHF is treated with salt restriction, medicine to eliminate excess water and salt from the body, and medication to help the heart contract more efficiently. Eliminate added salt and salty foods in your diet. Decrease your activity until excess fluid has been eliminated. It will also be helpful to raise the head of your bed so you can sleep more easily. Keep a daily record of your weight. This will help your physician monitor your progress. Once extra water has been eliminated, light aerobic exercise daily -- such as walking -- will be helpful (unless your physician has told you to restrict activity for other reasons). Be sure to follow up with the physician as instructed. Contact the doctor at once if you worsen in any way. Be sure to get your medication from the pharmacy that was prescribed by your doctor yesterday. Elevate your feet as much as possible to help reduce the swelling. Do not take the potassium that was prescribed by your doctor for the next 1-2 days. Follow-up with your doctor this week for recheck and reevaluation of your medications. RETURN TO THE EMERGENCY ROOM IF ANY NEW OR WORSENING SYMPTOMS. Referrals: [facility] FNP [Primary Care Provider] - Follow up as needed Ludivinaiblouisa Attestation: 12/12/17 15:27 I personally performed the services described in the documentation, reviewed and edited the documentation which was dictated to the scribe in my presence, and it accurately records my words and actions. (SHIKHA KING) Scribe Documentation - Scribe Written by Rajeev:: Rajeev Sevilla, 12/12/2017 1059 acting as scribe for :: Eloy <EVELIN WEBSTER - Last Filed: 12/12/17 10:46>
[2017-12-12 10:33] LABS: ALANINE AMINOTRANSFERASE 20 U/L (21-72); ALBUMIN 4.1 g/dL (3.5-5.0); ALKALINE PHOSPHATASE 84 U/L (38-126); ANION GAP 13 (5-19); ASPARTATE AMINO TRANSFERASE 22 U/L (17-59); BILIRUBIN,DIRECT 0.3 mg/dL (0.0-0.4); BLOOD UREA NITROGEN 18 mg/dL (7-20); CALCIUM 9.1 mg/dL (8.4-10.2); CARBON DIOXIDE 26 mmol/L (22-30); CHLORIDE 102 mmol/L (98-107); CREATINE KINASE 78 U/L (55-170); GLUCOSE 94 mg/dL (75-110); POTASSIUM 4.7 mmol/L (3.6-5.0); SODIUM 141.1 mmol/L (137-145)
[2017-12-12 10:45] LABS: NT PRO BNP 1350 pg/mL (5-900)
[2017-12-12 10:47] LABS: TROPONIN I < 0.012 ng/mL
[2017-12-12 11:28] LABS: APPEARANCE,URINE CLEAR; BILIRUBIN,URINE NEGATIVE (NEGATIVE); COLOR,URINE COLORLESS; GLUCOSE, URINE NEGATIVE (NEGATIVE); KETONES,URINE NEGATIVE (NEGATIVE); LEUKOCYTE ESTERASE,URINE NEGATIVE (NEGATIVE); NITRITE,URINE NEGATIVE (NEGATIVE); PROTEIN,URINE NEGATIVE (NEGATIVE); URINE SPECIFIC GRAVITY 1.006; UROBILINOGEN,URINE NEGATIVE mg/dL (<2.0)
[2017-12-12] MEDS ORDERED: ALBUTEROL SULFATE HFA (90 MCG/PUFF) 8 GM MDI (1 MDI/ER DISP) IH ONE (15:33)
[2017-12-12 16:12] VITALS: BP 142/98
== END 2017-12-12 15:50 | disposition home or self-care (01) ==
LOC: ER 09:29
DX: I11.0 Hypertensive heart disease with heart failure (principal); I50.22 Chronic systolic (congestive) heart failure; J44.9 Chronic obstructive pulmonary disease, unspecified; R09.02 Hypoxemia; I48.92 Unspecified atrial flutter; I48.91 Unspecified atrial fibrillation; Z88.0 Allergy status to penicillin; Z88.8 Allergy status to other drugs, medicaments and biological substances; Z87.891 Personal history of nicotine dependence
CPT/HCPCS: 93005; 99285; 96374; 36415; 82553; 82550; 85025; 80053; 81001; 84484; 83880; 71045; 93010; J1940; J3490

== ENCOUNTER 2017-12-15 09:01 | Inpatient (IN) | payer MEDICARE ==
[2017-12-15] MEDS ORDERED: ASPIRIN 81 MG TABLET, CHEWABLE PO ONE (09:24)
[2017-12-15] MEDS ORDERED: FUROSEMIDE INJ/PF 40 MG/4 ML SDV IV ONE (09:25)
--- NOTE | 2017-12-15 09:31 | ER Document Report ---
ED General - General Chief Complaint: Breathing Difficulty Stated Complaint: DIFFICULTY BREATHING Time Seen by Provider: 12/15/17 09:18 Mode of Arrival: Ambulatory Information source: Patient Notes: 67-year-old male with a history of A. fib, COPD and CHF presents emergency department with complaints of shortness of breath. Patient was seen in the emergency department 2 days ago for similar. He was diagnosed with congestive heart failure and discharged on Lasix. Patient states that he has been taking the Lasix as directed but his shortness of breath has been worsening. Patient states that he is on CPAP at night. Not on NC. Patient denies any chest pain. TRAVEL OUTSIDE OF THE [place] IN LAST 30 DAYS: No - HPI Onset: Other - 2 days Onset/Duration: Gradual Quality of pain: No pain Associated symptoms: None Exacerbated by: Denies Relieved by: Denies Similar symptoms previously: Yes Recently seen / treated by doctor: Yes - Related Data Allergies/Adverse Reactions: Penicillins Allergy (Verified 12/15/17 09:08) "cholesterol medicines" Allergy (Uncoded 12/15/17 09:08) Past Medical History - General Information source: Patient - Social History Smoking Status: Former Smoker Family History: Reviewed & Not Pertinent, Hypertension - Past Medical History Cardiac Medical History: Reports: Hx Atrial Fibrillation, Hx Hypertension Denies: Hx DVT Pulmonary Medical History: Reports: Hx Bronchitis, Hx COPD, Hx Sleep Apnea Neurological Medical History: Reports: Hx Seizures Renal/ Medical History: Denies: Hx Peritoneal Dialysis Psychiatric Medical History: Reports: Hx Schizoaffective Disorder Denies: Hx Depression Past Surgical History: Reports: Hx Cardiac Surgery - Pacemaker, Hx Neurologic Surgery - as a child for seizures - has not had seizures since that time., Hx Pacemaker - Pacemaker however not noted on chest x-ray., Other - brain surgery - Immunizations Immunizations up to date: Yes Hx Diphtheria, Pertussis, Tetanus Vaccination: No Review of Systems - Review of Systems Constitutional: No symptoms reported EENT: No symptoms reported Cardiovascular: No symptoms reported Respiratory: Short of breath Gastrointestinal: No symptoms reported Genitourinary: No symptoms reported Male Genitourinary: No symptoms reported Musculoskeletal: No symptoms reported Skin: No symptoms reported Hematologic/Lymphatic: No symptoms reported Neurological/Psychological: No symptoms reported -: Yes All other systems reviewed and negative Physical Exam - Vital signs Vitals: Temp Resp BP Pulse Ox 97.9 F 20 167/94 H 74 L 12/15/17 09:08 12/15/17 09:08 12/15/17 09:08 12/15/17 09:08 - General Notes: PHYSICAL EXAMINATION: GENERAL: Well-appearing, well-nourished and in no acute distress. HEAD: Atraumatic, normocephalic. EYES: Pupils equal round and reactive to light, extraocular movements intact, sclera anicteric, conjunctiva are normal. ENT: Nares patent, oropharynx clear without exudates. Moist mucous membranes. NECK: Normal range of motion, supple without lymphadenopathy LUNGS: Breath sounds clear to auscultation bilaterally and equal. No wheezes rales or rhonchi. HEART: Regular rate and rhythm without murmurs ABDOMEN: Soft, nontender, nondistended abdomen. No guarding, no rebound. No masses appreciated. Musculoskeletal: Normal range of motion. 1+ pitting edema. No cyanosis. No calf tenderness to palpation. NEUROLOGICAL: Cranial nerves grossly intact. Normal speech, normal gait. Normal sensory, motor exams PSYCH: Normal mood, normal affect. SKIN: Warm, Dry, normal turgor, no rashes or lesions noted. Course - Re-evaluation Re-evalutation: 12/15/17 09:28 EKG: Atrial fibrillation. Rate 83, QRS duration 142, QTc 503. 12/15/17 11:20 Patient had initial O2 saturation at 78% on RA. Started on Nasal canula. Patient was saturating at 92% on 8L. He said he still felt short of breath. Bipap started. Nitro drip ordered for CHF. Workup obtained. BNP is increasing. Chest x-ray shows increasing vascular congestion. Patient is currently on Xarelto for his atrial fibrillation. No CTA chest ordered. I will admit the patient to the hospitalist for CHF exacerbation. Patient is currently stable. - Vital Signs Vital signs: Temp Pulse Resp BP Pulse Ox 97.9 F 22 H 170/90 H 96 12/15/17 09:08 12/15/17 10:41 12/15/17 11:08 12/15/17 10:46 - Laboratory Result Diagrams: 12/15/17 09:11 12/15/17 09:11 Laboratory results interpreted by me: 12/15/17 12/15/17 12/15/17 09:11 09:11 09:11 WBC 11.6 H RDW 15.2 H Seg Neutrophils % 78.5 H Lymphocytes % 10.8 L Absolute Neutrophils 9.1 H Carbonic Acid ABG pCO2 ABG pO2 ABG HCO3 ABG Total CO2 ABG O2 Saturation Carbon Dioxide 31 H BUN 22 H Glucose 147 H ALT 16 L NT-Pro-B Natriuret Pep 1660 H 12/15/17 09:39 WBC RDW Seg Neutrophils % Lymphocytes % Absolute Neutrophils Carbonic Acid 1.86 H ABG pCO2 61.7 H ABG pO2 57.6 L ABG HCO3 34.2 H ABG Total CO2 36.0 H ABG O2 Saturation 88.2 L Carbon Dioxide BUN Glucose ALT NT-Pro-B Natriuret Pep Discharge - Discharge Clinical Impression: Acute exacerbation of CHF (congestive heart failure) Qualifiers: Heart failure type: unspecified Qualified Code(s): I50.9 - Heart failure, unspecified Condition: Stable Disposition: ADMITTED INPATIENT Admitting Provider: Hospitalist Unit Admitted: ICU Referrals: [facility] FNP [Primary Care Provider] - Follow up as needed
[2017-12-15] MEDS ORDERED: NITROGLYCERIN/D5W 50 MG/250 ML RTUINJ IV PRN (09:34)
[2017-12-15 09:49] LABS: ABSOLUTE BASOPHILS # (AUTO) 0.1 10^3/uL (0.0-0.2); ABSOLUTE EOSINOPHILS # (AUTO) 0.4 10^3/uL (0.0-0.6); ABSOLUTE LYMPHOCYTES (AUTO) 1.2 10^3/uL (0.5-4.7); ABSOLUTE MONOCYTES (AUTO) 0.8 10^3/uL (0.1-1.4); ABSOLUTE NEUT (AUTO) 9.1 10^3/uL (1.7-8.2); BASOPHILS % (AUTO) 0.5 % (0-2); EOSINOPHILS % (AUTO) 3.5 % (0-6); HEMATOCRIT 43.7 % (37.9-51.0); HEMOGLOBIN 14.3 g/dL (13.5-17.0); LYMPHOCYTES % (AUTO) 10.8 % (13-45); MEAN CORPUSCULAR HGB CONC 32.7 g/dL (32.0-36.0); MEAN CORPUSCULAR VOLUME 89 fl (80-97); MONOCYTES % (AUTO) 6.7 % (3-13); PLATELET COUNT 260 10^3/uL (150-450); RED BLOOD COUNT 4.92 10^6/uL (4.35-5.55); RED CELL DISTRIBUTION WIDTH 15.2 % (11.5-14.0); SEGMENTED NEUTROPHILS % (AUTO) 78.5 % (42-78); TOTAL CELLS COUNTED % (AUTO) 100 %; WHITE BLOOD COUNT 11.6 10^3/uL (4.0-10.5)
[2017-12-15 09:56] LABS: ARTERIAL BLOOD BASE EXCESS 6.6 mmol/L; ARTERIAL BLOOD FIO2 6L; ARTERIAL BLOOD H2CO3 1.86 mmol/L (1.05-1.35); ARTERIAL BLOOD HCO3 34.2 mmol/L (20-24); ARTERIAL BLOOD O2 SATURATION 88.2 % (94-98); ARTERIAL BLOOD PCO2 61.7 mmHg (35-45); ARTERIAL BLOOD PH 7.36 (7.35-7.45); ARTERIAL BLOOD PO2 57.6 mmHg (80-100)
[2017-12-15 09:59] LABS: ALANINE AMINOTRANSFERASE 16 U/L (21-72); ALBUMIN 4.3 g/dL (3.5-5.0); ALKALINE PHOSPHATASE 78 U/L (38-126); ANION GAP 15 (5-19); ASPARTATE AMINO TRANSFERASE 27 U/L (17-59); BILIRUBIN,DIRECT 0.2 mg/dL (0.0-0.4); BILIRUBIN,TOTAL 0.8 mg/dL (0.2-1.3); BLOOD UREA NITROGEN 22 mg/dL (7-20); CALCIUM 9.3 mg/dL (8.4-10.2); CARBON DIOXIDE 31 mmol/L (22-30); CHLORIDE 99 mmol/L (98-107); GLUCOSE 147 mg/dL (75-110); POTASSIUM 4.5 mmol/L (3.6-5.0); SODIUM 144.7 mmol/L (137-145); TOTAL PROTEIN 7.3 g/dL (6.3-8.2)
[2017-12-15 10:11] LABS: NT PRO BNP 1660 pg/mL (5-900)
[2017-12-15 10:12] LABS: TROPONIN I < 0.012 ng/mL
--- NOTE | 2017-12-15 10:26 | RADIOLOGY REPORT (SQ) ---
EXAM DESCRIPTION: CHEST SINGLE VIEW COMPLETED DATE/TIME: 12/15/2017 10:14 am REASON FOR STUDY: shortness of breath COMPARISON: 12/12/2017 EXAM PARAMETERS: NUMBER OF VIEWS: One view. TECHNIQUE: Single frontal radiographic view of the chest acquired. RADIATION DOSE: NA LIMITATIONS: None. FINDINGS: LUNGS AND PLEURA: There is increasing bilateral interstitial airspace disease. Small effu sions are present. MEDIASTINUM AND HILAR STRUCTURES: No masses. Contour normal. HEART AND VASCULAR STRUCTURES: Heart is enlarged with central vascular prominence. BONES: No acute findings. HARDWARE: None in the chest. OTHER: No other significant finding. IMPRESSION: Cardiomegaly and increasing vascular congestion. TECHNICAL DOCUMENTATION: JOB ID: [id number] [employer] All Rights Reserved Reading location - IP/workstation name: [email or web address]
--- NOTE | 2017-12-15 12:35 | PDOC H&P ---
History of Present Illness Admission Date/PCP: SUMMER CONTRERAS Patient complains of: Dyspnea on exertion. History of Present Illness: YARELI LIMON III is a 67 year old male history of A. fib on chronic anticoagulation, COPD due to chronic smoking on nocturnal home oxygen, CHF diastolic heart failure based on echo on 03/2017, hypertension epilepsy status post brain surgery in 1992 currently not on antiseizure meds, patient also mentions that he has a pacemaker placed but cannot provide further details. Last admission here at [facility] was on 08/04/2017 and discharge 08/11/2017. He was admitted for shortness of breath due to acute respiratory failure secondary to CHF exacerbation. He was also treated for underlying COPD exacerbation with bronchodilators antibiotics and steroids. He was discharged on home O2 and was asked to follow-up with a imaging aide as outpatient. She remained hemodynamically stable throughout hospitalization. He presented to ED complaining of worsening shortness of breath exertion, orthopnea, dry nonproductive cough. He was here seen at [facility] 2 days prior to this visit with complaints he was diagnosed with CHF exacerbation and was discharged on Lasix. Patient stated he is been taking his Lasix however his shortness of breath has been increasing. Obstructive sleep apnea and using CPAP at night. Also mentions that he used to be on diuretics but it was stopped by his primary physician who is a nurse practitioner. In ED and ABG was done which was of hypoxic respiratory failure with hypercarbia and elevated BNP. He was placed on nitro drip and hospital was consulted for admission. Past Medical History Cardiac Medical History: Reports: Atrial Fibrillation, Congestive Heart Failure , Hypertension Denies: DVT Pulmonary Medical History: Reports: Bronchitis, Chronic Obstructive Pulmonary Disease (COPD), Sleep Apnea Neurological Medical History: Reports: Seizures Psychiatric Medical History: Reports: Schizoaffective Disorder Denies: Depression Past Surgical History Past Surgical History: Reports: Pacemaker - Pacemaker however not noted on chest x-ray., Other - brain surgery Social History Smoking Status: Former Smoker Frequency of Alcohol Use: None Hx Recreational Drug Use: No Drugs: None Hx Prescription Drug Abuse: No Family History Family History: Reviewed & Not Pertinent, Hypertension Parental Family History Reviewed: Yes Children Family History Reviewed: Yes Sibling(s) Family History Reviewed.: Yes Medication/Allergy Home Medications: Furosemide [Lasix 20 mg Tablet] 20 mg PO QAM 12/15/17 Lisinopril [Prinivil] 20 mg PO DAILY 12/15/17 Metoprolol Succinate [Toprol Xl] 50 mg PO Q12 12/15/17 Potassium Chloride [Klor-Con 10 Meq Capsule ER] 20 meq PO DAILY 12/15/17 Rivaroxaban [Xarelto] 20 mg PO QPM 12/15/17 Allergies/Adverse Reactions: Penicillins Allergy (Verified 12/15/17 09:08) "cholesterol medicines" Allergy (Uncoded 12/15/17 09:08) Review of Systems Review of Systems: As per HPI Physical Exam Vital Signs: Temp Pulse Resp BP Pulse Ox 97.9 F 22 H 160/90 H 96 12/15/17 09:08 12/15/17 10:41 12/15/17 11:26 12/15/17 10:46 Intake & Output 12/14/17 12/15/17 12/16/17 06:59 06:59 06:59 Intake Total 7 Balance 7 Weight 135.6 kg General appearance: PRESENT: no acute distress, morbidly obese Head exam: PRESENT: atraumatic, normocephalic Neck exam: ABSENT: carotid bruit, JVD, lymphadenopathy, thyromegaly Respiratory exam: PRESENT: clear to auscultation tami, tachypnea, other - She is receiving BiPAP treatment during my examination.. ABSENT: rales, rhonchi, wheezes Cardiovascular exam: PRESENT: RRR. ABSENT: diastolic murmur, rubs, systolic murmur Pulses: PRESENT: normal dorsalis pedis pul GI/Abdominal exam: PRESENT: distended, normal bowel sounds, soft. ABSENT: guarding, mass, organolmegaly, rebound, tenderness Extremities exam: PRESENT: full ROM. ABSENT: calf tenderness, clubbing, pedal edema Neurological exam: PRESENT: alert, awake, oriented to person, oriented to place , oriented to time, oriented to situation, CN II-XII grossly intact. ABSENT: motor sensory deficit Results Laboratory Results: 12/15/17 09:11 12/15/17 09:11 12/15/17 12/15/17 12/15/17 09:11 09:11 09:11 WBC 11.6 H RBC 4.92 Hgb 14.3 Hct 43.7 MCV 89 MCH 29.0 MCHC 32.7 RDW 15.2 H Plt Count 260 Seg Neutrophils % 78.5 H Lymphocytes % 10.8 L Monocytes % 6.7 Eosinophils % 3.5 Basophils % 0.5 Absolute Neutrophils 9.1 H Absolute Lymphocytes 1.2 Absolute Monocytes 0.8 Absolute Eosinophils 0.4 Absolute Basophils 0.1 Carbonic Acid HCO3/H2CO3 Ratio ABG pH ABG pCO2 ABG pO2 ABG HCO3 ABG O2 Saturation ABG Base Excess FiO2 Sodium 144.7 Potassium 4.5 Chloride 99 Carbon Dioxide 31 H Anion Gap 15 BUN 22 H Creatinine 1.02 Est GFR ( Amer) > 60 Est GFR (Non-Af Amer) > 60 Glucose 147 H Lactic Acid 2.1 Calcium 9.3 Total Bilirubin 0.8 AST 27 ALT 16 L Alkaline Phosphatase 78 Total Protein 7.3 Albumin 4.3 12/15/17 09:39 WBC RBC Hgb Hct MCV MCH MCHC RDW Plt Count Seg Neutrophils % Lymphocytes % Monocytes % Eosinophils % Basophils % Absolute Neutrophils Absolute Lymphocytes Absolute Monocytes Absolute Eosinophils Absolute Basophils Carbonic Acid 1.86 H HCO3/H2CO3 Ratio 18:1 ABG pH 7.36 ABG pCO2 61.7 H ABG pO2 57.6 L ABG HCO3 34.2 H ABG O2 Saturation 88.2 L ABG Base Excess 6.6 FiO2 6L Sodium Potassium Chloride Carbon Dioxide Anion Gap BUN Creatinine Est GFR ( Amer) Est GFR (Non-Af Amer) Glucose Lactic Acid Calcium Total Bilirubin AST ALT Alkaline Phosphatase Total Protein Albumin 12/15/17 09:11 Troponin I < 0.012 NT-Pro-B Natriuret Pep 1660 H Impressions: Chest X-Ray 12/15/17 09:24 IMPRESSION: Cardiomegaly and increasing vascular congestion. Assessment & Plan - Diagnosis (1) Acute respiratory failure with hypoxia and hypercapnia Is this a current diagnosis for this admission?: Yes Plan: Likely due to CHF exacerbation caused by medication noncompliance and COPD exacerbation. Elevated BNP, negative troponins. Continue diuresis, strict in and out, fluid restriction, daily weights. Will obtain CTA as patient has history of chronic A. fib and also history of noncompliance rule out PE. Continue as needed DuoNeb, BiPAP , empiric antibiotics, steroids, AMY/LABA Follow blood culture, sputum culture. (2) HTN (hypertension) Is this a current diagnosis for this admission?: Yes Plan: Normotensive at the moment. Continue Lasix. Restart home meds once clinically appropriate. Monitor vitals (3) Chronic atrial fibrillation Is this a current diagnosis for this admission?: No Plan: Rate controlled. On Xarelto. Restart Xarelto. (4) Acute exacerbation of CHF (congestive heart failure) Qualifiers: Heart failure type: diastolic Qualified Code(s): I50.33 - Acute on chronic diastolic (congestive) heart failure Is this a current diagnosis for this admission?: Yes Plan: Likely due to medication noncompliance. 2D echo. Continue Lasix. Start DARWIN, beta-neto at a lower dosage. Up titrate beta-blockers as tolerated. Strict in and out, fluid restriction, daily weights, cardiac diet. Follow-up echo. (5) COPD (chronic obstructive pulmonary disease) Qualifiers: COPD type: unspecified COPD Qualified Code(s): J44.9 - Chronic obstructive pulmonary disease, unspecified Is this a current diagnosis for this admission?: Yes Plan: History of chronic smoking. No PFT available. Continue duo nebs as needed, LAMA/AMY scheduled. BiPAP. Empiric antibiotics and steroids. (6) Morbid obesity with BMI of 50.0-59.9, adult Is this a current diagnosis for this admission?: No Plan: Lifestyle and diet modification. (7) Obstructive sleep apnea Is this a current diagnosis for this admission?: Yes Plan: CPAP at night. Outpatient nocturnal polysomnography.
[2017-12-15] MEDS ORDERED: ACETAMINOPHEN 325 MG TABLET PO PRN (12:51)
[2017-12-15] MEDS ORDERED: ONDANSETRON 4 MG TAB.RAPDIS PO PRN (12:51)
[2017-12-15 14:22] LABS: CHOLESTEROL 124.93 mg/dL (0-200); TRIGLYCERIDES 125 mg/dL (<150)
[2017-12-15 14:39] LABS: DIRECT LDL 97 mg/dL (<100)
[2017-12-15] MEDS: IPRATROPIUM/ALBUTEROL 0.5-2.5 MG/3 ML AMPUL NEB SCH ×2 (14:49→20:33)
[2017-12-15] MEDS: DOCUSATE SODIUM 100 MG CAPSULE PO SCH (17:21)
[2017-12-15] MEDS: LISINOPRIL 10 MG TABLET PO SCH (17:22)
[2017-12-15] MEDS: RIVAROXABAN 10 MG TABLET PO SCH (17:22)
[2017-12-15] MEDS: LANSOPRAZOLE 30 MG TAB.RAP.DR PO SCH (17:22)
--- NOTE | 2017-12-15 17:37 | RADIOLOGY REPORT (SQ) ---
EXAM DESCRIPTION: CTA CHEST COMPLETED DATE/TIME: 12/15/2017 5:27 pm REASON FOR STUDY: Difficulty breathing, sob, rule out pe COMPARISON: Chest radiograph TECHNIQUE: CT scan of the chest performed using helical scanning technique with dynamic intravenous contrast injection. Images reviewed with lung, soft tissue and bone windows. Reconstructed coronal and sagittal MPR images reviewed. Additional 3 dimensional post-processing performed to develop Maximal Intensity Projection images (HI P). All images stored on PACS. All CT scanners at this facility use dose modulation, iterative reconstruction, and/or weight based d osing when appropriate to reduce radiation dose to as low as reasonably achievable (ALARA). [facility]: Dose Right [facility]: CareDose [facility]: Dose Right [facility]: Teradose 4D [facility]: AMX CONTRAST TYPE AND DOSE: contrast/concentration: Isovue 350.00 mg/ml; Total Contrast Delivered: 79.0 ml; Total Saline Delivered: 110.0 ml Contrast bolus optimized for the pulmonary arteries. Not diagnostic for the aorta. RENAL FUNCTION: Creatinine 1.02 RADIATION DOSE: CT Rad equipment meets quality standard of care and radiation dose reduction techniq ues were employed. CTDIvol: 15.5 - 30.0 mGy. DLP: 607 mGy-cm. . LIMITATIONS: None. FINDINGS: LUNGS AND PLEURA: Bilateral pleural effusions right greater than left. Basilar opacities. AORTA AND GREAT VESSELS: No aneurysm. Contrast bolus not optimized for the aorta. HEART: No pericardial effusion. Mild coronary artery calcification. PULMONARY ARTERIES: No emboli visualized in the main pulmonary arteries or the segmental branches. HILAR AND MEDIASTINAL STRUCTURES: No identified masses or abnormal nodes. HARDWARE: None in the chest. UPPER ABDOMEN: No significant findings. Limited exam. THYROID AND OTHER SOFT TISSUES: No masses. No adenopathy. BONES: No acute or significant finding. 3D MIPS: Confirm above findings. OTHER: No other significant finding. IMPRESSION: No pulmonary emboli. Bilateral pleural effusions and basilar opacities. COMMENT: Quality ID # [id number]: Final reports with documentation of one or more dose reduction techniques (e.g., Automated exposure control, adjustment of the mA and/or kV according to patient size, use of iterative reconstruction technique) TECHNICAL DOCUMENTATION: JOB ID: [id number] [employer]- All Rights Reserved Reading location - IP/workstation name: [email or web address]
--- NOTE | 2017-12-15 17:52 | XCELERA REPORT ---
[address] [address] Transthoracic Echocardiogram Report Name: YARELI LIMON III Age: 67 yrs Gender: Male : 1950 Patient Status: Inpatient Patient Location: [address] [place], [place] [address] Study Date: 12/15/2017 03:49 PM Height: 67 in Weight: 298 lb BSA: 2.4 m2 Procedure: A two-dimensional transthoracic echocardiogram with color flow Doppler was performed. The study was technically difficult with many images being suboptimal in quality. Reason For Study: CHF exacerbation History: CHF. Ordering Physician: CROW WAYNE Performed By: Ju Carmona Interpretation Summary The left ventricle is normal in size. There is mild concentric left ventricular hypertrophy. LV EF is > than 65% Left ventricular systolic function is normal. Doppler measurements suggest normal left ventricular diastolic function The left ventricular wall motion is normal. There is no thrombus. The right atrium is normal. The left and right artia are mildly dilated There is no mitral valve stenosis. There is a mild amount of mitral regurgitation There is no aortic valve stenosis There is no LVOT obstruction. There is a mild amount of aortic regurgitation There is no tricuspid stenosis. There is a mild to moderate amount of tricuspid regurgitation There is servere pulmonary hypertension by echo RVSP is 61 to 66 mm of Hg , with RA mean of 5 to 10. There is no pulmonic valvular stenosis. There is no pulmonic valvular regurgitation. There is no pericardial effusion. MMode/2D Measurements & Calculations RVDd: 3.7 cm LVIDd: 5.3 cm FS: 32.1 % Ao root diam: 3.3 cm IVSd: 1.2 cm LVIDs: 3.6 cm EDV(Teich): 133.1 ml Ao root area: 8.4 cm2 LVPWd: 1.2 cm ESV(Teich): 53.4 ml LA dimension: 4.7 cm EF(Teich): 59.9 % Doppler Measurements & Calculations MV E max aniceto: MV P1/2t max aniceto: Ao V2 max: AI max aniceto: 125.4 cm/sec 124.9 cm/sec 183.8 cm/sec 486.6 cm/sec MV A max aniceto: MV P1/2t: 53.9 msec Ao max PG: AI max P.4 cm/sec MVA(P1/2t): 4.1 cm2 13.5 mmHg 94.7 mmHg MV E/A: 2.8 MV dec slope: AI dec slope: 260.6 cm/sec2 678.9 cm/sec2 AI P1/2t: MV dec time: 0.17 sec 547.0 msec LV V1 max PG: PA V2 max: TR max aniceto: AV P1/2t-pr_phl: 9.1 mmHg 76.5 cm/sec 371.9 cm/sec 474.6 msec LV V1 max: PA max P.3 mmHg TR max P.0 cm/sec 55.3 mmHg MV P1/2t-pr_phl: 53.9 msec Left Ventricle The left ventricle is normal in size. There is mild concentric left ventricular hypertrophy. LV EF is > than 65%. Left ventricular systolic function is normal. Doppler measurements suggest normal left ventricular diastolic function. The left ventricular wall motion is normal. There is no thrombus. There is no ventricular septal defect visualized. Right Ventricle The right ventricle is mildly dilated. There is a pacemaker lead in the right ventricle. Atria The right atrium is normal. The left and right artia are mildly dilated. The interatrial septum is intact with no evidence for an atrial septal defect. Mitral Valve There is no evidence of mitral valve prolapse. There is no vegetation seen on the mitral valve. There is no mitral valve stenosis. There is a mild amount of mitral regurgitation. Aortic Valve There is no aortic valvular vegetation. There is no aortic valve stenosis. There is no LVOT obstruction. There is a mild amount of aortic regurgitation. Tricuspid Valve There is no tricuspid stenosis. There is a mild to moderate amount of tricuspid regurgitation. There is servere pulmonary hypertension by echo. RVSP is 61 to 66 mm of Hg , with RA mean of 5 to 10. Pulmonic Valve There is no pulmonic valvular stenosis. There is no pulmonic valvular regurgitation. Great Vessels The aortic root is normal size. The inferior vena cava appeared normal and decreased > 50% with respiration (RAP 5-10 mmHg). Effusions There is no pericardial effusion. : CROW WAYNE > Amara Handy
--- NOTE | 2017-12-15 19:21 | EKG REPORT ---
SEVERITY:- ABNORMAL ECG - ATRIAL FIBRILLATION, V-RATE 79-108 NONSPECIFIC IVCD WITH LAD VERSUS V-PACED BEATS : Confirmed by: Amara Handy MD 15-Dec-2017 19:20:48
[2017-12-15] MEDS: FUROSEMIDE INJ/PF 40 MG/4 ML SDV IV SCH (21:34)
[2017-12-15] MEDS: OXYCODONE-ACETAMINOPHEN 5-325 MG TABLET PO PRN (21:43)
[2017-12-15] MEDS: METHYLPREDNISOLONE INJ 40 MG/1 ML SDV IV SCH (21:43)
[2017-12-15] MEDS: ATORVASTATIN CALCIUM 40 MG TABLET PO SCH (21:44)
[2017-12-15] MEDS: METOPROLOL SUCCINATE 50 MG TAB.SR.24H PO SCH (21:44)
[2017-12-15] MEDS: SALMETEROL XINAFOATE DISKUS 50 MCG/1 DOSE 28 DOSE IH SCH (21:46)
[2017-12-16] MEDS: IPRATROPIUM/ALBUTEROL 0.5-2.5 MG/3 ML AMPUL NEB SCH ×4 (02:09→20:00)
[2017-12-16 05:26] LABS: MEAN CORPUSCULAR HEMOGLOBIN 29.4 pg (27.0-33.4); MEAN CORPUSCULAR HGB CONC 33.3 g/dL (32.0-36.0); MEAN CORPUSCULAR VOLUME 88 fl (80-97); PLATELET COUNT 215 10^3/uL (150-450); RED BLOOD COUNT 4.76 10^6/uL (4.35-5.55); RED CELL DISTRIBUTION WIDTH 15.6 % (11.5-14.0); WHITE BLOOD COUNT 11.4 10^3/uL (4.0-10.5)
[2017-12-16 05:47] LABS: ALANINE AMINOTRANSFERASE 18 U/L (21-72); ALBUMIN 4.3 g/dL (3.5-5.0); ALKALINE PHOSPHATASE 89 U/L (38-126); ANION GAP 14 (5-19); ASPARTATE AMINO TRANSFERASE 24 U/L (17-59); BILIRUBIN,DIRECT 0.3 mg/dL (0.0-0.4); BLOOD UREA NITROGEN 22 mg/dL (7-20); CALCIUM 9.3 mg/dL (8.4-10.2); CARBON DIOXIDE 30 mmol/L (22-30); CHLORIDE 98 mmol/L (98-107); GLUCOSE 154 mg/dL (75-110); POTASSIUM 4.8 mmol/L (3.6-5.0); SODIUM 142.3 mmol/L (137-145); TOTAL PROTEIN 7.3 g/dL (6.3-8.2)
[2017-12-16 05:54] LABS: ABSOLUTE LYMPHOCYTES# (MANUAL) 0.5 10^3/uL (0.5-4.7); ABSOLUTE NEUTROPHILS# (MANUAL) 10.9 10^3/uL (1.7-8.2); BASOPHILS % (MANUAL) 0 % (0-2); EOSINOPHILS % (MANUAL) 0 % (0-6); LYMPHOCYTES % (MANUAL) 4 % (13-45); MONOCYTES % (MANUAL) 0 % (3-13); SEGMENTED NEUTROPHILS % (MAN) 96 % (42-78); TOTAL CELLS COUNTED 100
[2017-12-16 05:55] LABS: ANISOCYTOSIS SLIGHT; PLATELET COMMENT ADEQUATE; PLATELET LARGE PRESENT; POIKILOCYTOSIS SLIGHT; POLYCHROMASIA SLIGHT; SCHISTOCYTES SLIGHT; TOXIC GRANULATION 1+
[2017-12-16 06:44] LABS: ARTERIAL BLOOD BASE EXCESS 4.1 mmol/L; ARTERIAL BLOOD O2 SATURATION 94.7 % (94-98); ARTERIAL BLOOD PCO2 49.8 mmHg (35-45); ARTERIAL BLOOD PO2 73.9 mmHg (80-100); ARTERIAL BLOOD TOTAL CO2 31.5 mmol/L (23-27)
[2017-12-16 06:46] LABS: ARTERIAL BLOOD FIO2 35%
[2017-12-16] MEDS: OXYCODONE-ACETAMINOPHEN 5-325 MG TABLET PO PRN (06:49)
[2017-12-16] MEDS: LANSOPRAZOLE 30 MG TAB.RAP.DR PO SCH ×2 (06:50→17:09)
[2017-12-16] MEDS: DOCUSATE SODIUM 100 MG CAPSULE PO SCH ×2 (09:37→17:09)
[2017-12-16] MEDS: METHYLPREDNISOLONE INJ 40 MG/1 ML SDV IV SCH ×2 (09:37→21:23)
[2017-12-16] MEDS: FUROSEMIDE INJ/PF 40 MG/4 ML SDV IV SCH ×2 (09:37→21:22)
[2017-12-16] MEDS: METOPROLOL SUCCINATE 50 MG TAB.SR.24H PO SCH ×2 (09:38→21:24)
[2017-12-16] MEDS: LISINOPRIL 10 MG TABLET PO SCH (09:38)
[2017-12-16] MEDS: SALMETEROL XINAFOATE DISKUS 50 MCG/1 DOSE 28 DOSE IH SCH ×2 (09:38→21:24)
[2017-12-16] MEDS: TIOTROPIUM BROMIDE DPI 5 CAP/KIT (18 MCG/CAP) IH SCH (09:39)
[2017-12-16] MEDS ORDERED: (PENDING PHARMACY ID) (Lisinopril [Prinivil] 20 MG) PO SCH (10:00)
--- NOTE | 2017-12-16 11:41 | PDOC PROGRESS REPORT ---
Subjective Progress Note for:: 12/16/17 Subjective:: YARELI LIMON III is a 67 year old male history of A. fib on chronic anticoagulation, COPD due to chronic smoking on nocturnal home oxygen, CHF diastolic heart failure based on echo on 03/2017, hypertension epilepsy status post brain surgery in 1992 currently not on antiseizure meds, patient also mentions that he has a pacemaker placed but cannot provide further details. Last admission here at [facility] [facility] was on 08/04/2017 and discharge 08/11/2017. He was admitted for shortness of breath due to acute respiratory failure secondary to CHF exacerbation. He was also treated for underlying COPD exacerbation with bronchodilators antibiotics and steroids. He was discharged on home O2 and was asked to follow-up with a surgical orderly as outpatient. She remained hemodynamically stable throughout hospitalization. He presented to ED complaining of worsening shortness of breath exertion, orthopnea, dry nonproductive cough. He was here seen at [facility] 2 days prior to this visit with complaints he was diagnosed with CHF exacerbation and was discharged on Lasix. Patient stated he is been taking his Lasix however his shortness of breath has been increasing. Obstructive sleep apnea and using CPAP at night. Also mentions that he used to be on diuretics but it was stopped by his primary physician who is a nurse practitioner. In ED and ABG was done which was of hypoxic respiratory failure with hypercarbia and elevated BNP. He was placed on nitro drip and hospital was consulted for admission. 12/16/2017. No acute events overnight. On my encounter patient is comfortably resting in his bed while using BiPAP. He is stating that he is feeling much better denies any recurrence of shortness of breath or chest pain. Patient has not have any fever nausea vomiting diarrhea constipation overnight patient has been urinating a lot since admission. Reason For Visit: ACUTE HYPOXIC AND HYPERCAPNIC RESPIRATORY FAILURE Physical Exam Vital Signs: Temp Pulse Resp BP Pulse Ox 98.5 F 59 L 20 119/54 L 95 12/16/17 08:15 12/16/17 08:15 12/16/17 08:15 12/16/17 08:15 12/16/17 08:15 Intake & Output 12/15/17 12/16/17 12/17/17 06:59 06:59 06:59 Intake Total 819 Output Total 800 Balance 19 Weight 135.2 kg General appearance: PRESENT: no acute distress, morbidly obese, well-developed, well-nourished Head exam: PRESENT: atraumatic, normocephalic Eye exam: PRESENT: conjunctiva pink, EOMI, PERRLA. ABSENT: scleral icterus Ear exam: PRESENT: normal external ear exam Mouth exam: PRESENT: moist, tongue midline Neck exam: ABSENT: carotid bruit, JVD, lymphadenopathy, thyromegaly Respiratory exam: PRESENT: clear to auscultation tami. ABSENT: rales, rhonchi, wheezes Cardiovascular exam: PRESENT: RRR. ABSENT: diastolic murmur, rubs, systolic murmur Pulses: PRESENT: normal dorsalis pedis pul Vascular exam: PRESENT: normal capillary refill GI/Abdominal exam: PRESENT: normal bowel sounds, soft. ABSENT: distended, guarding, mass, organolmegaly, rebound, tenderness Rectal exam: PRESENT: deferred Extremities exam: PRESENT: full ROM. ABSENT: calf tenderness, clubbing, pedal edema Neurological exam: PRESENT: alert, awake, oriented to person, oriented to place , oriented to time, oriented to situation, CN II-XII grossly intact. ABSENT: motor sensory deficit Psychiatric exam: PRESENT: appropriate affect, normal mood. ABSENT: homicidal ideation, suicidal ideation Skin exam: PRESENT: dry, intact, warm. ABSENT: cyanosis, rash Results Laboratory Results: 12/16/17 04:20 12/16/17 04:20 12/15/17 12/16/17 12/16/17 15:39 04:20 04:20 WBC 11.4 H RBC 4.76 Hgb 14.0 Hct 42.0 MCV 88 MCH 29.4 MCHC 33.3 RDW 15.6 H Plt Count 215 Seg Neutrophils % Not Reportable Lymphocytes % Not Reportable Monocytes % Not Reportable Eosinophils % Not Reportable Basophils % Not Reportable Absolute Neutrophils Not Reportable Absolute Lymphocytes Not Reportable Absolute Monocytes Not Reportable Absolute Eosinophils Not Reportable Absolute Basophils Not Reportable Carbonic Acid HCO3/H2CO3 Ratio ABG pH ABG pCO2 ABG pO2 ABG HCO3 ABG O2 Saturation ABG Base Excess FiO2 Sodium 142.3 Potassium 4.8 Chloride 98 Carbon Dioxide 30 Anion Gap 14 BUN 22 H Creatinine 0.99 Est GFR ( Amer) > 60 Est GFR (Non-Af Amer) > 60 Glucose 154 H Lactic Acid 1.5 Calcium 9.3 Total Bilirubin 1.0 AST 24 ALT 18 L Alkaline Phosphatase 89 Total Protein 7.3 Albumin 4.3 TSH 12/16/17 12/16/17 04:20 06:35 WBC RBC Hgb Hct MCV MCH MCHC RDW Plt Count Seg Neutrophils % Lymphocytes % Monocytes % Eosinophils % Basophils % Absolute Neutrophils Absolute Lymphocytes Absolute Monocytes Absolute Eosinophils Absolute Basophils Carbonic Acid 1.50 H HCO3/H2CO3 Ratio 20:1 ABG pH 7.40 ABG pCO2 49.8 H ABG pO2 73.9 L ABG HCO3 30.0 H ABG O2 Saturation 94.7 ABG Base Excess 4.1 FiO2 35% Sodium Potassium Chloride Carbon Dioxide Anion Gap BUN Creatinine Est GFR ( Amer) Est GFR (Non-Af Amer) Glucose Lactic Acid Calcium Total Bilirubin AST ALT Alkaline Phosphatase Total Protein Albumin TSH 2.16 Impressions: Chest/Abdomen CTA 12/15/17 00:00 IMPRESSION: No pulmonary emboli. Bilateral pleural effusions and basilar opacities. Chest X-Ray 12/15/17 09:24 IMPRESSION: Cardiomegaly and increasing vascular congestion. Assessment & Plan - Diagnosis (1) Acute respiratory failure with hypoxia and hypercapnia Is this a current diagnosis for this admission?: Yes Plan: Likely due to CHF exacerbation caused by medication noncompliance and COPD exacerbation. Elevated BNP, negative troponins. Improving. Still requiring BiPAP. ABG from this morning showing mild improvement of his hypoxia and hypercarbia. Continue diuresis, strict in and out, fluid restriction, daily weights. CTA negative for any PE. Continue as needed DuoNeb, BiPAP , empiric antibiotics, steroids, AMY/LABA No weight changes , +24 mL fluid balance. Cultures negative so far. (2) HTN (hypertension) Is this a current diagnosis for this admission?: Yes Plan: Normotensive at the moment. Continue Lasix. Restart home meds once clinically appropriate. Monitor vitals (3) Chronic atrial fibrillation Is this a current diagnosis for this admission?: No Plan: Rate and rhythm control. Continue Xarelto (4) Acute exacerbation of CHF (congestive heart failure) Qualifiers: Heart failure type: diastolic Qualified Code(s): I50.33 - Acute on chronic diastolic (congestive) heart failure Is this a current diagnosis for this admission?: Yes Plan: Likely due to medication noncompliance. 2D echo on this admission shows improvement of systolic and diastolic dysfunction. Continue Lasix. Start DARWIN , beta-neto at a lower dosage. Up titrate beta-blockers as tolerated. Strict in and out, fluid restriction, daily weights, cardiac diet. (5) COPD (chronic obstructive pulmonary disease) Qualifiers: COPD type: unspecified COPD Qualified Code(s): J44.9 - Chronic obstructive pulmonary disease, unspecified Is this a current diagnosis for this admission?: Yes Plan: History of chronic smoking. No PFT available. Continue duo nebs as needed, LAMA/AMY scheduled. BiPAP. Cultures negative. Day 2 of levofloxacin. Day 2 of steroids. (6) Morbid obesity with BMI of 50.0-59.9, adult Is this a current diagnosis for this admission?: No Plan: Lifestyle and diet modification. (7) Obstructive sleep apnea Is this a current diagnosis for this admission?: Yes Plan: CPAP at night. Outpatient nocturnal polysomnography.
[2017-12-16] MEDS: RIVAROXABAN 10 MG TABLET PO SCH (17:08)
[2017-12-16] MEDS: ATORVASTATIN CALCIUM 40 MG TABLET PO SCH (21:20)
[2017-12-17] MEDS: IPRATROPIUM/ALBUTEROL 0.5-2.5 MG/3 ML AMPUL NEB SCH ×4 (01:49→19:48)
[2017-12-17 05:23] LABS: HEMATOCRIT 40.7 % (37.9-51.0); HEMOGLOBIN 13.5 g/dL (13.5-17.0); MEAN CORPUSCULAR HEMOGLOBIN 29.4 pg (27.0-33.4); MEAN CORPUSCULAR HGB CONC 33.3 g/dL (32.0-36.0); MEAN CORPUSCULAR VOLUME 89 fl (80-97); PLATELET COUNT 245 10^3/uL (150-450); RED CELL DISTRIBUTION WIDTH 15.5 % (11.5-14.0); WHITE BLOOD COUNT 14.1 10^3/uL (4.0-10.5)
[2017-12-17 05:43] LABS: ALANINE AMINOTRANSFERASE 15 U/L (21-72); ALBUMIN 4.1 g/dL (3.5-5.0); ALKALINE PHOSPHATASE 70 U/L (38-126); ANION GAP 13 (5-19); ASPARTATE AMINO TRANSFERASE 22 U/L (17-59); BILIRUBIN,DIRECT 0.3 mg/dL (0.0-0.4); BILIRUBIN,TOTAL 0.9 mg/dL (0.2-1.3); BLOOD UREA NITROGEN 34 mg/dL (7-20); CALCIUM 9.4 mg/dL (8.4-10.2); CARBON DIOXIDE 31 mmol/L (22-30); CHLORIDE 98 mmol/L (98-107); GLUCOSE 153 mg/dL (75-110); POTASSIUM 4.7 mmol/L (3.6-5.0); SODIUM 142.2 mmol/L (137-145)
[2017-12-17 05:44] LABS: ABSOLUTE MONOCYTES # (MANUAL) 0.4 10^3/uL (0.1-1.4); ABSOLUTE NEUTROPHILS# (MANUAL) 12.7 10^3/uL (1.7-8.2); BASOPHILS % (MANUAL) 0 % (0-2); EOSINOPHILS % (MANUAL) 0 % (0-6); LYMPHOCYTES % (MANUAL) 6 % (13-45); MONOCYTES % (MANUAL) 3 % (3-13); SEGMENTED NEUTROPHILS % (MAN) 90 % (42-78); TOTAL CELLS COUNTED 100
[2017-12-17 05:45] LABS: ANISOCYTOSIS SLIGHT; PLATELET COMMENT ADEQUATE
[2017-12-17] MEDS: METHYLPREDNISOLONE INJ 40 MG/1 ML SDV IV SCH ×2 (09:25→21:53)
[2017-12-17] MEDS: FUROSEMIDE INJ/PF 40 MG/4 ML SDV IV SCH ×2 (09:26→21:53)
--- NOTE | 2017-12-17 09:28 | PDOC PROGRESS REPORT ---
Subjective Progress Note for:: 12/17/17 Subjective:: YARELI LIMON III is a 67 year old male history of A. fib on chronic anticoagulation, COPD due to chronic smoking on nocturnal home oxygen, CHF diastolic heart failure based on echo on 03/2017, hypertension epilepsy status post brain surgery in 1992 currently not on antiseizure meds, patient also mentions that he has a pacemaker placed but cannot provide further details. Last admission here at [facility] was on 08/04/2017 and discharge 08/11/2017. He was admitted for shortness of breath due to acute respiratory failure secondary to CHF exacerbation. He was also treated for underlying COPD exacerbation with bronchodilators antibiotics and steroids. He was discharged on home O2 and was asked to follow-up with a agency sales development associate as outpatient. She remained hemodynamically stable throughout hospitalization. He presented to ED complaining of worsening shortness of breath exertion, orthopnea, dry nonproductive cough. He was here seen at [facility] 2 days prior to this visit with complaints he was diagnosed with CHF exacerbation and was discharged on Lasix. Patient stated he is been taking his Lasix however his shortness of breath has been increasing. Obstructive sleep apnea and using CPAP at night. Also mentions that he used to be on diuretics but it was stopped by his primary physician who is a nurse practitioner. In ED and ABG was done which was of hypoxic respiratory failure with hypercarbia and elevated BNP. He was placed on nitro drip and hospital was consulted for admission. 12/16/2017. No acute events overnight. On my encounter patient is comfortably resting in his bed while using BiPAP. He is stating that he is feeling much better denies any recurrence of shortness of breath or chest pain. Patient has not have any fever nausea vomiting diarrhea constipation overnight patient has been urinating a lot since admission. 12/17/2017. No acute events overnight. On my encounter patient is comfortably resting in his bed while using his BiPAP. Stating that he is feeling much better than yesterday. Not very happy with his volume restriction and he wants to keep having his diet sodas. He denies any fever, chills, nausea, vomiting, diarrhea, abdominal pain, constipation or any urinary symptoms. Reason For Visit: ACUTE HYPOXIC AND HYPERCAPNIC RESPIRATORY FAILURE Physical Exam Vital Signs: Temp Pulse Resp BP Pulse Ox 98.9 F 63 18 109/56 L 95 12/17/17 03:35 12/17/17 07:47 12/17/17 07:47 12/17/17 03:35 12/17/17 07:47 Intake & Output 12/16/17 12/17/17 12/18/17 06:59 06:59 06:59 Intake Total 819 682 Output Total 800 350 Balance 19 332 Weight 135.2 kg 132.4 kg General appearance: PRESENT: no acute distress, well-developed, well-nourished Respiratory exam: PRESENT: clear to auscultation tami. ABSENT: rales, rhonchi, wheezes Cardiovascular exam: PRESENT: RRR. ABSENT: diastolic murmur, rubs, systolic murmur GI/Abdominal exam: PRESENT: normal bowel sounds, soft. ABSENT: distended, guarding, mass, organolmegaly, rebound, tenderness Extremities exam: PRESENT: full ROM. ABSENT: calf tenderness, clubbing, pedal edema Neurological exam: PRESENT: alert, awake, oriented to person, oriented to place , oriented to time, oriented to situation, CN II-XII grossly intact. ABSENT: motor sensory deficit Results Laboratory Results: 12/17/17 04:36 12/17/17 04:36 12/17/17 12/17/17 04:36 04:36 WBC 14.1 H RBC 4.60 Hgb 13.5 Hct 40.7 MCV 89 MCH 29.4 MCHC 33.3 RDW 15.5 H Plt Count 245 Seg Neutrophils % Not Reportable Lymphocytes % Not Reportable Monocytes % Not Reportable Eosinophils % Not Reportable Basophils % Not Reportable Absolute Neutrophils Not Reportable Absolute Lymphocytes Not Reportable Absolute Monocytes Not Reportable Absolute Eosinophils Not Reportable Absolute Basophils Not Reportable Sodium 142.2 Potassium 4.7 Chloride 98 Carbon Dioxide 31 H Anion Gap 13 BUN 34 H Creatinine 1.06 Est GFR ( Amer) > 60 Est GFR (Non-Af Amer) > 60 Glucose 153 H Calcium 9.4 Magnesium 2.5 H Total Bilirubin 0.9 AST 22 ALT 15 L Alkaline Phosphatase 70 Total Protein 7.0 Albumin 4.1 Impressions: Chest/Abdomen CTA 12/15/17 00:00 IMPRESSION: No pulmonary emboli. Bilateral pleural effusions and basilar opacities. Chest X-Ray 12/15/17 09:24 IMPRESSION: Cardiomegaly and increasing vascular congestion. Assessment & Plan - Diagnosis (1) Acute respiratory failure with hypoxia and hypercapnia Is this a current diagnosis for this admission?: Yes Plan: Likely due to CHF exacerbation caused by medication noncompliance and COPD exacerbation. Elevated BNP, negative troponins. Improving. Intermittent BiPAP. Switch to nightly BiPAP any supplemental oxygen. Continue diuresis, strict in and out, fluid restriction, daily weights. CTA negative for any PE. Continue as needed DuoNeb, BiPAP , empiric antibiotics, steroids, AMY/LABA -3 pounds weight changes , 224 fluid balance. Cultures negative so far. (2) HTN (hypertension) Is this a current diagnosis for this admission?: Yes Plan: Normotensive at the moment. Decrease Lasix to 20 mg p.o. daily due to the fact BUN and creatinine are increasing mildly. Restart home meds once clinically appropriate. Monitor vitals (3) Chronic atrial fibrillation Is this a current diagnosis for this admission?: No Plan: Rate and rhythm control. Continue Xarelto (4) Acute exacerbation of CHF (congestive heart failure) Qualifiers: Heart failure type: diastolic Qualified Code(s): I50.33 - Acute on chronic diastolic (congestive) heart failure Is this a current diagnosis for this admission?: Yes Plan: Likely due to medication noncompliance. 2D echo on this admission shows improvement of systolic and diastolic dysfunction. Decrease Lasix to 20 mg IV twice daily the fact that BUN and creatinine are increasing mildly. Start DARWIN, beta-neto at a lower dosage. Up titrate beta-blockers as tolerated. Strict in and out, fluid restriction, daily weights, cardiac diet. (5) COPD (chronic obstructive pulmonary disease) Qualifiers: COPD type: unspecified COPD Qualified Code(s): J44.9 - Chronic obstructive pulmonary disease, unspecified Is this a current diagnosis for this admission?: Yes Plan: History of chronic smoking. No PFT available. Continue duo nebs as needed, LAMA/AMY scheduled. Nocturnal BiPAP. Cultures negative. Day 2 of levofloxacin. Day 3 of steroids. (6) Morbid obesity with BMI of 50.0-59.9, adult Is this a current diagnosis for this admission?: No Plan: -3 pound weight changes. Possibly due to diuresis. Lifestyle and diet modification. (7) Obstructive sleep apnea Is this a current diagnosis for this admission?: Yes Plan: CPAP at night. Outpatient nocturnal polysomnography.
[2017-12-17] MEDS: DOCUSATE SODIUM 100 MG CAPSULE PO SCH ×2 (09:58→17:24)
[2017-12-17] MEDS: LISINOPRIL 10 MG TABLET PO SCH (09:58)
[2017-12-17] MEDS: METOPROLOL SUCCINATE 50 MG TAB.SR.24H PO SCH ×2 (09:59→21:51)
[2017-12-17] MEDS: SALMETEROL XINAFOATE DISKUS 50 MCG/1 DOSE 28 DOSE IH SCH ×2 (10:02→21:52)
[2017-12-17] MEDS: TIOTROPIUM BROMIDE DPI 5 CAP/KIT (18 MCG/CAP) IH SCH (10:02)
[2017-12-17] MEDS: LEVOFLOXACIN 500 MG/D5W RTU 500 MG/100 ML RTUPB IV SCH (10:09)
[2017-12-17 11:02] LABS: ARTERIAL BLOOD BASE EXCESS 2.2 mmol/L; ARTERIAL BLOOD H2CO3 1.17 mmol/L (1.05-1.35); ARTERIAL BLOOD HCO3 26.3 mmol/L (20-24); ARTERIAL BLOOD O2 SATURATION 92.4 % (94-98); ARTERIAL BLOOD PH 7.45 (7.35-7.45); ARTERIAL BLOOD PO2 61.1 mmHg (80-100); ARTERIAL BLOOD TOTAL CO2 27.5 mmol/L (23-27)
[2017-12-17 11:03] LABS: ARTERIAL BLOOD FIO2 2L
[2017-12-17] MEDS: LANSOPRAZOLE 30 MG TAB.RAP.DR PO SCH (17:24)
[2017-12-17] MEDS: RIVAROXABAN 10 MG TABLET PO SCH (17:24)
[2017-12-17] MEDS: ATORVASTATIN CALCIUM 40 MG TABLET PO SCH (21:50)
[2017-12-17] MEDS: OXYCODONE-ACETAMINOPHEN 5-325 MG TABLET PO PRN (21:52)
[2017-12-18] MEDS: IPRATROPIUM/ALBUTEROL 0.5-2.5 MG/3 ML AMPUL NEB SCH ×3 (02:06→14:15)
[2017-12-18 05:26] LABS: HEMATOCRIT 41.9 % (37.9-51.0); HEMOGLOBIN 13.5 g/dL (13.5-17.0); MEAN CORPUSCULAR HEMOGLOBIN 28.8 pg (27.0-33.4); MEAN CORPUSCULAR HGB CONC 32.2 g/dL (32.0-36.0); MEAN CORPUSCULAR VOLUME 90 fl (80-97); PLATELET COUNT 271 10^3/uL (150-450); RED BLOOD COUNT 4.67 10^6/uL (4.35-5.55); RED CELL DISTRIBUTION WIDTH 15.6 % (11.5-14.0); WHITE BLOOD COUNT 17.9 10^3/uL (4.0-10.5)
[2017-12-18 05:48] LABS: ALANINE AMINOTRANSFERASE 17 U/L (21-72); ALBUMIN 3.9 g/dL (3.5-5.0); ALKALINE PHOSPHATASE 63 U/L (38-126); ANION GAP 14 (5-19); ASPARTATE AMINO TRANSFERASE 26 U/L (17-59); BILIRUBIN,DIRECT 0.3 mg/dL (0.0-0.4); BILIRUBIN,TOTAL 0.6 mg/dL (0.2-1.3); BLOOD UREA NITROGEN 39 mg/dL (7-20); CALCIUM 9.2 mg/dL (8.4-10.2); CARBON DIOXIDE 30 mmol/L (22-30); CHLORIDE 98 mmol/L (98-107); GLUCOSE 172 mg/dL (75-110); POTASSIUM 4.6 mmol/L (3.6-5.0); SODIUM 141.5 mmol/L (137-145); TOTAL PROTEIN 6.7 g/dL (6.3-8.2)
[2017-12-18 06:00] LABS: ABSOLUTE LYMPHOCYTES# (MANUAL) 0.5 10^3/uL (0.5-4.7); ABSOLUTE MONOCYTES # (MANUAL) 0.5 10^3/uL (0.1-1.4); ABSOLUTE NEUTROPHILS# (MANUAL) 16.8 10^3/uL (1.7-8.2); BASOPHILS % (MANUAL) 0 % (0-2); EOSINOPHILS % (MANUAL) 0 % (0-6); LYMPHOCYTES % (MANUAL) 3 % (13-45); MONOCYTES % (MANUAL) 3 % (3-13); SEGMENTED NEUTROPHILS % (MAN) 94 % (42-78); TOTAL CELLS COUNTED 100
[2017-12-18 06:01] LABS: ANISOCYTOSIS SLIGHT; PLATELET COMMENT ADEQUATE; POLYCHROMASIA 1+
[2017-12-18] MEDS: LANSOPRAZOLE 30 MG TAB.RAP.DR PO SCH ×3 (06:02→17:00)
[2017-12-18] MEDS: LEVOFLOXACIN 500 MG/D5W RTU 500 MG/100 ML RTUPB IV SCH (07:56)
[2017-12-18] MEDS: TIOTROPIUM BROMIDE DPI 5 CAP/KIT (18 MCG/CAP) IH SCH (09:40)
[2017-12-18] MEDS: SALMETEROL XINAFOATE DISKUS 50 MCG/1 DOSE 28 DOSE IH SCH (09:40)
[2017-12-18] MEDS: FUROSEMIDE INJ/PF 40 MG/4 ML SDV IV SCH (09:40)
[2017-12-18] MEDS: METHYLPREDNISOLONE INJ 40 MG/1 ML SDV IV SCH (09:41)
[2017-12-18] MEDS: LISINOPRIL 10 MG TABLET PO SCH (09:41)
[2017-12-18] MEDS: DOCUSATE SODIUM 100 MG CAPSULE PO SCH ×2 (09:41→17:00)
[2017-12-18] MEDS: METOPROLOL SUCCINATE 50 MG TAB.SR.24H PO SCH (09:41)
[2017-12-18] MEDS: RIVAROXABAN 10 MG TABLET PO SCH (17:00)
[2017-12-18 17:40] VITALS: BP 106/81
--- NOTE | 2017-12-18 19:39 | PDOC DISCHARGE SUMMARY ---
General - Admit/Disc Date/PCP Admission Date/Primary Care Provider: 12/15/17 11:22 JOR[facility] HE[facility]SUMMER Discharge Date: 12/18/17 - Discharge Diagnosis (1) Acute respiratory failure with hypoxia and hypercapnia Is this a current diagnosis for this admission?: Yes Summary: The patient reports that he feels much better. The etiology of this event was likely cardiac. With intravenous Lasix he feels much better and has had good urine output with a 3 pound weight loss. The patient has not been on furosemide for some time. I will keep him on furosemide 40 mg daily with his potassium supplement. He needs a follow-up with his primary care provider and he should follow-up with cardiology as well. He does have a home BiPAP unit and he will continue to use that. On room air at rest his saturation remained greater than 90%. He will travel without oxygen because he does live close to the facility. His oxygen is available at home. (2) Systolic and diastolic CHF, acute on chronic Is this a current diagnosis for this admission?: Yes Summary: As noted above the patient has not been on his furosemide. He is back on his beta-sabrina, DARWIN inhibitor and diuretic. He will need to monitor his weight and follow a low-sodium diet. As noted above he is to follow-up with cardiology. (3) Chronic atrial fibrillation Is this a current diagnosis for this admission?: No Summary: Patient has exhibited good rate control with his beta-sabrina. He will continue the current regimen. He has chronic anticoagulation with Xarelto. (4) COPD (chronic obstructive pulmonary disease) Is this a current diagnosis for this admission?: Yes Summary: The patient will return to his previous regimen with nebulizer therapies as needed and baseline inhaler therapy. (5) Obstructive sleep apnea Is this a current diagnosis for this admission?: Yes Summary: Continue BiPAP at home. (6) Morbid obesity with BMI of 50.0-59.9, adult Is this a current diagnosis for this admission?: Yes Summary: He is morbid obesity certainly contributes to his chronic illness and susceptibility to recurrent exacerbation. In addition to following a cardiac diet the patient should consider serious attempt at weight loss. - Additional Information Discharge Diet: Cardiac Discharge Activity: Activity As Tolerated, Balance Activity w/Rest, Energy Conservation, Weigh Daily Prescriptions: Atorvastatin Calcium [Lipitor 40 mg Tablet] 40 mg PO QHS #30 tablet Furosemide 40 mg PO DAILY #60 tablet Lansoprazole [Prevacid 30 mg Odt Tablet] 30 mg PO BID@0600,1700 #60 tab.rap. Home Medications: Furosemide [Lasix 20 mg Tablet] 20 mg PO QAM 12/15/17 Lisinopril [Prinivil] 20 mg PO DAILY 12/15/17 Metoprolol Succinate [Toprol Xl] 50 mg PO Q12 12/15/17 Potassium Chloride [Klor-Con 10 Meq Capsule ER] 20 meq PO DAILY 12/15/17 Rivaroxaban [Xarelto] 20 mg PO QPM 12/15/17 Atorvastatin Calcium [Lipitor 40 mg Tablet] 40 mg PO QHS #30 tablet 12/18/17 Furosemide 40 mg PO DAILY #60 tablet 12/18/17 Ipratropium/Albuterol Sulfate [Duoneb 3 ml Ampul] 3 ml [facility] RTQ6 vial.banner Lansoprazole [Prevacid 30 mg Odt Tablet] 30 mg PO BID@0600,1700 #60 tab.rap 12/18/17 Salmeterol Xinafoate [Serevent Diskus 50 Mcg/Dose 28 Dose/Diskus] 50 mcg IH Q12 disk 12/18/17 Tiotropium [place] [Spiriva Handihaler 5 Cap/Kit (18 Mcg/Cap)] 1 cap IH DAILY kit 12/18/17 History of Present Illness Patient complains of: He reports that his breathing is much improved. He states that he is almost back to baseline. History of Present Illness: YARELI LIMON III is a 67 year old male who was last admitted to [facility] in July. This was also due to acute respiratory failure secondary to congestive heart failure exacerbation. He presented to the emergency department on December 15, 2017. He was experiencing worsening shortness of breath as well as orthopnea, nonproductive cough and shortness of breath. He had an emergency department visit 2 days prior but failed outpatient therapy. There are multiple comorbidities contributing to his decompensation. Hospital Course Hospital Course: The patient was placed on his BiPAP, intravenous steroids and a nebulizer regimen for the exacerbation of his COPD. He exhibited good urine output and his blood pressure was stable enough to resume beta-blockade and DARWIN inhibition therapy. His atrial fibrillation remained reasonably well controlled. He responded nicely to medication albeit over several days. He has an elevated white blood cell count likely due to the corticosteroids. His hemoglobin was stable. Electrolytes were stable and his GFR remained greater than 60. After several days the patient reports feeling back to baseline and is comfortable going home. Physical Exam Vital Signs: Temp Pulse Resp BP Pulse Ox 97.8 F 60 22 H 106/81 95 12/18/17 17:36 12/18/17 17:36 12/18/17 17:36 12/18/17 17:36 12/18/17 17:36 Intake & Output 12/17/17 12/18/17 12/19/17 06:59 06:59 05:59 Intake Total 682 1019 766 Output Total 350 1250 500 Balance 332 -231 266 Weight 132.4 kg 132 kg General appearance: PRESENT: no acute distress, cooperative, morbidly obese, well-developed Head exam: PRESENT: atraumatic, normocephalic Eye exam: PRESENT: conjunctiva pink, EOMI. ABSENT: scleral icterus Ear exam: PRESENT: normal external ear exam Mouth exam: PRESENT: moist, tongue midline Neck exam: PRESENT: full ROM. ABSENT: carotid bruit, lymphadenopathy Respiratory exam: PRESENT: decreased breath sounds - Breath sounds were decreased partly due to his body habitus. I did not appreciate any rales or wheezes this afternoon., symmetrical, tachypnea. ABSENT: rhonchi, wheezes Cardiovascular exam: PRESENT: RRR, +S1, +S2 GI/Abdominal exam: PRESENT: distended - Protuberant abdomen, normal bowel sounds , soft. ABSENT: guarding, tenderness Extremities exam: PRESENT: pedal edema. ABSENT: calf tenderness Musculoskeletal exam: PRESENT: ambulatory Neurological exam: PRESENT: alert, awake, oriented to person, oriented to place , oriented to situation Psychiatric exam: PRESENT: appropriate affect, normal mood Results Laboratory Results: 12/18/17 04:15 12/18/17 04:15 12/18/17 12/18/17 04:15 04:15 WBC 17.9 H RBC 4.67 Hgb 13.5 Hct 41.9 MCV 90 MCH 28.8 MCHC 32.2 RDW 15.6 H Plt Count 271 Seg Neutrophils % Not Reportable Lymphocytes % Not Reportable Monocytes % Not Reportable Eosinophils % Not Reportable Basophils % Not Reportable Absolute Neutrophils Not Reportable Absolute Lymphocytes Not Reportable Absolute Monocytes Not Reportable Absolute Eosinophils Not Reportable Absolute Basophils Not Reportable Sodium 141.5 Potassium 4.6 Chloride 98 Carbon Dioxide 30 Anion Gap 14 BUN 39 H Creatinine 0.97 Est GFR ( Amer) > 60 Est GFR (Non-Af Amer) > 60 Glucose 172 H Calcium 9.2 Magnesium 2.5 H Total Bilirubin 0.6 AST 26 ALT 17 L Alkaline Phosphatase 63 Total Protein 6.7 Albumin 3.9 Impressions: Chest/Abdomen CTA 12/15/17 00:00 IMPRESSION: No pulmonary emboli. Bilateral pleural effusions and basilar opacities. Chest X-Ray 12/15/17 09:24 IMPRESSION: Cardiomegaly and increasing vascular congestion. Qualifiers - * PATIENT BEING DISCHARGED WITH ANY OF THE FOLLOWING DIAGNOSIS: Heart Failure HF Pt being discharged on ACEI for LVEF less than 40%?: Yes HF Pt being discharged on ARBS for LVEF less than 40%?: No Reason(s) for not prescribing ARBS:: Not indicated - Ejection fraction greater than 65% HF Pt with Afib discharged with Warfarin?: No Reason(s) for not prescribing Warfarin:: Medical Contraindication - The patient is on Xarelto HF Pt discharged on evidence-based Beta Sabrina:: Yes Plan Discharge Plan: The patient will return to his previous medication regimen with the addition of furosemide. He will need to follow-up with cardiology. He should check his weights daily. He will resume his home BiPAP and nebulizer regimen. Time Spent: Greater than 30 Minutes
== END 2017-12-18 18:38 | disposition home or self-care (01) | DRG 291 ==
LOC: ER 09:01 → EH 11:22 → 3N 14:48
PROVIDERS: ADMIT Emergency Medicine; ATTEND Emergency Medicine
PROC: 5A09457 Assistance with Respiratory Ventilation, 24-96 Consecutive Hours, Continuous Positive Airway Pressure (ICD-10-PCS; principal; 2017-12-15)
DX: I11.0 Hypertensive heart disease with heart failure (principal); J96.01 Acute respiratory failure with hypoxia; J96.02 Acute respiratory failure with hypercapnia; Z68.43 Body mass index [BMI] 50.0-59.9, adult; J44.1 Chronic obstructive pulmonary disease with (acute) exacerbation; I50.43 Acute on chronic combined systolic (congestive) and diastolic (congestive) heart failure; F25.9 Schizoaffective disorder, unspecified; G47.33 Obstructive sleep apnea (adult) (pediatric); I48.2 Chronic atrial fibrillation; E66.01 Morbid (severe) obesity due to excess calories; Z99.81 Dependence on supplemental oxygen; Z79.02 Long term (current) use of antithrombotics/antiplatelets; Z88.0 Allergy status to penicillin; Z88.8 Allergy status to other drugs, medicaments and biological substances; Z87.891 Personal history of nicotine dependence
CPT/HCPCS: 36415; 36600; 71045; 71275; 80053; 80061; 81001; 82550; 82553; 82803; 83036; 83605; 83735; 83880; 84443; 84484; 85025; 87040; 93005; 93010; 93306; 94640; 94660; 96365; 96366; 96375; 99285; G8978-GP; G8979-GP; G8980-GP; J1940; J1956; J2920; J3490; J7620

== ENCOUNTER 2018-01-02 02:56 | Emergency (ER) | payer MEDICARE ==
[2018-01-02] MEDS ORDERED: METHYLPREDNISOLONE INJ 125 MG/2 ML SDV IV ONE (03:38)
[2018-01-02] MEDS ORDERED: IPRATROPIUM/ALBUTEROL 0.5-2.5 MG/3 ML AMPUL NEB ONE (03:38)
--- NOTE | 2018-01-02 03:57 | ER Document Report ---
ED Respiratory Problem - General Chief Complaint: Breathing Difficulty Stated Complaint: SHORTNESS OF BREATH Time Seen by Provider: 01/02/18 03:18 Mode of Arrival: Ambulatory Information source: Patient Notes: Patient states that around midnight he was getting ready to go to bed and he developed shortness of breath. Patient states that at that time he did have a numb feeling in his chest but denies any chest pain symptoms. Patient states that he has had a cough for the past 4 hours. Patient denies any nausea vomiting or back pain. Patient does report a history of A. fib, COPD as well as CHF and hypertension. Patient reports being compliant with his medications. Patient is a former smoker and states that he does have home oxygen that he only uses as needed. Patient also reports that he does have a CPAP machine at home. Patient does report increased sputum production. Patient states he is coughing up green sputum. TRAVEL OUTSIDE OF THE [place] IN LAST 30 DAYS: No - HPI Patient complains to provider of: COPD, Cough, Short of breath. No: Chest pain Onset: Other - Midnight Quality of pain: No pain Pain Level: Denies Context: Hx CHF, Hx COPD. denies: Recent immobilization Sputum amount: Moderate Sputum color: Green Associated symptoms: Cough, Runny nose, Short of breath, Wheezing. denies: Bloody cough, Chest pain/discomfort, Fever Similar symptoms previously: Yes Recently seen / treated by doctor: No - Related Data Allergies/Adverse Reactions: Penicillins Adverse Reaction (Verified 01/02/18 02:58) "cholesterol medicines" Allergy (Uncoded 12/15/17 09:08) Past Medical History - General Information source: Patient - Social History Smoking Status: Former Smoker Frequency of alcohol use: None Drug Abuse: None Occupation: None Lives with: Alone Family History: Reviewed & Not Pertinent, Hypertension - Past Medical History Cardiac Medical History: Reports: Hx Atrial Fibrillation, Hx Congestive Heart Failure, Hx Hypertension Denies: Hx DVT Pulmonary Medical History: Reports: Hx Bronchitis, Hx COPD, Hx Sleep Apnea Neurological Medical History: Reports: Hx Seizures Renal/ Medical History: Denies: Hx Peritoneal Dialysis Psychiatric Medical History: Reports: Hx Schizoaffective Disorder Denies: Hx Depression Past Surgical History: Reports: Hx Cardiac Surgery - Pacemaker, Hx Neurologic Surgery - as a child for seizures - has not had seizures since that time., Hx Pacemaker - Pacemaker however not noted on chest x-ray., Other - brain surgery - Immunizations Immunizations up to date: Yes Hx Diphtheria, Pertussis, Tetanus Vaccination: No Review of Systems - Review of Systems Constitutional: No symptoms reported. denies: Fever, Recent illness EENT: Nose congestion. denies: Throat pain, Difficulty swallowing Cardiovascular: Chest pain - Numb sensation in his chest that lasted for a few moments around midnight and then resolved Respiratory: Cough, Short of breath, Stridor, Wheezing Gastrointestinal: No symptoms reported. denies: Abdominal pain, Diarrhea, Nausea, Vomiting Genitourinary: No symptoms reported Male Genitourinary: No symptoms reported Musculoskeletal: No symptoms reported. denies: Back pain Skin: No symptoms reported Hematologic/Lymphatic: No symptoms reported Neurological/Psychological: No symptoms reported. denies: Headaches Physical Exam - Vital signs Vitals: Temp Pulse Resp BP Pulse Ox 98.2 F 69 24 H 164/93 H 93 01/02/18 03:04 01/02/18 03:04 01/02/18 03:04 01/02/18 03:04 01/02/18 03:04 - General General appearance: Appears well, Alert In distress: None - HEENT Head: Normocephalic, Atraumatic Eyes: Normal Conjunctiva: Normal Nasal: Normal Mouth/Lips: Normal Mucous membranes: Normal Neck: Normal, Supple. No: Lymphadenopathy - Respiratory Respiratory status: No respiratory distress Chest status: Tender Breath sounds: Nonproductive cough, Wheezing - faint scattered Chest palpation: Normal - Cardiovascular Rhythm: Regular Heart sounds: S1 appreciated, S2 appreciated - Abdominal Inspection: Morbidly Obese Bowel sounds: Normal Tenderness: Nontender - Back Back: Normal, Nontender. No: CVA tenderness - Extremities General upper extremity: Normal inspection, Normal strength General lower extremity: Edema - 2+bilat LE, Normal strength - Neurological Neuro grossly intact: Yes Cognition: Normal Alba Coma Scale Eye Opening: Spontaneous Vicco Coma Scale Verbal: Oriented Alba Coma Scale Motor: Obeys Commands Vicco Coma Scale Total: 15 - Psychological Associated symptoms: Normal affect, Normal mood - Skin Skin Temperature: Warm Skin Moisture: Dry Skin Color: Normal Course - Re-evaluation Re-evalutation: 01/02/18 05:06 Patient states that he is not having any shortness of breath symptoms after the nebulizer treatment at this time. Patient denies any chest pain symptoms. Vital signs stable. Patient is requesting a blanket so that he can sleep at this time. 01/02/18 05:[address] Chen regarding patient presentation and diagnostic evaluation. Patient with stable vital signs without any hypoxia. Patient denies any chest pain symptoms. Chest x-ray reviewed demonstrating COPD, no prominent vascular congestion, no concern for CHF exacerbation at this time. Dr. Chen agrees with plan for discharge treating for COPD exacerbation at this time. Patient advised that daily use of his nasal decongestant medication can worsen his nasal congestion symptoms. Attempted to educate patient on rhinitis medicamentosa, patient insistent that his nasal medication always helps with his congestion symptoms. 01/02/18 06:19 - Vital Signs Vital signs: Temp Pulse Resp BP Pulse Ox 98.2 F 69 24 H 164/93 H 93 01/02/18 03:04 01/02/18 03:04 01/02/18 03:04 01/02/18 03:04 01/02/18 03:31 - Laboratory Result Diagrams: 01/02/18 04:29 01/02/18 04:29 Laboratory results interpreted by me: 01/02/18 01/02/18 01/02/18 04:29 04:29 04:29 WBC 12.3 H RDW 14.4 H Absolute Neutrophils 8.9 H VBG pH 7.44 H Direct Bilirubin 0.5 H ALT 16 L Labs- Entire Visit 01/02/18 01/02/18 01/02/18 04:29 04:29 04:29 WBC 12.3 H RBC 4.70 Hgb 13.8 Hct 40.8 MCV 87 MCH 29.3 MCHC 33.7 RDW 14.4 H Plt Count 234 Seg Neutrophils % 72.2 Lymphocytes % 13.9 Monocytes % 8.2 Eosinophils % 4.7 Basophils % 1.0 Absolute Neutrophils 8.9 H Absolute Lymphocytes 1.7 Absolute Monocytes 1.0 Absolute Eosinophils 0.6 Absolute Basophils 0.1 VBG pH VBG pCO2 VBG HCO3 VBG Base Excess Sodium 141.3 Potassium 4.8 Chloride 103 Carbon Dioxide 26 Anion Gap 12 BUN 19 Creatinine 0.80 Est GFR ( Amer) > 60 Est GFR (Non-Af Amer) > 60 Glucose 101 Calcium 9.1 Total Bilirubin 0.7 Direct Bilirubin 0.5 H Neonat Total Bilirubin Not Reportable Neonat Direct Bilirubin Not Reportable Neonat Indirect Bili Not Reportable AST 29 ALT 16 L Alkaline Phosphatase 64 Creatine Kinase 78 CK-MB (CK-2) 1.30 Troponin I < 0.012 NT-Pro-B Natriuret Pep 829 Total Protein 6.8 Albumin 4.1 01/02/18 04:29 WBC RBC Hgb Hct MCV MCH MCHC RDW Plt Count Seg Neutrophils % Lymphocytes % Monocytes % Eosinophils % Basophils % Absolute Neutrophils Absolute Lymphocytes Absolute Monocytes Absolute Eosinophils Absolute Basophils VBG pH 7.44 H VBG pCO2 41.2 VBG HCO3 27.4 VBG Base Excess 3.0 Sodium Potassium Chloride Carbon Dioxide Anion Gap BUN Creatinine Est GFR ( Amer) Est GFR (Non-Af Amer) Glucose Calcium Total Bilirubin Direct Bilirubin Neonat Total Bilirubin Neonat Direct Bilirubin Neonat Indirect Bili AST ALT Alkaline Phosphatase Creatine Kinase CK-MB (CK-2) Troponin I NT-Pro-B Natriuret Pep Total Protein Albumin - Diagnostic Test Radiology reviewed: Reports reviewed Discharge - Discharge Clinical Impression: Rhinitis medicamentosa COPD (chronic obstructive pulmonary disease) Qualifiers: COPD type: COPD with acute exacerbation Qualified Code(s): J44.1 - Chronic obstructive pulmonary disease with (acute) exacerbation Condition: Stable Disposition: HOME, SELF-CARE Instructions: Chronic Obstructive Lung Disease ([facility]), Doxycycline ([facility]), Steroid Medication Additional Instructions: Return immediately for any new or worsening symptoms Followup with your primary care provider, call tomorrow to make a followup appointment Chronic daily use of your nasal decongestant medication can lead to worsening nasal congestion symptoms. Prescriptions: RX: Doxycycline Hyclate 100 mg PO BID #20 capsule RX: Prednisone [Deltasone 20 mg Tablet] 2 tab PO DAILY 4 Days tablet Referrals: JORGE HEART FNP [Primary Care Provider] - 01/03/18
--- NOTE | 2018-01-02 04:03 | RADIOLOGY REPORT (SQ) ---
EXAM DESCRIPTION: XR CHEST 2 VIEWS COMPLETED DATE/TME: 01/02/2018 03:31 CLINICAL HISTORY: 67 years, Male, cp, sob COMPARISON: 12/15/2017 chest NUMBER OF VIEWS: 2 TECHNIQUE: Frontal and lateral views of the chest LIMITATIONS: None. FINDINGS: Stable cardiomegaly with ectasia thoracic aorta. Osteopenia with COPD. No pneumothorax. Scarring in the lung bases. IMPRESSION: Cardiomegaly with COPD 2010 [facility] [employer]- All Rights Reserved
[2018-01-02 04:47] LABS: ABSOLUTE BASOPHILS # (AUTO) 0.1 10^3/uL (0.0-0.2); ABSOLUTE EOSINOPHILS # (AUTO) 0.6 10^3/uL (0.0-0.6); ABSOLUTE LYMPHOCYTES (AUTO) 1.7 10^3/uL (0.5-4.7); ABSOLUTE NEUT (AUTO) 8.9 10^3/uL (1.7-8.2); EOSINOPHILS % (AUTO) 4.7 % (0-6); HEMATOCRIT 40.8 % (37.9-51.0); HEMOGLOBIN 13.8 g/dL (13.5-17.0); LYMPHOCYTES % (AUTO) 13.9 % (13-45); MEAN CORPUSCULAR HEMOGLOBIN 29.3 pg (27.0-33.4); MEAN CORPUSCULAR HGB CONC 33.7 g/dL (32.0-36.0); MEAN CORPUSCULAR VOLUME 87 fl (80-97); MONOCYTES % (AUTO) 8.2 % (3-13); PLATELET COUNT 234 10^3/uL (150-450); RED CELL DISTRIBUTION WIDTH 14.4 % (11.5-14.0); SEGMENTED NEUTROPHILS % (AUTO) 72.2 % (42-78); TOTAL CELLS COUNTED % (AUTO) 100 %; WHITE BLOOD COUNT 12.3 10^3/uL (4.0-10.5)
[2018-01-02 05:08] LABS: ALANINE AMINOTRANSFERASE 16 U/L (21-72); ALBUMIN 4.1 g/dL (3.5-5.0); ALKALINE PHOSPHATASE 64 U/L (38-126); ANION GAP 12 (5-19); ASPARTATE AMINO TRANSFERASE 29 U/L (17-59); BILIRUBIN,DIRECT 0.5 mg/dL (0.0-0.4); BILIRUBIN,TOTAL 0.7 mg/dL (0.2-1.3); BLOOD UREA NITROGEN 19 mg/dL (7-20); CALCIUM 9.1 mg/dL (8.4-10.2); CARBON DIOXIDE 26 mmol/L (22-30); CHLORIDE 103 mmol/L (98-107); CREATINE KINASE 78 U/L (55-170); GLUCOSE 101 mg/dL (75-110); POTASSIUM 4.8 mmol/L (3.6-5.0); SODIUM 141.3 mmol/L (137-145); TOTAL PROTEIN 6.8 g/dL (6.3-8.2); VENOUS BLOOD HCO3 27.4 mmol/L (20-32); VENOUS BLOOD PCO2 41.2 mmHg (35-63); VENOUS BLOOD PH 7.44 (7.30-7.42)
[2018-01-02 05:20] LABS: NT PRO BNP 829 pg/mL (5-900)
[2018-01-02 05:21] LABS: TROPONIN I < 0.012 ng/mL
[2018-01-02] MEDS ORDERED: DOXYCYCLINE HYCLATE 100 MG TABLET PO ONE (05:39)
[2018-01-02] MEDS ORDERED: ALBUTEROL SULFATE HFA (90 MCG/PUFF) 8 GM MDI (1 MDI/ER DISP) IH ONE (05:39)
[2018-01-02 06:43] VITALS: BP 150/98
--- NOTE | 2018-01-02 10:44 | EKG REPORT ---
SEVERITY:- ABNORMAL ECG - A-FLUTTER/FIBRILLATION NONSPECIFIC IVCD WITH LAD VS PACED BEATS : Confirmed by: Nona Burris 02-Jan-2018 10:43:23
== END 2018-01-02 06:45 | disposition home or self-care (01) ==
LOC: ER 02:56
DX: J44.1 Chronic obstructive pulmonary disease with (acute) exacerbation (principal); J31.0 Chronic rhinitis; R06.02 Shortness of breath; R20.0 Anesthesia of skin; R05 Cough; R09.81 Nasal congestion; R60.0 Localized edema; R09.89 Other specified symptoms and signs involving the circulatory and respiratory systems; Z87.891 Personal history of nicotine dependence; Z88.0 Allergy status to penicillin; Z88.8 Allergy status to other drugs, medicaments and biological substances
CPT/HCPCS: 93005; 94640; 99285; 36415; 82553; 82550; 85025; 80053; 84484; 82803; 83880; 71046; 93010; A9270 ×2; J2930; J3490; J7620

== ENCOUNTER 2018-08-06 23:37 | Emergency (ER) | payer MEDICARE ==
[2018-08-07 00:30] VITALS: BP 153/71
--- NOTE | 2018-08-07 02:14 | ER Document Report ---
ED Medical Screen (RME) - General Chief Complaint: Constipation Stated Complaint: STOMACH DISCOMFORT/CHEST PAIN Time Seen by Provider: 08/07/18 02:10 Primary Care Provider: JORGE HEART FNP [Primary Care Provider] - Follow up as needed Notes: Patient is a 68-year-old male who presents emergency department with a chief complaint of constipation. He states he states he has not had a bowel movement in the past 4 days. He was started on Percocet for his chronic back pain. And he states that he tried Ex-Lax at home, but has not had a bowel movement. Exam: Distended abdomen. I have greeted and performed a rapid initial assessment of this patient. A comprehensive ED assessment and evaluation of the patient, analysis of test results and completion of medical decision making process will be conducted by a n additional ED providers. TRAVEL OUTSIDE OF THE [place] IN LAST 30 DAYS: No - Related Data Allergies/Adverse Reactions: Penicillins Adverse Reaction (Verified 01/02/18 02:58) "cholesterol medicines" Allergy (Uncoded 12/15/17 09:08) Past Medical History - Past Medical History Cardiac Medical History: Reports: Hx Atrial Fibrillation, Hx Congestive Heart Failure, Hx Hypertension Denies: Hx DVT Pulmonary Medical History: Reports: Hx Bronchitis, Hx COPD, Hx Sleep Apnea Neurological Medical History: Reports: Hx Seizures Renal/ Medical History: Denies: Hx Peritoneal Dialysis Psychiatric Medical History: Reports: Hx Schizoaffective Disorder Denies: Hx Depression Past Surgical History: Reports: Hx Cardiac Surgery - Pacemaker, Hx Neurologic Surgery - as a child for seizures - has not had seizures since that time., Hx Pacemaker - Pacemaker however not noted on chest x-ray., Other - brain surgery - Immunizations Immunizations up to date: Yes Hx Diphtheria, Pertussis, Tetanus Vaccination: No History of Influenza Vaccine for 11/2016 - 04/2017 Season: Yes Influenza Administration Date for 11/2016 - 04/2017 Season: 01/15/17 Physical Exam - Vital signs Vitals: Temp Pulse Resp BP Pulse Ox 98.6 F 65 22 H 153/71 H 91 L 08/07/18 00:25 08/07/18 00:25 08/07/18 00:25 08/07/18 00:25 08/07/18 00:25 Course - Vital Signs Vital signs: Temp Pulse Resp BP Pulse Ox 98.6 F 65 22 H 153/71 H 91 L 08/07/18 00:25 08/07/18 00:25 08/07/18 00:25 08/07/18 00:25 08/07/18 00:25 Doctor's Discharge - Discharge Referrals: JORGE HEART FNP [Primary Care Provider] - Follow up as needed
[2018-08-07] MEDS ORDERED: MINERAL OIL 30 ML UDCUP PR ONE (03:57)
--- NOTE | 2018-08-07 04:07 | RADIOLOGY REPORT (SQ) ---
CLINICAL HISTORY: constipation COMPARISON: None. TECHNIQUE: XR ABDOMEN 1 VIEW (KUB) 08/07/2018 2:13 AM CDT FINDINGS: There is large amount of stool throughout the colon. There are no abnormal radiopaque foreign bodies or abnormal calcifications. Osseous structures are grossly unremarkable. IMPRESSION: Constipation.
[2018-08-07] MEDS ORDERED: NALOXONE HCL INJ 2 MG/2 ML DISP.SYRIN ENDO ONE (05:26)
[2018-08-07] MEDS ORDERED: POLYETHYLENE GLYCOL 3350 POWDER 17 GM/1 PACKET PO ONE (05:27)
[2018-08-07] MEDS ORDERED: MAGNESIUM CITRATE 296 ML BOTTLE PO ONE (05:32)
--- NOTE | 2018-08-07 05:35 | ER Document Report ---
ED General - General Chief Complaint: Constipation Stated Complaint: STOMACH DISCOMFORT/CHEST PAIN Time Seen by Provider: 08/07/18 02:10 Primary Care Provider: JORGE HEART FNP [Primary Care Provider] - Follow up in 3-5 days Notes: Patient is a pleasant 68-year-old male who presents with complaint of constipation. He denies abdominal pain. He says he feels as if his abdomen is bloated and is not had a bowel movement over 4 days. No nausea. No vomiting. No fevers. He was just started on Percocet for chronic back pain on . No other complaints at this time. TRAVEL OUTSIDE OF THE [place] IN LAST 30 DAYS: No - Related Data Allergies/Adverse Reactions: Penicillins Adverse Reaction (Verified 01/02/18 02:58) "cholesterol medicines" Allergy (Uncoded 12/15/17 09:08) Past Medical History - Social History Smoking Status: Unknown if Ever Smoked Frequency of alcohol use: None Drug Abuse: None Family History: Reviewed & Not Pertinent, Hypertension - Past Medical History Cardiac Medical History: Reports: Hx Atrial Fibrillation, Hx Congestive Heart Failure, Hx Hypertension Denies: Hx DVT Pulmonary Medical History: Reports: Hx Bronchitis, Hx COPD, Hx Sleep Apnea Neurological Medical History: Reports: Hx Seizures Renal/ Medical History: Denies: Hx Peritoneal Dialysis Psychiatric Medical History: Reports: Hx Schizoaffective Disorder Denies: Hx Depression Past Surgical History: Reports: Hx Cardiac Surgery - Pacemaker, Hx Neurologic Surgery - as a child for seizures - has not had seizures since that time., Hx Pacemaker - Pacemaker however not noted on chest x-ray., Other - brain surgery - Immunizations Immunizations up to date: Yes Hx Diphtheria, Pertussis, Tetanus Vaccination: No Review of Systems - Review of Systems Notes: My Normal Review Basic REVIEW OF SYSTEMS: CONSTITUTIONAL : Denies fever, chills, or sweats. Denies recent illness. Cardiac: No chest pain. RESPIRATORY: Denies cough, cold, or chest congestion. Denies shortness of breath, difficulty breathing, or wheezing. GASTROINTESTINAL: Denies abdominal pain. Denies nausea, vomiting, or diarrhea. Feels constipated. MUSCULOSKELETAL: Denies neck or back pain or joint pain or swelling. SKIN: Denies rash or skin lesions. NEUROLOGICAL: Denies altered mental status or loss of consciousness. Denies headache. Denies weakness or paralysis or loss of use of either side. Denies problems with gait or speech. Denies sensory or motor loss. ALL OTHER SYSTEMS REVIEWED AND NEGATIVE. Physical Exam - Vital signs Vitals: Temp Pulse Resp BP Pulse Ox 98.6 F 65 22 H 153/71 H 91 L 08/07/18 00:25 08/07/18 00:25 08/07/18 00:25 08/07/18 00:25 08/07/18 00:25 - Notes Notes: General Appearance: Well nourished, alert, cooperative, no acute distress, no obvious discomfort. Vitals: reviewed, See vital signs table. Eyes: PERRL, EOMI, Conjuctiva clear Mouth: No decreasd moisture Lungs: No wheezing, No rales, No rhonci, No accessory muscle use, good air exchange bilaterally. Heart: Normal rate, Regular rythm, No murmur, no rub Abdomen: Normal BS, soft, No rigidity, obese abdomen. No tenderness to palpation of the abdomen. Exam: No stool in rectal vault on digital rectal exam. Extremities: good pulses in all extremities, 1+ bilateral lower extremity edema. Skin: warm, dry, appropriate color, no rash Neuro: speech clear, oriented x 3, normal affect, responds appropriately to q uestions. Course - Re-evaluation Re-evalutation: 08/07/18 05:53 Patient was given an enema. He did have a few small balls of stool following enema. I will give him a dose of 1 mg of oral Narcan. I encouraged him to wean himself off the Percocet over the next 1 to 2 days. I will give him a bottle of mag citrate. I encouraged him to take one third of it this morning and one third of it this afternoon. If he still not had a bowel movement by tomorrow then will have him drink the last third of the bottle tomorrow morning. I encouraged him return to ER immediately if he has vomiting, abdominal pain, fevers, or feels unwell. Patient agrees with plan and will be discharged home. Dictation of this chart was performed using voice recognition software; therefore, there may be some unintended grammatical errors. - Vital Signs Vital signs: Temp Pulse Resp BP Pulse Ox 98.6 F 65 22 H 153/71 H 91 L 08/07/18 00:25 08/07/18 00:25 08/07/18 00:25 08/07/18 00:25 08/07/18 00:25 Discharge - Discharge Clinical Impression: Abdominal bloating Condition: Good Disposition: HOME, SELF-CARE Additional Instructions: Please try to stop taking the pain medicine that was prescribed by your doctor. Please wean off of this over the next 1 to 2 days. We have given you a bottle of a medication called magnesium citrate. This medication will help you have a bowel movement. Please drink a third of it this morning and a third of it this afternoon. If by tomorrow you still have not had a sizable bowel movement then you can drink the final third tomorrow morning. Please have a low threshold to return to the ER if you have severe pain, vomiting, fevers, or feel unwell. Follow-up with your primary care provider this week for reevaluation. Referrals: JORGE HEART FNP [Primary Care Provider] - Follow up in 3-5 days
== END 2018-08-07 05:45 | disposition home or self-care (01) ==
LOC: ER 23:37
DX: K59.00 Constipation, unspecified (principal); R14.0 Abdominal distension (gaseous); M54.9 Dorsalgia, unspecified; G89.29 Other chronic pain; R60.0 Localized edema; I10 Essential (primary) hypertension; J44.9 Chronic obstructive pulmonary disease, unspecified; Z88.8 Allergy status to other drugs, medicaments and biological substances
CPT/HCPCS: 99283; 74018; J3490 ×2; J2310